=== PATIENT | male | born 1935 | race Caucasian/White ===

== ENCOUNTER 2017-10-03 16:31 | Emergency (ER) | payer MEDICARE ==
[~2017-10-03] VITALS: Ht 177.8 cm; Wt 114.3 kg
[~2017-10-03 16:31] MED LIST: ALLO300T PO; AMLO10TA2 PO; ASPI-630 PO; CLON0.1T PO; HYDR-2868 PO; HYDR25TA9 PO; INSU100I13 SQ; INSU200I SQ; LISI40TA PO; METF-620 PO; METF500T4 PO; METO-247 PO; OXYC30TA64 PO; POTASSIUM CHLO10 MEQ PO; PROAIR HFA8.5 GM IH
[2017-10-03 16:38] VITALS: BP 184/84
--- NOTE | 2017-10-03 17:23 | PHYS DOC ---
Past Medical History Past Medical History: Cancer, Diabetes-Type II, Hypertension Additional Past Medical Histor: hx prostate ca Past Surgical History: Other Additional Past Surgical Histo: prostate 2000 Alcohol Use: None Drug Use: None Adult General Chief Complaint Chief Complaint: MECHANICAL FALL [facility] HPI Patient is a 82 year old male who was blowing leaves off of his doorsteps as he was going down the steps he tripped and fell forward. In the process of falling twisted his body and landed on his back neck and head. He says that he is having head and neck pain primarily in his right occipital region. He lost consciousness for approximately 30 seconds and his says his pupils were not reactive during that time. Patient takes a full dose aspirin daily. He is able to ambulate back to baseline at this time and he says he is feeling back to normal. He has an abrasion to his right ring finger and he says that his tetanus status is up-to-date. He denies any chest abdomen mid back low back or other extremity pain. He is in no obvious distress with normal vital signs. Review of Systems Review of Systems Constitutional: Denies fever or chills [] Eyes: Denies change in visual acuity, redness, or eye pain [] Respiratory: Denies cough or shortness of breath [] Cardiovascular: No additional information not addressed in HPI [] GI: Denies abdominal pain, nausea, vomiting, bloody stools or diarrhea [] : Denies dysuria or hematuria [] Musculoskeletal: Denies back pain or joint pain [] Integument: + abrasion Neurologic: + headache. No focal weakness or sensory changes [] All other systems were reviewed and found to be within normal limits, except as documented in this note. Allergies Allergies Allergies Coded Allergies Type Severity Reaction Last Updated Verified sitagliptin Allergy Severe Anaphylaxis 10/07/14 Yes NSAIDS (Non-Steroidal Anti-Inflamma Allergy Intermediate 10/08/14 Yes Physical Exam Physical Exam Constitutional: Well developed, well nourished, no acute distress, non-toxic appearance. [] HENT: Normocephalic, small contusion to R occipital region, bilateral external ears normal, oropharynx moist, no oral exudates, nose normal. [] Eyes: PERRLA, EOMI, conjunctiva normal, no discharge. [] Neck: Normal range of motion, no midline tenderness, supple, no stridor. [] Cardiovascular:Heart rate regular rhythm, no murmur [] Lungs & Thorax: Bilateral breath sounds clear to auscultation [] Abdomen: Bowel sounds normal, soft, no tenderness, no masses, no pulsatile masses. [] Skin: Warm, dry, no erythema, no rash. [] Back: No tenderness, no CVA tenderness. [] Extremities: No tenderness, no cyanosis, no clubbing, ROM intact, no edema. R index finger abrasion distally Neurologic: Alert and oriented X 3, normal motor function, normal sensory function, no focal deficits noted. [] Current Patient Data Vital Signs Vital Signs Date Time Temp Pulse Resp B/P (MAP) Pulse Ox O2 Delivery O2 Flow Rate FiO2 10/03/17 16:38 97.7 83 20 184/84 (117) 96 Room Air 97.7 EKG EKG [] Radiology/Procedures Radiology/Procedures CT HEAD AND CERVICAL SPINE WO dated 10/03/2017 4:49 PM Indication: Pain, head and neck painpt fell off stairs and hit posterior head, bruising and pain
prior sent. Comparison: No comparison is available. Technique: Contiguous axial imaging the head was performed from skull base to vertex. No contrast administered. In addition, axial imaging of the cervical spine acquired with thin cut coronal and sagittal reconstruction. One or more of the following individualized dose reduction techniques were utilized for this examination: 1. Automated exposure control 2. Adjustment of the mA and/or kV according to patient size 3. Use of iterative reconstruction technique Findings: Ventricles and sulci are mildly prominent for age. No midline shift or mass effect. Mild patchy low density in the deep/subcortical periventricular white matter. No hemorrhage or extra axial collection. Posterior fossa and brainstem unremarkable. Visualized paranasal sinuses and mastoid air cells are clear. No apparent calvarial abnormality. Images of the cervical spine were acquired skull base to T2. Sagittal alignment is anatomic. Vertebral body heights are maintained. No prevertebral soft tissue swelling. Posterior elements are intact. No evidence of fracture. Mild to moderate hypertrophic change of the superior and inferior endplates throughout. Mild arthropathy of the posterior facet joints. No apparent focal disc herniation. There is mild central canal narrowing at C5-C6 and C6-C7 with mild multilevel foraminal narrowing. Visualized soft tissue structures unremarkable. Limited images of lung apices are clear. Nonspecific small calcifications of the left lobe thyroid gland. IMPRESSION HEAD: 1. No evidence of acute intracranial hemorrhage or mass. 2. Mild chronic small vessel ischemic changes and atrophy. IMPRESSION CERVICAL SPINE: 1. No evidence of fracture or malalignment. 2. Mild multilevel spondylosis. Electronically signed by: Pantera Laguerre MD (10/03/2017 5:40 PM) [facility] DICTATED and SIGNED BY: PANTERA LAGUERRE MD DATE: 10/03/171736 Hand x-ray showed no obvious fracture dislocation or foreign body Course & Med Decision Making Course & Med Decision Making Patient with prolonged loss of consciousness given he is on full dose aspirin and his age he'll get head and C-spine CT but I cannot see any reason to image any other parts of his body at this time given he looks well and is denying any other symptoms. Patient is observed in the emergency department for approximately 1.5 hours and his repeat neurologic exam is normal. Workup is negative and his vital signs are normal on repeat exam is well. Patient will be discharged home in stable condition and told to follow with his primary care provider in 3-4 days and come back to the ED sooner with worsening pain fevers vomiting or other general concerns. Aware and agreeable with plan for discharge and verbalized understanding of the above instructions. Dragon Disclaimer Dragon Disclaimer This electronic medical record was generated, in whole or in part, using a voice recognition dictation system. Departure Departure Impression: Primary Impression: CHI (closed head injury) Additional Impressions: Cervical sprain Finger abrasion Disposition: HOME, SELF-CARE Condition: STABLE Referrals: ZANE GATES MD (PCP) Patient Instructions: Concussion and Brain Injury Problem Qualifiers Primary Impression: CHI (closed head injury) Encounter type: initial encounter Qualified Codes: S09.90XA - Unspecified injury of head, initial encounter VIVIAN RICHMOND DO Oct 03, 2017 17:23
--- NOTE | 2017-10-03 17:43 | RAD ---
CT HEAD AND CERVICAL SPINE WO dated 10/03/2017 4:49 PM Indication: Pain, head and neck painpt fell off stairs and hit posterior head, bruising and pain
prior sent. Comparison: No comparison is available. Technique: Contiguous axial imaging the head was performed from skull base to vertex. No contrast administered. In addition, axial imaging of the cervical spine acquired with thin cut coronal and sagittal reconstruction. One or more of the following individualized dose reduction techniques were utilized for this examination: 1. Automated exposure control 2. Adjustment of the mA and/or kV according to patient size 3. Use of iterative reconstruction technique Findings: Ventricles and sulci are mildly prominent for age. No midline shift or mass effect. Mild patchy low density in the deep/subcortical periventricular white matter. No hemorrhage or extra axial collection. Posterior fossa and brainstem unremarkable. Visualized paranasal sinuses and mastoid air cells are clear. No apparent calvarial abnormality. Images of the cervical spine were acquired skull base to T2. Sagittal alignment is anatomic. Vertebral body heights are maintained. No prevertebral soft tissue swelling. Posterior elements are intact. No evidence of fracture. Mild to moderate hypertrophic change of the superior and inferior endplates throughout. Mild arthropathy of the posterior facet joints. No apparent focal disc herniation. There is mild central canal narrowing at C5-C6 and C6-C7 with mild multilevel foraminal narrowing. Visualized soft tissue structures unremarkable. Limited images of lung apices are clear. Nonspecific small calcifications of the left lobe thyroid gland. IMPRESSION HEAD: 1. No evidence of acute intracranial hemorrhage or mass. 2. Mild chronic small vessel ischemic changes and atrophy. IMPRESSION CERVICAL SPINE: 1. No evidence of fracture or malalignment. 2. Mild multilevel spondylosis. Electronically signed by: Jung Laguerre MD (10/03/2017 5:40 PM) [facility]
--- NOTE | 2017-10-04 08:36 | RAD ---
EXAM: Right hand 3 views. HISTORY: Right hand pain after fall. COMPARISON: None. FINDINGS: No fractures are identified. 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 It is also mild at the 1st carpometacarpal joint, and 1st and 2nd metacarpophalangeal joints. Atherosclerotic calcifications are noted. IMPRESSION: 1. No fractures are identified. Osteoarthritis as above.
== END 2017-10-03 18:04 | disposition home or self-care (01) ==
LOC: ER 16:31
DX: S13.4XXA Sprain of ligaments of cervical spine, initial encounter (principal); S00.03XA Contusion of scalp, initial encounter; S60.410A Abrasion of right index finger, initial encounter; E11.9 Type 2 diabetes mellitus without complications; I10 Essential (primary) hypertension; Z79.82 Long term (current) use of aspirin; Z88.8 Allergy status to other drugs, medicaments and biological substances; Z88.6 Allergy status to analgesic agent; W10.9XXA Fall (on) (from) unspecified stairs and steps, initial encounter; Y93.89 Activity, other specified; Y92.89 Other specified places as the place of occurrence of the external cause; Y99.8 Other external cause status
CPT/HCPCS: 70450; 72125; 73130; 99284-25

== ENCOUNTER 2018-04-25 10:56 | Emergency (ER) | payer MEDICARE ==
[2018-04-25 11:19] LABS: POC GLUCOSE 201 mg/dL (70-99)
[2018-04-25 11:57] LABS: ADD MAN DIFF? NO
[2018-04-25 12:01] LABS: BASO # 0.1 x10^3/uL (0.0-0.2); BASO % 1 % (0-3); EOS # 0.1 x10^3/uL (0.0-0.7); EOS % 1 % (0-3); HEMATOCRIT 39.7 % (39.0-53.0); HEMOGLOBIN 13.3 g/dL (13.0-17.5); LYMPH # 1.8 x10^3/uL (1.0-4.8); LYMPH % 15 % (24-48); MEAN CORPUSCULAR HEMOGLOBIN 33 pg (25-35); MEAN CORPUSCULAR HGB CONC 33 g/dL (31-37); MEAN CORPUSCULAR VOLUME 98 fL (79-100); MONO # 0.9 x10^3/uL (0.0-1.1); MONO % 7 % (0-9); NEUT # 9.6 x10^3uL (1.8-7.7); NEUT % 77 % (31-73); PLATELET COUNT 265 x10^3/uL (140-400); RED BLOOD COUNT 4.08 x10^6/uL (4.30-5.70); RED CELL DISTRIBUTION WIDTH 14.8 % (11.5-14.5); WHITE BLOOD COUNT 12.4 x10^3/uL (4.0-11.0)
[2018-04-25 12:14] LABS: ANION GAP 12 (6-14); BLOOD UREA NITROGEN 16 mg/dL (8-26); BUN/CREATININE RATIO 18 (6-20); CALCIUM 9.3 mg/dL (8.5-10.1); CARBON DIOXIDE 29 mmol/L (21-32); CHLORIDE 98 mmol/L (98-107); CREATININE 0.9 mg/dL (0.7-1.3); GFR 80.4; GLUCOSE 208 mg/dL (70-99); POTASSIUM 3.5 mmol/L (3.5-5.1); SODIUM 139 mmol/L (136-145)
[2018-04-25 12:21] LABS: ALBUMIN 3.9 g/dL (3.4-5.0); ALBUMIN/GLOBULIN RATIO 1.3 (1.0-1.7); ALK PHOS 92 U/L (46-116); ALT (SGPT) 31 U/L (16-63); AST (SGOT) 15 U/L (15-37); TOTAL BILIRUBIN 0.5 mg/dL (0.2-1.0)
[2018-04-25 13:26] LABS: BILIRUBIN,URINE NEGATIVE (NEG); CLARITY,URINE CLEAR; COLOR,URINE YELLOW; GLUCOSE,URINE NEGATIVE (NEG); NITRITE,URINE NEGATIVE (NEG); PROTEIN,URINE 30 mg/dL (NEG-TRACE); UROBILINOGEN,URINE 0.2 mg/dL (0.2 mg/dL)
[2018-04-25 13:33] LABS: BACTERIA,URINE FEW /HPF (0-FEW); SQUAMOUS EPITHELIAL CELL,UR OCC /LPF
[2018-04-25 13:34] LABS: RBC,URINE 0 /HPF (0-2)
== END 2018-04-25 13:57 | disposition home or self-care (01) ==
LOC: ER 13:57
DX: E11.65 Type 2 diabetes mellitus with hyperglycemia (principal); I10 Essential (primary) hypertension; I25.10 Atherosclerotic heart disease of native coronary artery without angina pectoris; Z88.6 Allergy status to analgesic agent; Z88.8 Allergy status to other drugs, medicaments and biological substances
CPT/HCPCS: 36415; 80053; 81001; 82962; 85025; 99284

== ENCOUNTER → 2018-09-03 | Outpatient (CLI) | payer MEDICARE ==
[2018-04-25 13:37] VITALS: BP 182/83
[~2018-09-03] MED LIST changes: -AMLO10TA2 PO; +AMLO10TA6 PO; +FERR325T14 PO; +FURO20TA3 PO; +GABA600T2 PO; +HYDR-2869 PO; +LISI-130 PO; -LISI40TA PO; -METF-620 PO; +METF10007 PO; +METF500T16 PO; -METF500T4 PO; +OXYC1TAB8 PO; +POTA10TA12 PO; -POTASSIUM CHLO10 MEQ PO; +ROPI1TAB PO
--- NOTE | 2018-09-03 14:32 | KCIC ---
PA and lateral chest x-ray compared to portal chest x-ray dated October 26, 2017 for cough, intermittent, sometimes productive in the morning. FINDINGS: There is a focal area of pleural the lateral aspect of the right midlung, which is new in the interval, and could reflect loculated pleural fluid or sessile pleural pathology. Further evaluation with CT scan of the chest is recommended in this regard. There is a subtle nodular opacity in the right lower lung, measuring roughly 8 mm. This could be a nipple shadow, or pulmonary nodule. No other lung parenchymal abnormality is are seen. Heart size is borderline enlarged but stable. There is anterior osseous fusion of all thoracic lumbar vertebral bodies in a pattern suggestive of ankylosing spondylitis. Atherosclerosis is seen within the abdominal aorta. IMPRESSION: 1. Focal pleural thickening in the right midlung, new. Considerations include small loculated pleural effusion, pleural thickening from recent prior infectious or inflammatory process, or less likely pleural malignancy. Further evaluation with CT scan of the chest is recommended. 2. 8 mm pulmonary nodule the right lower lung not previously seen. This may reflect a nipple shadow or a pulmonary nodule. This also can be definitively assessed with CT scan of the chest. 3. Fusion of the thoracic vertebral bodies in a pattern reminiscent of ankylosing spondylitis. Electronically signed by: Sulaiman Paredes MD (09/03/2018 2:29 PM) [facility]
== END | disposition home or self-care (01) ==
LOC: KCIC 10:50
PROVIDERS: ATTEND Family Medicine
DX: J90 Pleural effusion, not elsewhere classified (principal); M45.4 Ankylosing spondylitis of thoracic region; I70.0 Atherosclerosis of aorta
CPT/HCPCS: 71046

== ENCOUNTER → 2018-09-12 | Outpatient (CLI) | payer MEDICARE ==
[2018-04-25 13:37] VITALS: BP 182/83
[~2018-09-12] MED LIST changes: +IOHEXOL 300 MG/ML 100ML VIAL. IV ONE
--- NOTE | 2018-09-12 16:47 | KCIC ---
CT of the chest with contrast 09/12/2018 INDICATION: Lung nodule COMPARISON STUDY: Chest radiograph September 03, 2018 TECHNIQUE: Multidetector CT imaging of the chest performed following the administration of IV contrast FINDINGS: Heart size is within normal limits. No pericardial effusion is seen. Coronary calcification is noted. Scattered small mediastinal lymph nodes are noted without evidence of pathologically enlarged mediastinal adenopathy. The left thyroid gland is enlarged with areas of coarse calcification and probable cystic change. Thyroid ultrasound recommended for further characterization. There is no pneumothorax, pleural effusion, or acute consolidative infiltrate. No significant pleural-based mass is identified. Mildly prominent subcostal fat is seen right greater than left. This may be the cause of the apparent pleural thickening on prior radiograph. Small calcified granuloma noted in the right lung base. Limited visualization of the upper abdomen demonstrates cholelithiasis. No other acute changes are seen. No acute osseous abnormalities are identified. IMPRESSION: 1. No evidence of acute cardiopulmonary process is identified. No lung masses or abnormal pleural thickening is seen. 2. Enlargement of the left thyroid gland with areas of calcification and cystic change. Thyroid ultrasound recommended. CT DOSING PQRS STATEMENT: One or more of the following individualized dose reduction techniques were utilized for this examination: 1. Automated exposure control 2. Adjustment of the mA and/or kV according to patient size 3. Use of iterative reconstruction technique Electronically signed by: Kaiser Goodwin MD (09/12/2018 4:44 PM) [facility]
== END | disposition home or self-care (01) ==
LOC: KCIC CT 09:38
PROVIDERS: ATTEND Family Medicine
DX: I25.10 Atherosclerotic heart disease of native coronary artery without angina pectoris (principal); E04.8 Other specified nontoxic goiter; K80.20 Calculus of gallbladder without cholecystitis without obstruction; R59.0 Localized enlarged lymph nodes; J45.909 Unspecified asthma, uncomplicated; I10 Essential (primary) hypertension; E11.9 Type 2 diabetes mellitus without complications; Z79.01 Long term (current) use of anticoagulants
CPT/HCPCS: 71260; 82565; Q9967

== ENCOUNTER → 2018-09-26 | Outpatient (CLI) | payer MEDICARE ==
[2018-04-25 13:37] VITALS: BP 182/83
[~2018-09-26] MED LIST changes: -IOHEXOL 300 MG/ML 100ML VIAL. IV ONE
--- NOTE | 2018-09-26 15:31 | KCIC ---
Thyroid ultrasound HISTORY: Thyromegaly. Right thyroid: * 4.1 cm longitudinal by 1.4 cm AP by 1.7 cm wide. * Homogeneous echotexture without focal lesion. Isthmus: * 2 mm Left thyroid: * 4.7 cm longitudinal by 1.6 cm AP by 2.9 cm wide. * Large heterogeneous mass measures 3.0 x 2.7 x 3.7 cm diameter. Solid appearance with a heterogeneous echotexture. Areas of internal vascularity. There is some internal echogenic reflectors with posterior shadowing compatible with calcification. IMPRESSION:Large complex mass of the left thyroid, with findings concerning for possible malignancy and warranting further evaluation. Electronically signed by: Jung Guzmán MD (09/26/2018 3:25 PM) [facility]
== END | disposition home or self-care (01) ==
LOC: KCIC US 10:01
PROVIDERS: ATTEND Family Medicine
DX: E01.0 Iodine-deficiency related diffuse (endemic) goiter (principal)
CPT/HCPCS: 76536

== ENCOUNTER → 2018-10-23 | Outpatient (CLI) | payer MEDICARE ==
[2018-04-25 13:37] VITALS: BP 182/83
[~2018-10-23] MED LIST changes: +HYDR-2145 PO; -HYDR25TA9 PO
--- NOTE | 2018-10-23 11:16 | RAD ---
Indication: Left thyroid nodule biopsy. TECHNIQUE: After explaining risks and benefits of the procedure, informed consent was obtained. The skin was prepped and draped using usual sterile procedure. 1 percent lidocaine was used for local anesthesia. Under ultrasound guidance 5 FNA passes were made. Bandage was placed. COMPARISON: Ultrasound thyroid from 09/26/2018 FINDINGS/ impression: Left thyroid nodule biopsy without immediate palpitations. Pathology results pending. Electronically signed by: Ivan Torres DO (10/23/2018 11:11 AM) [facility]
--- NOTE | 2018-10-28 14:10 | PATHOLOGY ---
Note [facility] Accession Number: [id number] TESTS RESULT FLAG UNITS REF RANGE LAB Clinician Provided Cytology Information No. of containers..01 Other (Miscellaneous) Source: LEFT THYROID DIAGNOSIS: LEFT THYROID INADEQUATE, INSUFFICIENT CELLS FOR STUDY. BETHESDA CATEGORY I. NONDIAGNOSTIC. THIS INTERPRETATION INCLUDES EVALUATION OF A CELL BLOCK. Signed out by: Nino Navarrete MD, Pathologist NPI- [id number] Performed by: Hayden Bruce, Entry Processor ([facility]) Gross description: 30 ML, RED, CLEAR /LCS FLAG LEGEND: L-Low Normal,H-High Normal,LL-Alert Low,HH-Alert High <-Panic Low,>-Panic High,A-Abnormal,AA-Critical Abnormal Performed at: [address] [place] [address] Neno Harper MD, 02 [facility] [address] [place] [address] Nino Navarrete MD, Specimen Comment: A courtesy copy of this report has been sent to Specimen Comment: [phone]. Specimen Comment: Report sent to Performed at: [address], [place], [place] [id number] MD Neno Harper MD Phone: [phone]
== END | disposition home or self-care (01) ==
LOC: US 10:48
PROVIDERS: ATTEND Otolaryngology
DX: E04.1 Nontoxic single thyroid nodule (principal); Z88.8 Allergy status to other drugs, medicaments and biological substances
CPT/HCPCS: 10022; 60300; 76942

== ENCOUNTER 2019-02-23 12:19 | Inpatient (IN) | payer MEDICARE ==
[~2019-02-23] VITALS: Ht 177.8 cm; Wt 109.1 kg
[~2019-02-23 12:19] MED LIST changes: +ALBU2.5V8 IH; -AMLO10TA6 PO; +AMLO10TA8 PO; -GABA600T2 PO; +GABA600T7 PO; -PROAIR HFA8.5 GM IH
[2019-02-23] MEDS ORDERED: ONDANSETRON PF 4 MG/2 ML VIAL. IV ONE (13:30)
[2019-02-23] MEDS ORDERED: fentaNYL PF VIAL 100 MCG/2 ML VIAL IV ONE (13:30)
--- NOTE | 2019-02-23 13:31 | PHYS DOC ---
Past Medical History Past Medical History: CAD, Diabetes-Type II, Hypertension Additional Past Medical Histor: hx prostate ca Past Surgical History: Other Additional Past Surgical Histo: prostate 2000 Alcohol Use: None Drug Use: None Adult General Chief Complaint Chief Complaint: DIZZY/LIGHT HEADED HPI HPI Patient is a 83 year old male with a history of diabetes presents to the ED complaining of leg pain and vomiting 3 days. Patient states that 3 days ago he smoked some meat on the grill and worked on cleaning up the patio. Family states that that this is more activity than he normally does and states he mighth ave over done it. States since then he has been complaining of leg pain and pain with walking. States he feels weak. Family reports he had trouble finding the bathroom at his house today. Patient is alert and oriented x 3 in the ED. Patient states his blood sugar has been a little high (in the 200s). Patient is a poor historian. Denies chest pain, shortness of breath, abdominal pain, dizziness, weakness, headache, injury, fever. Review of Systems Review of Systems Constitutional: Denies fever or chills [] Eyes: Denies change in visual acuity, redness, or eye pain [] HENT: Denies nasal congestion or sore throat [] Respiratory: Denies cough or shortness of breath [] Cardiovascular: No additional information not addressed in HPI [] GI: Complains of vomiting. Denies abdominal pain, bloody stools or diarrhea [] : Denies dysuria or hematuria [] Musculoskeletal: Complains of hip pain. Denies back pain. [] Integument: Denies rash or skin lesions [] Neurologic: Denies headache, focal weakness or sensory changes [] All other systems were reviewed and found to be within normal limits, except as documented in this note. Current Medications Current Medications Current Medications Medications (Trade) Dose Ordered Sig/Cornelius Start Time Stop Time Status Last Admin Dose Admin Acetaminophen/ Hydrocodone Bitart (Lortab 5/325) 1 tab 1X ONCE 02/23/19 15:45 02/23/19 15:46 DC 02/23/19 15:59 1 TAB Fentanyl Citrate (Fentanyl 2ml Vial) 25 mcg 1X ONCE 02/23/19 13:30 02/23/19 13:31 DC 02/23/19 14:12 25 MCG Info (CONTRAST GIVEN -- Rx MONITORING) 1 each PRN DAILY PRN 02/23/19 15:00 02/25/19 14:59 Iohexol (Omnipaque 300 Mg/ml) 75 ml 1X ONCE 02/23/19 15:00 02/23/19 15:01 DC Ondansetron HCl (Zofran) 4 mg 1X ONCE 02/23/19 13:30 02/23/19 13:31 DC 02/23/19 14:11 4 MG Sodium Chloride 1,000 ml @ 1,000 mls/hr 1X ONCE 02/23/19 14:30 02/23/19 15:29 DC 02/23/19 14:30 1,000 MLS/HR Allergies Allergies Allergies Coded Allergies Type Severity Reaction Last Updated Verified sitagliptin Allergy Severe Anaphylaxis 10/07/14 Yes NSAIDS (Non-Steroidal Anti-Inflamma Allergy Intermediate 10/08/14 Yes Physical Exam Physical Exam Constitutional: Well developed, well nourished, no acute distress, non-toxic appearance. [] HENT: Normocephalic, atraumatic, bilateral external ears normal, oropharynx moist, no oral exudates, nose normal. [] normal, no discharge. [] Neck: Normal range of motion, no tenderness, supple, no stridor. [] Cardiovascular:Heart rate regular rhythm, no murmur [] Lungs & Thorax: Bilateral breath sounds clear to auscultation [] Abdomen: Bowel sounds normal, soft, no tenderness, no masses, no pulsatile masses. [] Skin: Warm, dry, no erythema, no rash. [] Back: No tenderness, no CVA tenderness. [] Extremities: No tenderness, no cyanosis, no clubbing, ROM intact, no edema. [] Neurologic: Alert and oriented X 3, normal motor function, normal sensory function, no focal deficits noted. [] Psychologic: Affect normal, judgement normal, mood normal. [] Current Patient Data Vital Signs Vital Signs Date Time Temp Pulse Resp B/P (MAP) Pulse Ox O2 Delivery O2 Flow Rate FiO2 02/23/19 15:40 82 20 98 02/23/19 14:12 Room Air 02/23/19 13:35 98.6 160/96 (117) 98.6 Lab Values Laboratory Tests Test 02/23/19 13:24 02/23/19 13:33 4/15/19 15:25 Glucose (Fingerstick) 246 mg/dL (70-99) H White Blood Count 16.1 x10^3/uL (4.0-11.0) H Red Blood Count 4.00 x10^6/uL (4.30-5.70) L Hemoglobin 12.8 g/dL (13.0-17.5) L Hematocrit 37.6 % (39.0-53.0) L Mean Corpuscular Volume 94 fL (79-100) Mean Corpuscular Hemoglobin 32 pg (25-35) Mean Corpuscular Hemoglobin Concent 34 g/dL (31-37) Red Cell Distribution Width 12.9 % (11.5-14.5) Platelet Count 272 x10^3/uL (140-400) Neutrophils (%) (Auto) 89 % (31-73) H Lymphocytes (%) (Auto) 5 % (24-48) L Monocytes (%) (Auto) 5 % (0-9) Eosinophils (%) (Auto) 0 % (0-3) Basophils (%) (Auto) 0 % (0-3) Neutrophils # (Auto) 14.4 x10^3uL (1.8-7.7) H Lymphocytes # (Auto) 0.8 x10^3/uL (1.0-4.8) L Monocytes # (Auto) 0.8 x10^3/uL (0.0-1.1) Eosinophils # (Auto) 0.0 x10^3/uL (0.0-0.7) Basophils # (Auto) 0.1 x10^3/uL (0.0-0.2) Segmented Neutrophils % 84 % (35-66) H Band Neutrophils % 4 % (0-9) Lymphocytes % 5 % (24-48) L Monocytes % 7 % (0-10) Platelet Estimate Adequate (ADEQUATE) Sodium Level 120 mmol/L (136-145) *L Potassium Level 4.5 mmol/L (3.5-5.1) Chloride Level 83 mmol/L (98-107) L Carbon Dioxide Level 23 mmol/L (21-32) Anion Gap 14 (6-14) Blood Urea Nitrogen 19 mg/dL (8-26) Creatinine 1.1 mg/dL (0.7-1.3) Estimated GFR (Cockcroft-Gault) 63.8 BUN/Creatinine Ratio 17 (6-20) Glucose Level 237 mg/dL (70-99) H Calcium Level 9.5 mg/dL (8.5-10.1) Total Bilirubin 0.5 mg/dL (0.2-1.0) Aspartate Amino Transferase (AST) 11 U/L (15-37) L Alanine Aminotransferase (ALT) 24 U/L (16-63) Alkaline Phosphatase 180 U/L (46-116) H Troponin I Quantitative < 0.017 ng/mL (0.000-0.055) Total Protein 7.5 g/dL (6.4-8.2) Albumin 3.6 g/dL (3.4-5.0) Albumin/Globulin Ratio 0.9 (1.0-1.7) L Lipase 135 U/L (73-393) Urine Collection Type Unknown Urine Color Yellow Urine Clarity Clear Urine pH 6.5 Urine Specific Rector >=1.030 Urine Protein Negative mg/dL (NEG-TRACE) Urine Glucose (UA) Negative mg/dL (NEG) Urine Ketones (Stick) Negative mg/dL (NEG) Urine Blood Negative (NEG) Urine Nitrite Negative (NEG) Urine Bilirubin Negative (NEG) Urine Urobilinogen Dipstick 0.2 mg/dL (0.2 mg/dL) Urine Leukocyte Esterase Negative (NEG) Urine RBC 0 /HPF (0-2) Urine WBC 0 /HPF (0-4) Urine Squamous Epithelial Cells Occ /LPF Urine Bacteria 0 /HPF (0-FEW) Urine Hyaline Casts Occasional /HPF Urine Mucus Slight /LPF Laboratory Tests 02/23/19 13:33 Laboratory Tests 02/23/19 13:33 EKG EKG [] Radiology/Procedures Radiology/Procedures []PROCEDURE: CT ABD PELV W/ IV CONTRST ONLY CT study abdomen and pelvis with contrast Clinical indications: Vomiting and nausea. Abdominal pain. History of prostate cancer with prostatectomy 19 years ago. COMPARISON: October 07, 2014. TECHNIQUE: After IV infusion of 75 cc of Omnipaque 300, helical CT scanning of abdomen and pelvis was performed. No GI contrast was administered. This may decrease the sensitivity to detect GI tract pathology. PQRS compliance Statement One or more of the following individualized dose reduction techniques were utilized for this study: 1. Automated exposure control 2. Adjustment of the mA and/or kV according to patient size 3. Use of iterative reconstruction technique FINDINGS: The liver and spleen and pancreas are normal. Small radiopaque gallstone is seen within the gallbladder measuring 8 mm in size. No gallbladder wall thickening is evident. No extrahepatic biliary ductal dilatation is seen. Duodenal diverticulum is seen. No adrenal mass is evident. No hydronephrosis or hydroureter is evident. Both kidneys are normal. Urinary bladder wall is smooth. Surgical clips and associated streaking artifact are seen within the pelvis related to a previous prostatectomy. No soft tissue mass is seen within the pelvis. No focal aneurysmal dilatation of the abdominal aorta is seen. No enlarged abdominal or pelvic lymphadenopathy is evident. Urinary bladder wall is smooth. The appendix and terminal ileum are unremarkable. No obstructive bowel pattern is evident. No free air or free fluid or mesenteric edema is evident. Calcified granuloma of the posterior right lung base is evident. No lytic process is evident. IMPRESSION: No acute abnormality of the abdomen or pelvis. 8 mm radiopaque gallstone. PROCEDURE: PORTABLE CHEST 1V EXAM: Chest, single view. HISTORY: Hypertension. Vomiting. COMPARISON: CT dated 09/12/2018. FINDINGS: A frontal view of the chest is obtained. There is no infiltrate, pleural effusion or pneumothorax. There is suspected lingular atelectasis. There is lateral right pleural thickening due to extrapleural fat. There is mild cardiomegaly. IMPRESSION: No acute pulmonary finding. CT HEAD WO CONTRAST History: Vomiting, nausea Comparison: October 03, 2017 Technique: Noncontrast CT imaging was performed of the head. Exposure: One or more of the following individualized dose reduction techniques were utilized for this examination: 1. Automated exposure control 2. Adjustment of the mA and/or kV according to patient size 3. Use of iterative reconstruction technique. Findings: No acute extra-axial or parenchymal hemorrhage is identified. There is no significant intra-axial mass effect, midline shift, or extra-axial fluid collection. The martino-white differentiation of the major vascular territories is preserved. Ventricular size is similar. There is again mild third and lateral ventriculomegaly although there is generalized supratentorial atrophy present. There is again scattered mild to moderate ill-defined low-density of the supratentorial parenchyma greater of the parietal lobes. Mastoid air cells are aerated. There is again small probable mucous retention cyst left sphenoid sinus. There is atherosclerotic calcification carotid siphons bilaterally. No acute calvarial abnormality is identified. Impression: 1. No acute intracranial abnormality is identified. There is again generalized supratentorial atrophy. Ill-defined low-density of the supratentorial parenchyma is most commonly due to chronic microvascular ischemic disease in a patient this age. Course & Med Decision Making Course & Med Decision Making Pertinent Labs and Imaging studies reviewed. (See chart for details) Patient given 1 liter of fluids in the ED. Alert and oriented. States he is feeling better with pain medication in the ED. No focal neuro deficits. []Discussed lab and imaging findings with hospitalist, Dr. Stoll. Agrees to admission further management of patient. Patient stable for admission. Dragon Disclaimer Dragon Disclaimer This electronic medical record was generated, in whole or in part, using a voice recognition dictation system. Departure Departure Impression: Primary Impression: Hyperglycemia Additional Impression: Hyponatremia Disposition: ADMITTED INPATIENT Admitting Physician: Other (Dodie) Condition: STABLE Referrals: MIGUEL DEVI MD (PCP) Problem Qualifiers LASHAWN CAIN Feb 23, 2019 13:31
[2019-02-23 13:45] LABS: BASO # 0.1 x10^3/uL (0.0-0.2); BASO % 0 % (0-3); EOS % 0 % (0-3); HEMATOCRIT 37.6 % (39.0-53.0); HEMOGLOBIN 12.8 g/dL (13.0-17.5); LYMPH # 0.8 x10^3/uL (1.0-4.8); LYMPH % 5 % (24-48); MEAN CORPUSCULAR HEMOGLOBIN 32 pg (25-35); MEAN CORPUSCULAR HGB CONC 34 g/dL (31-37); MEAN CORPUSCULAR VOLUME 94 fL (79-100); MONO # 0.8 x10^3/uL (0.0-1.1); MONO % 5 % (0-9); NEUT # 14.4 x10^3uL (1.8-7.7); NEUT % 89 % (31-73); PLATELET COUNT 272 x10^3/uL (140-400); RED CELL DISTRIBUTION WIDTH 12.9 % (11.5-14.5); WHITE BLOOD COUNT 16.1 x10^3/uL (4.0-11.0)
--- NOTE | 2019-02-23 14:14 | EKG ---
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
[2019-02-23 14:16] LABS: CALCIUM 9.5 mg/dL (8.5-10.1); CREATININE 1.1 mg/dL (0.7-1.3); GFR 63.8; POTASSIUM 4.5 mmol/L (3.5-5.1)
[2019-02-23 14:21] LABS: ALBUMIN 3.6 g/dL (3.4-5.0); ALBUMIN/GLOBULIN RATIO 0.9 (1.0-1.7); TOTAL BILIRUBIN 0.5 mg/dL (0.2-1.0); TOTAL PROTEIN 7.5 g/dL (6.4-8.2)
--- NOTE | 2019-02-23 14:26 | RAD ---
EXAM: Chest, single view. HISTORY: Hypertension. Vomiting. COMPARISON: CT dated 09/12/2018. FINDINGS: A frontal view of the chest is obtained. There is no infiltrate, pleural effusion or pneumothorax. There is suspected lingular atelectasis. There is lateral right pleural thickening due to extrapleural fat. There is mild cardiomegaly. IMPRESSION: No acute pulmonary finding. Electronically signed by: Sheila Anguiano MD (02/23/2019 2:23 PM) [place] [id number]
[2019-02-23 14:27] LABS: % BANDS 4 % (0-9); % LYMPHS 5 % (24-48); % MONOS 7 % (0-10); % SEGS 84 % (35-66); PLT ESTIMATE ADEQUATE (ADEQUATE)
[2019-02-23] MEDS ORDERED: IV NORMAL SALINE 1000ML BAG 1,000 ML IV ONE (14:30)
[2019-02-23] MEDS ORDERED: CONTRAST GIVEN. MC PRN (15:00)
[2019-02-23] MEDS ORDERED: IOHEXOL 300 MG/ML 100ML VIAL. IV ONE (15:00)
--- NOTE | 2019-02-23 15:15 | RAD ---
CT HEAD WO CONTRAST History: Vomiting, nausea Comparison: October 03, 2017 Technique: Noncontrast CT imaging was performed of the head. Exposure: One or more of the following individualized dose reduction techniques were utilized for this examination: 1. Automated exposure control 2. Adjustment of the mA and/or kV according to patient size 3. Use of iterative reconstruction technique. Findings: No acute extra-axial or parenchymal hemorrhage is identified. There is no significant intra-axial mass effect, midline shift, or extra-axial fluid collection. The martino-white differentiation of the major vascular territories is preserved. Ventricular size is similar. There is again mild third and lateral ventriculomegaly although there is generalized supratentorial atrophy present. There is again scattered mild to moderate ill-defined low-density of the supratentorial parenchyma greater of the parietal lobes. Mastoid air cells are aerated. There is again small probable mucous retention cyst left sphenoid sinus. There is atherosclerotic calcification carotid siphons bilaterally. No acute calvarial abnormality is identified. Impression: 1. No acute intracranial abnormality is identified. There is again generalized supratentorial atrophy. Ill-defined low-density of the supratentorial parenchyma is most commonly due to chronic microvascular ischemic disease in a patient this age. Electronically signed by: Pepe Torre MD (02/23/2019 3:13 PM) [id number]
--- NOTE | 2019-02-23 15:24 | RAD ---
CT study abdomen and pelvis with contrast Clinical indications: Vomiting and nausea. Abdominal pain. History of prostate cancer with prostatectomy 19 years ago. COMPARISON: October 07, 2014. TECHNIQUE: After IV infusion of 75 cc of Omnipaque 300, helical CT scanning of abdomen and pelvis was performed. No GI contrast was administered. This may decrease the sensitivity to detect GI tract pathology. PQRS compliance Statement One or more of the following individualized dose reduction techniques were utilized for this study: 1. Automated exposure control 2. Adjustment of the mA and/or kV according to patient size 3. Use of iterative reconstruction technique FINDINGS: The liver and spleen and pancreas are normal. Small radiopaque gallstone is seen within the gallbladder measuring 8 mm in size. No gallbladder wall thickening is evident. No extrahepatic biliary ductal dilatation is seen. Duodenal diverticulum is seen. No adrenal mass is evident. No hydronephrosis or hydroureter is evident. Both kidneys are normal. Urinary bladder wall is smooth. Surgical clips and associated streaking artifact are seen within the pelvis related to a previous prostatectomy. No soft tissue mass is seen within the pelvis. No focal aneurysmal dilatation of the abdominal aorta is seen. No enlarged abdominal or pelvic lymphadenopathy is evident. Urinary bladder wall is smooth. The appendix and terminal ileum are unremarkable. No obstructive bowel pattern is evident. No free air or free fluid or mesenteric edema is evident. Calcified granuloma of the posterior right lung base is evident. No lytic process is evident. IMPRESSION: No acute abnormality of the abdomen or pelvis. 8 mm radiopaque gallstone. Electronically signed by: Wilian Kilpatrick MD (02/23/2019 3:21 PM) [id number]
[2019-02-23 15:42] LABS: BILIRUBIN,URINE NEGATIVE (NEG); CLARITY,URINE CLEAR; COLOR,URINE YELLOW; NITRITE,URINE NEGATIVE (NEG); PH,URINE 6.5; PROTEIN,URINE NEGATIVE (NEG-TRACE); UROBILINOGEN,URINE 0.2 mg/dL (0.2 mg/dL)
[2019-02-23] MEDS ORDERED: HYDROcodone/APAP 5/325MG 1 TAB TABLET PO ONE (15:45)
[2019-02-23 15:47] LABS: BACTERIA,URINE 0 /HPF (0-FEW); RBC,URINE 0 /HPF (0-2); SQUAMOUS EPITHELIAL CELL,UR OCC /LPF; WBC,URINE 0 /HPF (0-4)
[2019-02-23 15:48] LABS: HYALINE CASTS, URINE OCCASIONAL /HPF
[2019-02-23] MEDS ORDERED: ONDANSETRON PF 4 MG/2 ML VIAL. IV PRN (16:15)
[2019-02-23] MEDS ORDERED: ACETAMINOPHEN 325 MG TABLET. PO PRN (16:15)
[2019-02-23] MEDS ORDERED: fentaNYL PF VIAL 100 MCG/2 ML VIAL IV PRN (16:15)
[2019-02-23 17:50] VITALS: BP 190/87
[2019-02-23] MEDS ORDERED: ACET325T9 PO (18:37)
[2019-02-23] MEDS ORDERED: CHOL10003 PO (18:37)
[2019-02-23] MEDS ORDERED: OMEG-165 PO (18:37)
[2019-02-23] MEDS ORDERED: NPH,100V SQ (18:37)
[2019-02-23] MEDS ORDERED: INSU100V5 IJ (18:37)
[2019-02-23 19:00] VITALS: BP 137/61
--- NOTE | 2019-02-23 19:13 | NUR ---
Pt arrived from ED at 1755 per W/C to room 506. Reviewed home meds with pt and his . Medicated for pain and clear liquids provided.
[2019-02-23] MEDS ORDERED: MAGNESIUM HYDROXIDE 2,400 MG/30 ML ORAL.SUSP. PO PRN (20:00)
[2019-02-23] MEDS ORDERED: DEXTROSE 50% 25 GM / 50ML DISP.SYRIN. IV PRN (20:00)
[2019-02-23] MEDS ORDERED: MAG HYDROX/ALUMINUM HYD/SIMETH 30 ML ORAL.SUSP PO PRN (20:00)
--- NOTE | 2019-02-23 20:14 | PDOC1 ---
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 family states he has not been eating or drinking much and has been falling alot. he reportedly had trouble finding bathroom at home today. sugars have been stable. takes all his meds as prescribed. denies chest pain, sob, diarrhea. no headache or fevers. patient takes lasix at home. states he has been unsteady on feet for 3-4 days. at bedside Na found to be 120 in ED. hospitalist called for admission. Past Medical History Cardiovascular: CAD, HTN Pulmonary: No pertinent hx GI: No pertinent hx Heme/Onc: Other Musculoskeletal: low back pain Endocrine: Diabetes Past Surgical History Past Surgical History: Other, No pertinent history Family History Family History: No Significant, Hypertension Social History ALCOHOL: none Drugs: None Current Problem List Problem List Problems Medical Problems: (1) Hyperglycemia Status: Acute (2) Hyponatremia Status: Acute Current Medications Current Medications Current Medications Fentanyl Citrate (Fentanyl 2ml Vial) 25 mcg 1X ONCE IV Last administered on at 14:12; Start 02/23/19 at 13:30; Stop 02/23/19 at 13:31; Status DC Ondansetron HCl (Zofran) 4 mg 1X ONCE IV Last administered on 02/23/19at 14:11 ; Start 02/23/19 at 13:30; Stop 02/23/19 at 13:31; Status DC Sodium Chloride 1,000 ml @ 1,000 mls/hr 1X ONCE IV Last administered on at 14:30; Start 02/23/19 at 14:30; Stop 02/23/19 at 15:29; Status DC Iohexol (Omnipaque 300 Mg/ml) 75 ml 1X ONCE IV ; Start 02/23/19 at 15:00; Stop 02/23/19 at 15:01; Status DC Info (CONTRAST GIVEN -- Rx MONITORING) 1 each PRN DAILY PRN MC SEE COMMENTS; Start 02/23/19 at 15:00; Stop 02/25/19 at 14:59 Acetaminophen/ Hydrocodone Bitart (Lortab 5/325) 1 tab 1X ONCE PO Last administered on 02/23/19at 15:59; Start 02/23/19 at 15:45; Stop 02/23/19 at 15:46 ; Status DC Ondansetron HCl (Zofran) 4 mg PRN Q8HRS PRN IV NAUSEA/VOMITING; Start 02/23/19 at 16:15; Stop 02/24/19 at 16:14 Fentanyl Citrate (Fentanyl 2ml Vial) 50 mcg PRN Q1HR PRN IV PAIN Last administered on 02/23/19at 18:12; Start 02/23/19 at 16:15; Stop 02/24/19 at 16:14 Acetaminophen (Tylenol) 650 mg PRN Q4HRS PRN PO FEVER; Start 02/23/19 at 16:15 ; Stop 02/24/19 at 16:14 Potassium Chloride/Sodium Chloride 1,000 ml @ 100 mls/hr Q10H IV ; Start at 20:30 Al Hydroxide/Mg Hydroxide (Mylanta Plus Xs) 30 ml PRN Q3HRS PRN PO HEARTBURN / GAS; Start 02/23/19 at 20:00 Senna/Docusate Sodium (Senna Plus) 1 tab BID PO ; Start 02/23/19 at 21:00 Magnesium Hydroxide (Milk Of Magnesia) 2,400 mg PRN Q12HR PRN PO CONSTIPATION; Start 02/23/19 at 20:00 Heparin Sodium (Porcine) (Heparin Sodium) 5,000 unit Q8HRS SQ ; Start 02/23/19 at 22:00 Active Scripts Active Reported Tylenol (Acetaminophen) 325 Mg Tablet 1 Tab PO HS Vitamin D3 (Cholecalciferol (Vitamin D3)) 1,000 Unit Tablet 1 Tab PO DAILY Fish Oil 1,000 mg Softgel (Snyder-3S/Dha/Epa/Fish Oil) 1 Each Capsule 1 Each PO DAILY Humulin N (Nph, Human Insulin Isophane) 100 Unit/1 Ml Vial 18 Unit SQ [id number] Humulin R (Insulin Regular, Human) 100 Unit/1 Ml Vial 15 Unit IJ [id number] Oxycodon-Acetaminophen 7.5-325 (Oxycodone Hcl/Acetaminophen) 1 Each Tablet 7.5- 325 Mg PO PRN Q6HRS PRN Furosemide 20 Mg Tablet 20 Mg PO DAILY Ferrous Sulfate 325 Mg Tablet 325 Mg PO TID Gabapentin 600 Mg Tablet 600 Mg PO BID Aspirin 81 Mg Tab.chew 81 Mg PO DAILY08 last dose this amnext dose tomorrow am Metoprolol Succinate ( Xl ) (Metoprolol Succinate) 100 Mg Tab.er.24h 100 Mg PO DAILY last dose this am next dose tomorrow am Metformin Hcl 500 Mg Tablet 1,000 Mg PO BIDWMEALS need to take with supper Lisinopril 40 Mg Tablet 40 Mg PO DAILY last dose this am next dose in am Allergies Allergies: Coded Allergies: sitagliptin (Verified Allergy, Severe, Anaphylaxis, 10/07/14) NSAIDS (Non-Steroidal Anti-Inflamma (Verified Allergy, Intermediate, 10/08) ROS Review of System CONSTITUTIONAL: No fever or chills EYES: No recent changes SKIN: No rash or itching CARDIOVASCULAR: No chest pain, syncope, palpitations, or edema RESPIRATORY: No SOB or cough GASTROINTESTINAL: No nausea, vomiting or abdominal pain NEUROLOGICAL: No headaches or weakness ENDOCRINE: No cold or heat intolerance GENITOURINARY: No urgency or frequency of urination MUSCULOSKELETAL: No back pain or joint pain LYMPHATICS: No enlarged lymph nodes PSYCHIATRIC: No anxiety or depression Physical Exam Physical Exam GENERAL: No apparent distress. Alert and oriented. HEENT: Head normocephalic, atraumatic. NECK: Supple LUNGS: Clear to auscultation. HEART: RRR, S1, S2 present, pulses intact ABDOMEN: Soft, positive bowel sounds. EXTREMITIES: No cyanosis or edema. NEUROLOGIC: Normal speech, normal tone PSYCHIATRIC: Normal affect, normal mood. SKIN: No ulceration. Vitals Vitals Vital Signs Date Time Temp Pulse Resp B/P (MAP) Pulse Ox O2 Delivery O2 Flow Rate FiO2 02/23/19 18:42 20 94 02/23/19 18:12 Room Air 02/23/19 17:50 97.9 81 190/87 (121) 97.9 Labs Labs Laboratory Tests Test 02/23/19 13:24 02/23/19 13:33 02/23/19 15:25 Glucose (Fingerstick) 246 mg/dL (70-99) White Blood Count 16.1 x10^3/uL (4.0-11.0) Red Blood Count 4.00 x10^6/uL (4.30-5.70) Hemoglobin 12.8 g/dL (13.0-17.5) Hematocrit 37.6 % (39.0-53.0) Mean Corpuscular Volume 94 fL (79-100) Mean Corpuscular Hemoglobin 32 pg (25-35) Mean Corpuscular Hemoglobin Concent 34 g/dL (31-37) Red Cell Distribution Width 12.9 % (11.5-14.5) Platelet Count 272 x10^3/uL (140-400) Neutrophils (%) (Auto) 89 % (31-73) Lymphocytes (%) (Auto) 5 % (24-48) Monocytes (%) (Auto) 5 % (0-9) Eosinophils (%) (Auto) 0 % (0-3) Basophils (%) (Auto) 0 % (0-3) Neutrophils # (Auto) 14.4 x10^3uL (1.8-7.7) Lymphocytes # (Auto) 0.8 x10^3/uL (1.0-4.8) Monocytes # (Auto) 0.8 x10^3/uL (0.0-1.1) Eosinophils # (Auto) 0.0 x10^3/uL (0.0-0.7) Basophils # (Auto) 0.1 x10^3/uL (0.0-0.2) Segmented Neutrophils % 84 % (35-66) Band Neutrophils % 4 % (0-9) Lymphocytes % 5 % (24-48) Monocytes % 7 % (0-10) Platelet Estimate Adequate (ADEQUATE) Sodium Level 120 mmol/L (136-145) Potassium Level 4.5 mmol/L (3.5-5.1) Chloride Level 83 mmol/L (98-107) Carbon Dioxide Level 23 mmol/L (21-32) Anion Gap 14 (6-14) Blood Urea Nitrogen 19 mg/dL (8-26) Creatinine 1.1 mg/dL (0.7-1.3) Estimated GFR (Cockcroft-Gault) 63.8 BUN/Creatinine Ratio 17 (6-20) Glucose Level 237 mg/dL (70-99) Calcium Level 9.5 mg/dL (8.5-10.1) Total Bilirubin 0.5 mg/dL (0.2-1.0) Aspartate Amino Transf (AST/SGOT) 11 U/L (15-37) Alanine Aminotransferase (ALT/SGPT) 24 U/L (16-63) Alkaline Phosphatase 180 U/L (46-116) Troponin I Quantitative < 0.017 ng/mL (0.000-0.055) Total Protein 7.5 g/dL (6.4-8.2) Albumin 3.6 g/dL (3.4-5.0) Albumin/Globulin Ratio 0.9 (1.0-1.7) Lipase 135 U/L (73-393) Urine Collection Type Unknown Urine Color Yellow Urine Clarity Clear Urine pH 6.5 Urine Specific [place] >=1.030 Urine Protein Negative mg/dL (NEG-TRACE) Urine Glucose (UA) Negative mg/dL (NEG) Urine Ketones (Stick) Negative mg/dL (NEG) Urine Blood Negative (NEG) Urine Nitrite Negative (NEG) Urine Bilirubin Negative (NEG) Urine Urobilinogen Dipstick 0.2 mg/dL (0.2 mg/dL) Urine Leukocyte Esterase Negative (NEG) Urine RBC 0 /HPF (0-2) Urine WBC 0 /HPF (0-4) Urine Squamous Epithelial Cells Occ /LPF Urine Bacteria 0 /HPF (0-FEW) Urine Hyaline Casts Occasional /HPF Urine Mucus Slight /LPF Laboratory Tests Test 02/23/19 13:24 02/23/19 13:33 02/23/19 15:25 Glucose (Fingerstick) 246 mg/dL (70-99) White Blood Count 16.1 x10^3/uL (4.0-11.0) Red Blood Count 4.00 x10^6/uL (4.30-5.70) Hemoglobin 12.8 g/dL (13.0-17.5) Hematocrit 37.6 % (39.0-53.0) Mean Corpuscular Volume 94 fL (79-100) Mean Corpuscular Hemoglobin 32 pg (25-35) Mean Corpuscular Hemoglobin Concent 34 g/dL (31-37) Red Cell Distribution Width 12.9 % (11.5-14.5) Platelet Count 272 x10^3/uL (140-400) Neutrophils (%) (Auto) 89 % (31-73) Lymphocytes (%) (Auto) 5 % (24-48) Monocytes (%) (Auto) 5 % (0-9) Eosinophils (%) (Auto) 0 % (0-3) Basophils (%) (Auto) 0 % (0-3) Neutrophils # (Auto) 14.4 x10^3uL (1.8-7.7) Lymphocytes # (Auto) 0.8 x10^3/uL (1.0-4.8) Monocytes # (Auto) 0.8 x10^3/uL (0.0-1.1) Eosinophils # (Auto) 0.0 x10^3/uL (0.0-0.7) Basophils # (Auto) 0.1 x10^3/uL (0.0-0.2) Segmented Neutrophils % 84 % (35-66) Band Neutrophils % 4 % (0-9) Lymphocytes % 5 % (24-48) Monocytes % 7 % (0-10) Platelet Estimate Adequate (ADEQUATE) Sodium Level 120 mmol/L (136-145) Potassium Level 4.5 mmol/L (3.5-5.1) Chloride Level 83 mmol/L (98-107) Carbon Dioxide Level 23 mmol/L (21-32) Anion Gap 14 (6-14) Blood Urea Nitrogen 19 mg/dL (8-26) Creatinine 1.1 mg/dL (0.7-1.3) Estimated GFR (Cockcroft-Gault) 63.8 BUN/Creatinine Ratio 17 (6-20) Glucose Level 237 mg/dL (70-99) Calcium Level 9.5 mg/dL (8.5-10.1) Total Bilirubin 0.5 mg/dL (0.2-1.0) Aspartate Amino Transf (AST/SGOT) 11 U/L (15-37) Alanine Aminotransferase (ALT/SGPT) 24 U/L (16-63) Alkaline Phosphatase 180 U/L (46-116) Troponin I Quantitative < 0.017 ng/mL (0.000-0.055) Total Protein 7.5 g/dL (6.4-8.2) Albumin 3.6 g/dL (3.4-5.0) Albumin/Globulin Ratio 0.9 (1.0-1.7) Lipase 135 U/L (73-393) Urine Collection Type Unknown Urine Color Yellow Urine Clarity Clear Urine pH 6.5 Urine Specific [place] >=1.030 Urine Protein Negative mg/dL (NEG-TRACE) Urine Glucose (UA) Negative mg/dL (NEG) Urine Ketones (Stick) Negative mg/dL (NEG) Urine Blood Negative (NEG) Urine Nitrite Negative (NEG) Urine Bilirubin Negative (NEG) Urine Urobilinogen Dipstick 0.2 mg/dL (0.2 mg/dL) Urine Leukocyte Esterase Negative (NEG) Urine RBC 0 /HPF (0-2) Urine WBC 0 /HPF (0-4) Urine Squamous Epithelial Cells Occ /LPF Urine Bacteria 0 /HPF (0-FEW) Urine Hyaline Casts Occasional /HPF Urine Mucus Slight /LPF VTE Prophylaxis Ordered VTE Prophylaxis Devices: Yes VTE Pharmacological Prophylaxi: Yes Assessment/Plan Assessment/Plan ASSESSMENT: Hyponatremia, severe Hypokalemia Vomiting, resolving Alkaline Phosphatemia Leukocytosis BL Hip pain CAD DM Obesity PLAN: admit to tele bed follow Na check serum osmolarity and urine Na check AM cortisol check TSH replace K repeat LFTs in AM given elevated alk phos IVF for now hold home lasix check bilateral xrays of hip PT consult continue home meds for DM, CAD check cbc in AM, defer abx, likely reactive. MICHAEL MATHEWS MD Feb 23, 2019 20:14
[2019-02-23] MEDS: GABAPENTIN 300 MG CAPSULE. PO SCH (21:15)
[2019-02-23] MEDS: FERROUS SULFATE 325 MG TABLET. PO SCH (21:15)
[2019-02-23] MEDS: SENNOSIDES/DOCUSATE 8.6/50MG TABLET. PO SCH (21:15)
[2019-02-23] MEDS: ACETAMINOPHEN 325 MG TABLET. PO SCH (21:16)
[2019-02-23] MEDS: INSULIN GLARGINE 300 UNITS/3 ML INSULN.PEN. SQ SCH (21:17)
[2019-02-23] MEDS: HEPARIN for SUB-Q USE 5,000 UNIT/ML VIAL. SQ SCH (21:18)
[2019-02-23 23:00] VITALS: BP 135/53
[2019-02-24 02:59] VITALS: BP 133/69
[2019-02-24 04:43] LABS: BASO % 0 % (0-3); EOS # 0.1 x10^3/uL (0.0-0.7); EOS % 1 % (0-3); HEMATOCRIT 35.2 % (39.0-53.0); HEMOGLOBIN 11.7 g/dL (13.0-17.5); LYMPH # 1.3 x10^3/uL (1.0-4.8); LYMPH % 11 % (24-48); MEAN CORPUSCULAR HEMOGLOBIN 32 pg (25-35); MEAN CORPUSCULAR HGB CONC 33 g/dL (31-37); MEAN CORPUSCULAR VOLUME 95 fL (79-100); MONO % 8 % (0-9); NEUT # 10.2 x10^3uL (1.8-7.7); NEUT % 81 % (31-73); PLATELET COUNT 247 x10^3/uL (140-400); RED BLOOD COUNT 3.71 x10^6/uL (4.30-5.70); RED CELL DISTRIBUTION WIDTH 12.9 % (11.5-14.5); WHITE BLOOD COUNT 12.6 x10^3/uL (4.0-11.0)
[2019-02-24 05:06] LABS: ALBUMIN 3.2 g/dL (3.4-5.0); ALBUMIN/GLOBULIN RATIO 0.9 (1.0-1.7); CALCIUM 8.8 mg/dL (8.5-10.1); CREATININE 0.9 mg/dL (0.7-1.3); DIRECT BILIRUBIN 0.1 mg/dL (0.0-0.2); GFR 80.4; POTASSIUM 4.5 mmol/L (3.5-5.1); TOTAL BILIRUBIN 0.4 mg/dL (0.2-1.0); TOTAL PROTEIN 6.8 g/dL (6.4-8.2)
[2019-02-24] MEDS: HEPARIN for SUB-Q USE 5,000 UNIT/ML VIAL. SQ SCH ×3 (06:05→22:20)
[2019-02-24 07:00] VITALS: BP 154/62
[2019-02-24] MEDS: INSULIN LISPRO 300 UNITS/3 ML INSULN.PEN. SQ SCH ×5 (07:23→17:23)
[2019-02-24] MEDS: ASPIRIN CHEWABLE 81 MG TABLET. PO SCH (08:02)
[2019-02-24] MEDS: FERROUS SULFATE 325 MG TABLET. PO SCH ×3 (08:02→20:33)
[2019-02-24] MEDS: OMEGA-3 FATTY ACIDS/FISH OIL 1,000 MG CAPSULE. PO SCH (08:03)
[2019-02-24] MEDS: LISINOPRIL 20 MG TABLET PO SCH (08:04)
[2019-02-24] MEDS: SENNOSIDES/DOCUSATE 8.6/50MG TABLET. PO SCH ×2 (08:05→20:32)
[2019-02-24] MEDS: CHOLECALCIFEROL (VITAMIN D3) 1,000 UNIT TABLET PO SCH (08:05)
[2019-02-24] MEDS: METOPROLOL SUCC 24HR ER 100 MG TAB.ER.24H. PO SCH (08:05)
[2019-02-24] MEDS: oxyCODONE/APAP 7.5/325 1 TAB TABLET PO PRN ×2 (08:06→17:40)
--- NOTE | 2019-02-24 08:07 | RAD ---
Pelvis with both hips, 3 views, 02/23/2019: HISTORY: Chronic hip pain The bony structures are demineralized. The hip joint spaces are well-maintained. There is mild marginal spurring at both hip joints. No fracture or dislocation is identified. Surgical clips are present in the lower pelvis bilaterally. A radiopaque surgical implant is evident in the lower lumbar spine. IMPRESSION: 1. Demineralization. 2. Mild spurring at both hip joints. 3. No acute bony abnormality is detected. Electronically signed by: Tacho Meehan MD (02/24/2019 8:04 AM) [facility]
[2019-02-24] MEDS: INSULIN GLARGINE 300 UNITS/3 ML INSULN.PEN. SQ SCH ×2 (08:17→20:42)
[2019-02-24] MEDS: GABAPENTIN 300 MG CAPSULE. PO SCH ×2 (08:19→20:33)
[2019-02-24 11:00] VITALS: BP 112/51
--- NOTE | 2019-02-24 14:43 | PDOC2 ---
SHANON HESTER [employer] 02/24/19 1443: CONSULT Date of Consult Date of Consult DATE: 02/24/19 TIME: 14:08 Reason for Consult Reason for Consult: Bilateral hip pain Referring Physician Referring Physician: Dr Stoll Identification/Chief Complaint Chief Complaint Bilater hip pain for approximately 3 weeks, with weakness in feet and hands that correspond to increased blood sugar levels. Source Source: Chart review, Patient History of Present Illness Reason for Visit: Three week history of pain in bilateral hips with associated weakness and numbness in feet causing the patient to fall repeatedly over this time. Past Medical History Cardiovascular: CAD, HTN Pulmonary: No pertinent hx GI: No pertinent hx Heme/Onc: Other Musculoskeletal: low back pain Endocrine: Diabetes Past Surgical History Past Surgical History: Other, No pertinent history Family History Family History: No Significant, Hypertension Social History No ALCOHOL: none Drugs: None Lives: with Family Current Problem List Problem List Problems Medical Problems: (1) Hyperglycemia Status: Acute (2) Hyponatremia Status: Acute Current Medications Current Medications Current Medications Fentanyl Citrate (Fentanyl 2ml Vial) 25 mcg 1X ONCE IV Last administered on at 14:12; Start 02/23/19 at 13:30; Stop 02/23/19 at 13:31; Status DC Ondansetron HCl (Zofran) 4 mg 1X ONCE IV Last administered on 02/23/19at 14:11 ; Start 02/23/19 at 13:30; Stop 02/23/19 at 13:31; Status DC Sodium Chloride 1,000 ml @ 1,000 mls/hr 1X ONCE IV Last administered on at 14:30; Start 02/23/19 at 14:30; Stop 02/23/19 at 15:29; Status DC Iohexol (Omnipaque 300 Mg/ml) 75 ml 1X ONCE IV ; Start 02/23/19 at 15:00; Stop 02/23/19 at 15:01; Status DC Info (CONTRAST GIVEN -- Rx MONITORING) 1 each PRN DAILY PRN MC SEE COMMENTS; Start 02/23/19 at 15:00; Stop 02/25/19 at 14:59 Acetaminophen/ Hydrocodone Bitart (Lortab 5/325) 1 tab 1X ONCE PO Last administered on 02/23/19at 15:59; Start 02/23/19 at 15:45; Stop 02/23/19 at 15:46 ; Status DC Ondansetron HCl (Zofran) 4 mg PRN Q8HRS PRN IV NAUSEA/VOMITING; Start 02/23/19 at 16:15; Stop 02/24/19 at 16:14 Fentanyl Citrate (Fentanyl 2ml Vial) 50 mcg PRN Q1HR PRN IV PAIN Last administered on 02/23/19at 18:12; Start 02/23/19 at 16:15; Stop 02/24/19 at 16:14 Acetaminophen (Tylenol) 650 mg PRN Q4HRS PRN PO FEVER; Start 02/23/19 at 16:15 ; Stop 02/24/19 at 16:14 Potassium Chloride/Sodium Chloride 1,000 ml @ 100 mls/hr Q10H IV Last administered on 02/24/19at 07:20; Start 02/23/19 at 20:30 Al Hydroxide/Mg Hydroxide (Mylanta Plus Xs) 30 ml PRN Q3HRS PRN PO HEARTBURN / GAS; Start 02/23/19 at 20:00 Senna/Docusate Sodium (Senna Plus) 1 tab BID PO Last administered on 02/24/19 08:05; Start 02/23/19 at 21:00 Magnesium Hydroxide (Milk Of Magnesia) 2,400 mg PRN Q12HR PRN PO CONSTIPATION; Start 02/23/19 at 20:00 Heparin Sodium (Porcine) (Heparin Sodium) 5,000 unit Q8HRS SQ Last administered on 02/24/19at 14:00; Start 02/23/19 at 22:00 Acetaminophen (Tylenol) 325 mg HS PO Last administered on 02/23/19at 21:16; Start 02/23/19 at 21:00 Aspirin (Children'S Aspirin) 81 mg DAILY08 PO Last administered on 02/24/19 08 :02; Start 02/24/19 at 08:00 Vitamin D (Vitamin D3) 1,000 unit DAILY PO Last administered on 02/24/19 08:05 ; Start 02/24/19 at 09:00 Ferrous Sulfate (Feosol) 325 mg TID PO Last administered on 02/24/19at 13:59; Start 02/23/19 at 21:00 Insulin Human Lispro (HumaLOG) 15 units BIDWMEALS SQ Last administered on 4/16/ 19at 08:16; Start 02/24/19 at 08:00 Lisinopril (Prinivil) 40 mg DAILY PO Last administered on 02/24/19at 08:04; Start 02/24/19 at 09:00 Metoprolol Succinate (Toprol Xl) 100 mg DAILY PO Last administered on at 08:05; Start 02/24/19 at 09:00 Oxycodone/ Acetaminophen (Percocet 7.5/ 325) 1 tab PRN Q6HRS PRN PO PAIN Last administered on 02/24/19at 08:06; Start 02/23/19 at 20:00 Gabapentin (Neurontin) 600 mg BID PO Last administered on 02/24/19at 08:19; Start 02/23/19 at 21:00 Metformin HCl (Glucophage) 1,000 mg BIDWMEALS PO ; Start 02/25/19 at 17:00 Insulin Glargine (Lantus) 18 units BID SQ Last administered on 02/24/19at 08:17 ; Start 02/23/19 at 21:00 Fish Oil (Fish Oil) 1,000 mg DAILY PO Last administered on 02/24/19at 08:03; Start 02/24/19 at 09:00 Insulin Human Lispro (HumaLOG) 0-7 UNITS TIDWMEALS SQ ; Start 02/24/19 at 08:00 Dextrose (Dextrose 50%-Water Syringe) 12.5 gm PRN Q15MIN PRN IV SEE COMMENTS; Start 02/23/19 at 20:00 Active Scripts Active Reported Tylenol (Acetaminophen) 325 Mg Tablet 1 Tab PO HS Vitamin D3 (Cholecalciferol (Vitamin D3)) 1,000 Unit Tablet 1 Tab PO DAILY Fish Oil 1,000 mg Softgel ([place]-3S/Dha/Epa/Fish Oil) 1 Each Capsule 1 Each PO DAILY Humulin N (Nph, Human Insulin Isophane) 100 Unit/1 Ml Vial 18 Unit SQ [id number] Humulin R (Insulin Regular, Human) 100 Unit/1 Ml Vial 15 Unit IJ [id number] Oxycodon-Acetaminophen 7.5-325 (Oxycodone Hcl/Acetaminophen) 1 Each Tablet 7.5- 325 Mg PO PRN Q6HRS PRN Furosemide 20 Mg Tablet 20 Mg PO DAILY Ferrous Sulfate 325 Mg Tablet 325 Mg PO TID Gabapentin 600 Mg Tablet 600 Mg PO BID Aspirin 81 Mg Tab.chew 81 Mg PO DAILY08 last dose this amnext dose tomorrow am Metoprolol Succinate ( Xl ) (Metoprolol Succinate) 100 Mg Tab.er.24h 100 Mg PO DAILY last dose this am next dose tomorrow am Metformin Hcl 500 Mg Tablet 1,000 Mg PO BIDWMEALS need to take with supper Lisinopril 40 Mg Tablet 40 Mg PO DAILY last dose this am next dose in am Allergies Allergies: Coded Allergies: sitagliptin (Verified Allergy, Severe, Anaphylaxis, 10/07/14) NSAIDS (Non-Steroidal Anti-Inflamma (Verified Allergy, Intermediate, 10/08) Physical Exam General: Alert, Oriented X3, Cooperative, No acute distress Extremities: No clubbing, No edema (distal pulses +1) Vitals VITALS Vital Signs Date Time Temp Pulse Resp B/P (MAP) Pulse Ox O2 Delivery O2 Flow Rate FiO2 02/24/19 11:00 98.6 77 18 112/51 (71) 94 Room Air 98.6 Labs Labs Laboratory Tests Test 02/23/19 13:24 02/23/19 13:33 02/23/19 15:25 02/23/19 20:43 Glucose (Fingerstick) 246 mg/dL (70-99) 195 mg/dL (70-99) White Blood Count 16.1 x10^3/uL (4.0-11.0) Red Blood Count 4.00 x10^6/uL (4.30-5.70) Hemoglobin 12.8 g/dL (13.0-17.5) Hematocrit 37.6 % (39.0-53.0) Mean Corpuscular Volume 94 fL (79-100) Mean Corpuscular Hemoglobin 32 pg (25-35) Mean Corpuscular Hemoglobin Concent 34 g/dL (31-37) Red Cell Distribution Width 12.9 % (11.5-14.5) Platelet Count 272 x10^3/uL (140-400) Neutrophils (%) (Auto) 89 % (31-73) Lymphocytes (%) (Auto) 5 % (24-48) Monocytes (%) (Auto) 5 % (0-9) Eosinophils (%) (Auto) 0 % (0-3) Basophils (%) (Auto) 0 % (0-3) Neutrophils # (Auto) 14.4 x10^3uL (1.8-7.7) Lymphocytes # (Auto) 0.8 x10^3/uL (1.0-4.8) Monocytes # (Auto) 0.8 x10^3/uL (0.0-1.1) Eosinophils # (Auto) 0.0 x10^3/uL (0.0-0.7) Basophils # (Auto) 0.1 x10^3/uL (0.0-0.2) Segmented Neutrophils % 84 % (35-66) Band Neutrophils % 4 % (0-9) Lymphocytes % 5 % (24-48) Monocytes % 7 % (0-10) Platelet Estimate Adequate (ADEQUATE) Sodium Level 120 mmol/L (136-145) Potassium Level 4.5 mmol/L (3.5-5.1) Chloride Level 83 mmol/L (98-107) Carbon Dioxide Level 23 mmol/L (21-32) Anion Gap 14 (6-14) Blood Urea Nitrogen 19 mg/dL (8-26) Creatinine 1.1 mg/dL (0.7-1.3) Estimated GFR (Cockcroft-Gault) 63.8 BUN/Creatinine Ratio 17 (6-20) Glucose Level 237 mg/dL (70-99) Calcium Level 9.5 mg/dL (8.5-10.1) Total Bilirubin 0.5 mg/dL (0.2-1.0) Aspartate Amino Transf (AST/SGOT) 11 U/L (15-37) Alanine Aminotransferase (ALT/SGPT) 24 U/L (16-63) Alkaline Phosphatase 180 U/L (46-116) Troponin I Quantitative < 0.017 ng/mL (0.000-0.055) Total Protein 7.5 g/dL (6.4-8.2) Albumin 3.6 g/dL (3.4-5.0) Albumin/Globulin Ratio 0.9 (1.0-1.7) Lipase 135 U/L (73-393) Thyroid Stimulating Hormone (TSH) 1.023 uIU/mL (0.358-3.74) Urine Collection Type Unknown Urine Color Yellow Urine Clarity Clear Urine pH 6.5 Urine Specific [place] >=1.030 Urine Protein Negative mg/dL (NEG-TRACE) Urine Glucose (UA) Negative mg/dL (NEG) Urine Ketones (Stick) Negative mg/dL (NEG) Urine Blood Negative (NEG) Urine Nitrite Negative (NEG) Urine Bilirubin Negative (NEG) Urine Urobilinogen Dipstick 0.2 mg/dL (0.2 mg/dL) Urine Leukocyte Esterase Negative (NEG) Urine RBC 0 /HPF (0-2) Urine WBC 0 /HPF (0-4) Urine Squamous Epithelial Cells Occ /LPF Urine Bacteria 0 /HPF (0-FEW) Urine Hyaline Casts Occasional /HPF Urine Mucus Slight /LPF Test 02/23/19 20:50 02/24/19 04:15 02/24/19 07:18 02/24/19 11:38 Urine Random Sodium 107 mmol/L (Not Estab.) White Blood Count 12.6 x10^3/uL (4.0-11.0) Red Blood Count 3.71 x10^6/uL (4.30-5.70) Hemoglobin 11.7 g/dL (13.0-17.5) Hematocrit 35.2 % (39.0-53.0) Mean Corpuscular Volume 95 fL (79-100) Mean Corpuscular Hemoglobin 32 pg (25-35) Mean Corpuscular Hemoglobin Concent 33 g/dL (31-37) Red Cell Distribution Width 12.9 % (11.5-14.5) Platelet Count 247 x10^3/uL (140-400) Neutrophils (%) (Auto) 81 % (31-73) Lymphocytes (%) (Auto) 11 % (24-48) Monocytes (%) (Auto) 8 % (0-9) Eosinophils (%) (Auto) 1 % (0-3) Basophils (%) (Auto) 0 % (0-3) Neutrophils # (Auto) 10.2 x10^3uL (1.8-7.7) Lymphocytes # (Auto) 1.3 x10^3/uL (1.0-4.8) Monocytes # (Auto) 1.0 x10^3/uL (0.0-1.1) Eosinophils # (Auto) 0.1 x10^3/uL (0.0-0.7) Basophils # (Auto) 0.0 x10^3/uL (0.0-0.2) Sodium Level 125 mmol/L (136-145) Potassium Level 4.5 mmol/L (3.5-5.1) Chloride Level 88 mmol/L (98-107) Carbon Dioxide Level 28 mmol/L (21-32) Anion Gap 9 (6-14) Blood Urea Nitrogen 14 mg/dL (8-26) Creatinine 0.9 mg/dL (0.7-1.3) Estimated GFR (Cockcroft-Gault) 80.4 BUN/Creatinine Ratio 16 (6-20) Glucose Level 170 mg/dL (70-99) Calcium Level 8.8 mg/dL (8.5-10.1) Total Bilirubin 0.4 mg/dL (0.2-1.0) Direct Bilirubin 0.1 mg/dL (0.0-0.2) Aspartate Amino Transf (AST/SGOT) 11 U/L (15-37) Alanine Aminotransferase (ALT/SGPT) 22 U/L (16-63) Alkaline Phosphatase 167 U/L (46-116) Total Protein 6.8 g/dL (6.4-8.2) Albumin 3.2 g/dL (3.4-5.0) Albumin/Globulin Ratio 0.9 (1.0-1.7) Cortisol AM Sample 18.1 ug/dL (4.3-22.4) Glucose (Fingerstick) 149 mg/dL (70-99) 146 mg/dL (70-99) Laboratory Tests Test 02/23/19 15:25 02/23/19 20:43 02/23/19 20:50 02/24/19 04:15 Urine Collection Type Unknown Urine Color Yellow Urine Clarity Clear Urine pH 6.5 Urine Specific [place] >=1.030 Urine Protein Negative mg/dL (NEG-TRACE) Urine Glucose (UA) Negative mg/dL (NEG) Urine Ketones (Stick) Negative mg/dL (NEG) Urine Blood Negative (NEG) Urine Nitrite Negative (NEG) Urine Bilirubin Negative (NEG) Urine Urobilinogen Dipstick 0.2 mg/dL (0.2 mg/dL) Urine Leukocyte Esterase Negative (NEG) Urine RBC 0 /HPF (0-2) Urine WBC 0 /HPF (0-4) Urine Squamous Epithelial Cells Occ /LPF Urine Bacteria 0 /HPF (0-FEW) Urine Hyaline Casts Occasional /HPF Urine Mucus Slight /LPF Glucose (Fingerstick) 195 mg/dL (70-99) Urine Random Sodium 107 mmol/L (Not Estab.) White Blood Count 12.6 x10^3/uL (4.0-11.0) Red Blood Count 3.71 x10^6/uL (4.30-5.70) Hemoglobin 11.7 g/dL (13.0-17.5) Hematocrit 35.2 % (39.0-53.0) Mean Corpuscular Volume 95 fL (79-100) Mean Corpuscular Hemoglobin 32 pg (25-35) Mean Corpuscular Hemoglobin Concent 33 g/dL (31-37) Red Cell Distribution Width 12.9 % (11.5-14.5) Platelet Count 247 x10^3/uL (140-400) Neutrophils (%) (Auto) 81 % (31-73) Lymphocytes (%) (Auto) 11 % (24-48) Monocytes (%) (Auto) 8 % (0-9) Eosinophils (%) (Auto) 1 % (0-3) Basophils (%) (Auto) 0 % (0-3) Neutrophils # (Auto) 10.2 x10^3uL (1.8-7.7) Lymphocytes # (Auto) 1.3 x10^3/uL (1.0-4.8) Monocytes # (Auto) 1.0 x10^3/uL (0.0-1.1) Eosinophils # (Auto) 0.1 x10^3/uL (0.0-0.7) Basophils # (Auto) 0.0 x10^3/uL (0.0-0.2) Sodium Level 125 mmol/L (136-145) Potassium Level 4.5 mmol/L (3.5-5.1) Chloride Level 88 mmol/L (98-107) Carbon Dioxide Level 28 mmol/L (21-32) Anion Gap 9 (6-14) Blood Urea Nitrogen 14 mg/dL (8-26) Creatinine 0.9 mg/dL (0.7-1.3) Estimated GFR (Cockcroft-Gault) 80.4 BUN/Creatinine Ratio 16 (6-20) Glucose Level 170 mg/dL (70-99) Calcium Level 8.8 mg/dL (8.5-10.1) Total Bilirubin 0.4 mg/dL (0.2-1.0) Direct Bilirubin 0.1 mg/dL (0.0-0.2) Aspartate Amino Transf (AST/SGOT) 11 U/L (15-37) Alanine Aminotransferase (ALT/SGPT) 22 U/L (16-63) Alkaline Phosphatase 167 U/L (46-116) Total Protein 6.8 g/dL (6.4-8.2) Albumin 3.2 g/dL (3.4-5.0) Albumin/Globulin Ratio 0.9 (1.0-1.7) Cortisol AM Sample 18.1 ug/dL (4.3-22.4) Test 02/24/19 07:18 02/24/19 11:38 Glucose (Fingerstick) 149 mg/dL (70-99) 146 mg/dL (70-99) Images Images xrays were reviewed showing demineralization with mild spurring and degeneration within bilateral hips. Assessment/Plan Assessment/Plan Recent weakness that corresponded with recent elevation in blood sugar levels. Hamstring tightness bilaterally complaint of numbness in bilateral feet may be related to neuropathy. On exam of the hips no pain on ROM to indicate severe arthritic pain. PT has been ordered and recommend hamstring stretching. Control of BS and treatment for neuropathy. FELIPE CARTAGENA II, MD 02/25/19 1149: CONSULT Assessment/Plan Assessment/Plan Patient was seen and examined by myself. I reviewed the imaging performed a history and physical examination and formulated the treatment plan. He has participated in physical therapy and feels that it was helpful. I recommend continued conservative therapies, consider consulting physiatry at some point as well. SHANON HESTER APRN Feb 24, 2019 14:43 FELIPE CARTAGENA II, MD Feb 25, 2019 11:49
[2019-02-24 15:00] VITALS: BP 129/60
--- NOTE | 2019-02-24 15:50 | PDOC ---
PROGRESS NOTES Chief Complaint Chief Complaint ASSESSMENT: Hyponatremia, resolving Hypokalemia, resolved Vomiting, resolved Leukocytosis resolving BL Hip pain secondary to demineralization with mild spurring and degeneration within bilateral hips seen on xray CAD DM Obesity PLAN: continue IVF follow Na, improved to 125 check serum osmolarity and urine Na TSH and cortisol pending replaced K elevated alk phos secondary to bone demineralization hold home lasix ortho consulted given hip pain PT consult continue home meds for DM, CAD bmp in AM Vitals Vitals Vital Signs Date Time Temp Pulse Resp B/P (MAP) Pulse Ox O2 Delivery O2 Flow Rate FiO2 02/24/19 11:00 98.6 77 18 112/51 (71) 94 Room Air 98.6 Physical Exam General: Alert, Oriented X3, Cooperative, No acute distress Lungs: Clear Extremities: No clubbing, No edema (distal pulses +1) Labs LABS Laboratory Tests Test 02/23/19 20:43 02/23/19 20:50 02/24/19 04:15 02/24/19 07:18 Glucose (Fingerstick) 195 mg/dL (70-99) 149 mg/dL (70-99) Urine Random Sodium 107 mmol/L (Not Estab.) White Blood Count 12.6 x10^3/uL (4.0-11.0) Red Blood Count 3.71 x10^6/uL (4.30-5.70) Hemoglobin 11.7 g/dL (13.0-17.5) Hematocrit 35.2 % (39.0-53.0) Mean Corpuscular Volume 95 fL (79-100) Mean Corpuscular Hemoglobin 32 pg (25-35) Mean Corpuscular Hemoglobin Concent 33 g/dL (31-37) Red Cell Distribution Width 12.9 % (11.5-14.5) Platelet Count 247 x10^3/uL (140-400) Neutrophils (%) (Auto) 81 % (31-73) Lymphocytes (%) (Auto) 11 % (24-48) Monocytes (%) (Auto) 8 % (0-9) Eosinophils (%) (Auto) 1 % (0-3) Basophils (%) (Auto) 0 % (0-3) Neutrophils # (Auto) 10.2 x10^3uL (1.8-7.7) Lymphocytes # (Auto) 1.3 x10^3/uL (1.0-4.8) Monocytes # (Auto) 1.0 x10^3/uL (0.0-1.1) Eosinophils # (Auto) 0.1 x10^3/uL (0.0-0.7) Basophils # (Auto) 0.0 x10^3/uL (0.0-0.2) Sodium Level 125 mmol/L (136-145) Potassium Level 4.5 mmol/L (3.5-5.1) Chloride Level 88 mmol/L (98-107) Carbon Dioxide Level 28 mmol/L (21-32) Anion Gap 9 (6-14) Blood Urea Nitrogen 14 mg/dL (8-26) Creatinine 0.9 mg/dL (0.7-1.3) Estimated GFR (Cockcroft-Gault) 80.4 BUN/Creatinine Ratio 16 (6-20) Glucose Level 170 mg/dL (70-99) Calcium Level 8.8 mg/dL (8.5-10.1) Total Bilirubin 0.4 mg/dL (0.2-1.0) Direct Bilirubin 0.1 mg/dL (0.0-0.2) Aspartate Amino Transf (AST/SGOT) 11 U/L (15-37) Alanine Aminotransferase (ALT/SGPT) 22 U/L (16-63) Alkaline Phosphatase 167 U/L (46-116) Total Protein 6.8 g/dL (6.4-8.2) Albumin 3.2 g/dL (3.4-5.0) Albumin/Globulin Ratio 0.9 (1.0-1.7) Cortisol AM Sample 18.1 ug/dL (4.3-22.4) Test 02/24/19 11:38 02/24/19 14:08 Glucose (Fingerstick) 146 mg/dL (70-99) 176 mg/dL (70-99) Assessment and Plan Assessmemt and Plan Problems Medical Problems: (1) Hyperglycemia Status: Acute (2) Hyponatremia Status: Acute Comment Review of Relevant I have reviewed the following items sy (where applicable) has been applied. Labs Laboratory Tests Test 02/23/19 13:24 02/23/19 13:33 02/23/19 15:25 02/23/19 20:43 Glucose (Fingerstick) 246 mg/dL (70-99) 195 mg/dL (70-99) White Blood Count 16.1 x10^3/uL (4.0-11.0) Red Blood Count 4.00 x10^6/uL (4.30-5.70) Hemoglobin 12.8 g/dL (13.0-17.5) Hematocrit 37.6 % (39.0-53.0) Mean Corpuscular Volume 94 fL (79-100) Mean Corpuscular Hemoglobin 32 pg (25-35) Mean Corpuscular Hemoglobin Concent 34 g/dL (31-37) Red Cell Distribution Width 12.9 % (11.5-14.5) Platelet Count 272 x10^3/uL (140-400) Neutrophils (%) (Auto) 89 % (31-73) Lymphocytes (%) (Auto) 5 % (24-48) Monocytes (%) (Auto) 5 % (0-9) Eosinophils (%) (Auto) 0 % (0-3) Basophils (%) (Auto) 0 % (0-3) Neutrophils # (Auto) 14.4 x10^3uL (1.8-7.7) Lymphocytes # (Auto) 0.8 x10^3/uL (1.0-4.8) Monocytes # (Auto) 0.8 x10^3/uL (0.0-1.1) Eosinophils # (Auto) 0.0 x10^3/uL (0.0-0.7) Basophils # (Auto) 0.1 x10^3/uL (0.0-0.2) Segmented Neutrophils % 84 % (35-66) Band Neutrophils % 4 % (0-9) Lymphocytes % 5 % (24-48) Monocytes % 7 % (0-10) Platelet Estimate Adequate (ADEQUATE) Sodium Level 120 mmol/L (136-145) Potassium Level 4.5 mmol/L (3.5-5.1) Chloride Level 83 mmol/L (98-107) Carbon Dioxide Level 23 mmol/L (21-32) Anion Gap 14 (6-14) Blood Urea Nitrogen 19 mg/dL (8-26) Creatinine 1.1 mg/dL (0.7-1.3) Estimated GFR (Cockcroft-Gault) 63.8 BUN/Creatinine Ratio 17 (6-20) Glucose Level 237 mg/dL (70-99) Calcium Level 9.5 mg/dL (8.5-10.1) Total Bilirubin 0.5 mg/dL (0.2-1.0) Aspartate Amino Transf (AST/SGOT) 11 U/L (15-37) Alanine Aminotransferase (ALT/SGPT) 24 U/L (16-63) Alkaline Phosphatase 180 U/L (46-116) Troponin I Quantitative < 0.017 ng/mL (0.000-0.055) Total Protein 7.5 g/dL (6.4-8.2) Albumin 3.6 g/dL (3.4-5.0) Albumin/Globulin Ratio 0.9 (1.0-1.7) Lipase 135 U/L (73-393) Thyroid Stimulating Hormone (TSH) 1.023 uIU/mL (0.358-3.74) Urine Collection Type Unknown Urine Color Yellow Urine Clarity Clear Urine pH 6.5 Urine Specific [place] >=1.030 Urine Protein Negative mg/dL (NEG-TRACE) Urine Glucose (UA) Negative mg/dL (NEG) Urine Ketones (Stick) Negative mg/dL (NEG) Urine Blood Negative (NEG) Urine Nitrite Negative (NEG) Urine Bilirubin Negative (NEG) Urine Urobilinogen Dipstick 0.2 mg/dL (0.2 mg/dL) Urine Leukocyte Esterase Negative (NEG) Urine RBC 0 /HPF (0-2) Urine WBC 0 /HPF (0-4) Urine Squamous Epithelial Cells Occ /LPF Urine Bacteria 0 /HPF (0-FEW) Urine Hyaline Casts Occasional /HPF Urine Mucus Slight /LPF Test 02/23/19 20:50 02/24/19 04:15 02/24/19 07:18 02/24/19 11:38 Urine Random Sodium 107 mmol/L (Not Estab.) White Blood Count 12.6 x10^3/uL (4.0-11.0) Red Blood Count 3.71 x10^6/uL (4.30-5.70) Hemoglobin 11.7 g/dL (13.0-17.5) Hematocrit 35.2 % (39.0-53.0) Mean Corpuscular Volume 95 fL (79-100) Mean Corpuscular Hemoglobin 32 pg (25-35) Mean Corpuscular Hemoglobin Concent 33 g/dL (31-37) Red Cell Distribution Width 12.9 % (11.5-14.5) Platelet Count 247 x10^3/uL (140-400) Neutrophils (%) (Auto) 81 % (31-73) Lymphocytes (%) (Auto) 11 % (24-48) Monocytes (%) (Auto) 8 % (0-9) Eosinophils (%) (Auto) 1 % (0-3) Basophils (%) (Auto) 0 % (0-3) Neutrophils # (Auto) 10.2 x10^3uL (1.8-7.7) Lymphocytes # (Auto) 1.3 x10^3/uL (1.0-4.8) Monocytes # (Auto) 1.0 x10^3/uL (0.0-1.1) Eosinophils # (Auto) 0.1 x10^3/uL (0.0-0.7) Basophils # (Auto) 0.0 x10^3/uL (0.0-0.2) Sodium Level 125 mmol/L (136-145) Potassium Level 4.5 mmol/L (3.5-5.1) Chloride Level 88 mmol/L (98-107) Carbon Dioxide Level 28 mmol/L (21-32) Anion Gap 9 (6-14) Blood Urea Nitrogen 14 mg/dL (8-26) Creatinine 0.9 mg/dL (0.7-1.3) Estimated GFR (Cockcroft-Gault) 80.4 BUN/Creatinine Ratio 16 (6-20) Glucose Level 170 mg/dL (70-99) Calcium Level 8.8 mg/dL (8.5-10.1) Total Bilirubin 0.4 mg/dL (0.2-1.0) Direct Bilirubin 0.1 mg/dL (0.0-0.2) Aspartate Amino Transf (AST/SGOT) 11 U/L (15-37) Alanine Aminotransferase (ALT/SGPT) 22 U/L (16-63) Alkaline Phosphatase 167 U/L (46-116) Total Protein 6.8 g/dL (6.4-8.2) Albumin 3.2 g/dL (3.4-5.0) Albumin/Globulin Ratio 0.9 (1.0-1.7) Cortisol AM Sample 18.1 ug/dL (4.3-22.4) Glucose (Fingerstick) 149 mg/dL (70-99) 146 mg/dL (70-99) Test 02/24/19 14:08 Glucose (Fingerstick) 176 mg/dL (70-99) Laboratory Tests Test 02/23/19 20:43 02/23/19 20:50 02/24/19 04:15 02/24/19 07:18 Glucose (Fingerstick) 195 mg/dL (70-99) 149 mg/dL (70-99) Urine Random Sodium 107 mmol/L (Not Estab.) White Blood Count 12.6 x10^3/uL (4.0-11.0) Red Blood Count 3.71 x10^6/uL (4.30-5.70) Hemoglobin 11.7 g/dL (13.0-17.5) Hematocrit 35.2 % (39.0-53.0) Mean Corpuscular Volume 95 fL (79-100) Mean Corpuscular Hemoglobin 32 pg (25-35) Mean Corpuscular Hemoglobin Concent 33 g/dL (31-37) Red Cell Distribution Width 12.9 % (11.5-14.5) Platelet Count 247 x10^3/uL (140-400) Neutrophils (%) (Auto) 81 % (31-73) Lymphocytes (%) (Auto) 11 % (24-48) Monocytes (%) (Auto) 8 % (0-9) Eosinophils (%) (Auto) 1 % (0-3) Basophils (%) (Auto) 0 % (0-3) Neutrophils # (Auto) 10.2 x10^3uL (1.8-7.7) Lymphocytes # (Auto) 1.3 x10^3/uL (1.0-4.8) Monocytes # (Auto) 1.0 x10^3/uL (0.0-1.1) Eosinophils # (Auto) 0.1 x10^3/uL (0.0-0.7) Basophils # (Auto) 0.0 x10^3/uL (0.0-0.2) Sodium Level 125 mmol/L (136-145) Potassium Level 4.5 mmol/L (3.5-5.1) Chloride Level 88 mmol/L (98-107) Carbon Dioxide Level 28 mmol/L (21-32) Anion Gap 9 (6-14) Blood Urea Nitrogen 14 mg/dL (8-26) Creatinine 0.9 mg/dL (0.7-1.3) Estimated GFR (Cockcroft-Gault) 80.4 BUN/Creatinine Ratio 16 (6-20) Glucose Level 170 mg/dL (70-99) Calcium Level 8.8 mg/dL (8.5-10.1) Total Bilirubin 0.4 mg/dL (0.2-1.0) Direct Bilirubin 0.1 mg/dL (0.0-0.2) Aspartate Amino Transf (AST/SGOT) 11 U/L (15-37) Alanine Aminotransferase (ALT/SGPT) 22 U/L (16-63) Alkaline Phosphatase 167 U/L (46-116) Total Protein 6.8 g/dL (6.4-8.2) Albumin 3.2 g/dL (3.4-5.0) Albumin/Globulin Ratio 0.9 (1.0-1.7) Cortisol AM Sample 18.1 ug/dL (4.3-22.4) Test 02/24/19 11:38 02/24/19 14:08 Glucose (Fingerstick) 146 mg/dL (70-99) 176 mg/dL (70-99) Medications Current Medications Fentanyl Citrate (Fentanyl 2ml Vial) 25 mcg 1X ONCE IV Last administered on at 14:12; Start 02/23/19 at 13:30; Stop 02/23/19 at 13:31; Status DC Ondansetron HCl (Zofran) 4 mg 1X ONCE IV Last administered on 02/23/19at 14:11 ; Start 02/23/19 at 13:30; Stop 02/23/19 at 13:31; Status DC Sodium Chloride 1,000 ml @ 1,000 mls/hr 1X ONCE IV Last administered on at 14:30; Start 02/23/19 at 14:30; Stop 02/23/19 at 15:29; Status DC Iohexol (Omnipaque 300 Mg/ml) 75 ml 1X ONCE IV ; Start 02/23/19 at 15:00; Stop 02/23/19 at 15:01; Status DC Info (CONTRAST GIVEN -- Rx MONITORING) 1 each PRN DAILY PRN MC SEE COMMENTS; Start 02/23/19 at 15:00; Stop 02/25/19 at 14:59 Acetaminophen/ Hydrocodone Bitart (Lortab 5/325) 1 tab 1X ONCE PO Last administered on 02/23/19at 15:59; Start 02/23/19 at 15:45; Stop 02/23/19 at 15:46 ; Status DC Ondansetron HCl (Zofran) 4 mg PRN Q8HRS PRN IV NAUSEA/VOMITING; Start 02/23/19 at 16:15; Stop 02/24/19 at 16:14 Fentanyl Citrate (Fentanyl 2ml Vial) 50 mcg PRN Q1HR PRN IV PAIN Last administered on 02/23/19at 18:12; Start 02/23/19 at 16:15; Stop 02/24/19 at 16:14 Acetaminophen (Tylenol) 650 mg PRN Q4HRS PRN PO FEVER; Start 02/23/19 at 16:15 ; Stop 02/24/19 at 16:14 Potassium Chloride/Sodium Chloride 1,000 ml @ 100 mls/hr Q10H IV Last administered on 02/24/19at 07:20; Start 02/23/19 at 20:30 Al Hydroxide/Mg Hydroxide (Mylanta Plus Xs) 30 ml PRN Q3HRS PRN PO HEARTBURN / GAS; Start 02/23/19 at 20:00 Senna/Docusate Sodium (Senna Plus) 1 tab BID PO Last administered on 02/24/19at 08:05; Start 02/23/19 at 21:00 Magnesium Hydroxide (Milk Of Magnesia) 2,400 mg PRN Q12HR PRN PO CONSTIPATION; Start 02/23/19 at 20:00 Heparin Sodium (Porcine) (Heparin Sodium) 5,000 unit Q8HRS SQ Last administered on 02/24/19at 14:00; Start 02/23/19 at 22:00 Acetaminophen (Tylenol) 325 mg HS PO Last administered on 02/23/19at 21:16; Start 02/23/19 at 21:00 Aspirin (Children'S Aspirin) 81 mg DAILY08 PO Last administered on 02/24/19at 08 :02; Start 02/24/19 at 08:00 Vitamin D (Vitamin D3) 1,000 unit DAILY PO Last administered on 02/24/19at 08:05 ; Start 02/24/19 at 09:00 Ferrous Sulfate (Feosol) 325 mg TID PO Last administered on 02/24/19 13:59; Start 02/23/19 at 21:00 Insulin Human Lispro (HumaLOG) 15 units BIDWMEALS SQ Last administered on 08:16; Start 02/24/19 at 08:00 Lisinopril (Prinivil) 40 mg DAILY PO Last administered on 02/24/19at 08:04; Start 02/24/19 at 09:00 Metoprolol Succinate (Toprol Xl) 100 mg DAILY PO Last administered on 08:05; Start 02/24/19 at 09:00 Oxycodone/ Acetaminophen (Percocet 7.5/ 325) 1 tab PRN Q6HRS PRN PO PAIN Last administered on 02/24/19 08:06; Start 02/23/19 at 20:00 Gabapentin (Neurontin) 600 mg BID PO Last administered on 02/24/19at 08:19; Start 02/23/19 at 21:00 Metformin HCl (Glucophage) 1,000 mg BIDWMEALS PO ; Start 02/25/19 at 17:00 Insulin Glargine (Lantus) 18 units BID SQ Last administered on 02/24/19at 08:17 ; Start 02/23/19 at 21:00 Fish Oil (Fish Oil) 1,000 mg DAILY PO Last administered on 02/24/19at 08:03; Start 02/24/19 at 09:00 Insulin Human Lispro (HumaLOG) 0-7 UNITS TIDWMEALS SQ ; Start 02/24/19 at 08:00 Dextrose (Dextrose 50%-Water Syringe) 12.5 gm PRN Q15MIN PRN IV SEE COMMENTS; Start 02/23/19 at 20:00 Active Scripts Active Reported Tylenol (Acetaminophen) 325 Mg Tablet 1 Tab PO HS Vitamin D3 (Cholecalciferol (Vitamin D3)) 1,000 Unit Tablet 1 Tab PO DAILY Fish Oil 1,000 mg Softgel ([place]-3S/Dha/Epa/Fish Oil) 1 Each Capsule 1 Each PO DAILY Humulin N (Nph, Human Insulin Isophane) 100 Unit/1 Ml Vial 18 Unit SQ BID94 Humulin R (Insulin Regular, Human) 100 Unit/1 Ml Vial 15 Unit IJ BID94 Oxycodon-Acetaminophen 7.5-325 (Oxycodone Hcl/Acetaminophen) 1 Each Tablet 7.5- 325 Mg PO PRN Q6HRS PRN Furosemide 20 Mg Tablet 20 Mg PO DAILY Ferrous Sulfate 325 Mg Tablet 325 Mg PO TID Gabapentin 600 Mg Tablet 600 Mg PO BID Aspirin 81 Mg Tab.chew 81 Mg PO DAILY08 last dose this amnext dose tomorrow am Metoprolol Succinate ( Xl ) (Metoprolol Succinate) 100 Mg Tab.er.24h 100 Mg PO DAILY last dose this am next dose tomorrow am Metformin Hcl 500 Mg Tablet 1,000 Mg PO BIDWMEALS need to take with supper Lisinopril 40 Mg Tablet 40 Mg PO DAILY last dose this am next dose in am Vitals/I & O Vital Sign - Last 24 Hours 02/23/19 02/23/19 02/23/19 02/23/19 15:59 16:30 17:30 17:50 Temp 97.9 97.9 Pulse 76 74 81 Resp 20 17 17 18 B/P (MAP) 190/87 (121) Pulse Ox 98 98 97 94 O2 Delivery Room Air 02/23/19 02/23/19 02/23/19 02/23/19 18:12 18:42 19:00 23:00 Temp 97.9 99.2 97.9 99.2 Pulse 73 75 Resp 20 20 18 18 B/P (MAP) 137/61 (86) 135/53 (80) Pulse Ox 94 94 95 95 O2 Delivery Room Air Room Air Room Air 02/24/19 02/24/19 02/24/19 02/24/19 02:59 07:00 08:00 08:04 Temp 98.2 98.8 98.2 98.8 Pulse 75 84 84 Resp 18 18 B/P (MAP) 133/69 (90) 154/62 (92) 154/62 Pulse Ox 94 96 O2 Delivery Room Air Room Air Room Air 02/24/19 02/24/19 02/24/19 02/24/19 08:05 08:06 09:06 11:00 Temp 98.6 98.6 Pulse 84 77 Resp 18 20 18 B/P (MAP) 154/62 112/51 (71) Pulse Ox 96 94 O2 Delivery Room Air Room Air Room Air Intake and Output 02/23/19 02/23/19 02/24/19 15:00 23:00 07:00 Intake Total 480 ml Output Total 1450 ml Balance -970 ml MICHAEL MATHEWS MD Feb 24, 2019 15:50
[2019-02-24] MEDS: tiZANidine 4 MG TABLET. PO PRN (18:28)
[2019-02-24] MEDS: predniSONE 10 MG TABLET PO SCH (18:28)
[2019-02-24] MEDS: PANTOPRAZOLE 40 MG TABLET.DR. PO SCH (18:28)
[2019-02-24 19:00] VITALS: BP 133/57
[2019-02-24] MEDS: ACETAMINOPHEN 325 MG TABLET. PO SCH (20:33)
[2019-02-24 23:00] VITALS: BP 132/62
[2019-02-24] MEDS ORDERED: guaiFENesin DM 600/30MG 1 TAB TAB.ER.12H PO PRN (23:00)
[2019-02-25 03:00] VITALS: BP 167/70
[2019-02-25] MEDS: HEPARIN for SUB-Q USE 5,000 UNIT/ML VIAL. SQ SCH ×3 (05:59→20:56)
[2019-02-25 07:00] VITALS: BP 175/80
[2019-02-25 07:42] LABS: CALCIUM 9.1 mg/dL (8.5-10.1); CREATININE 0.8 mg/dL (0.7-1.3); GFR 92.1; POTASSIUM 4.8 mmol/L (3.5-5.1)
[2019-02-25] MEDS: INSULIN LISPRO 300 UNITS/3 ML INSULN.PEN. SQ SCH ×5 (08:00→17:10)
[2019-02-25] MEDS: GABAPENTIN 300 MG CAPSULE. PO SCH ×2 (08:19→20:48)
[2019-02-25] MEDS: ASPIRIN CHEWABLE 81 MG TABLET. PO SCH (08:19)
[2019-02-25] MEDS: CHOLECALCIFEROL (VITAMIN D3) 1,000 UNIT TABLET PO SCH (08:19)
[2019-02-25] MEDS: LISINOPRIL 20 MG TABLET PO SCH (08:19)
[2019-02-25] MEDS: BISACODYL 5 MG TABLET.DR. PO SCH (08:19)
[2019-02-25] MEDS: FERROUS SULFATE 325 MG TABLET. PO SCH ×3 (08:19→20:49)
[2019-02-25] MEDS: PANTOPRAZOLE 40 MG TABLET.DR. PO SCH (08:19)
[2019-02-25] MEDS: SENNOSIDES/DOCUSATE 8.6/50MG TABLET. PO SCH ×2 (08:19→20:49)
[2019-02-25] MEDS: predniSONE 10 MG TABLET PO SCH (08:20)
[2019-02-25] MEDS: oxyCODONE/APAP 7.5/325 1 TAB TABLET PO PRN ×3 (08:20→22:50)
[2019-02-25] MEDS: OMEGA-3 FATTY ACIDS/FISH OIL 1,000 MG CAPSULE. PO SCH (08:20)
[2019-02-25] MEDS: METOPROLOL SUCC 24HR ER 100 MG TAB.ER.24H. PO SCH (08:20)
[2019-02-25] MEDS: INSULIN GLARGINE 300 UNITS/3 ML INSULN.PEN. SQ SCH ×2 (08:26→20:56)
--- NOTE | 2019-02-25 08:46 | CONS ---
DATE OF CONSULTATION: 02/24/2019 ATTENDING PHYSICIAN: Dr. Washington Stoll I saw him at the request of Dr. Stoll for evaluation about his hip and back pain. HISTORY OF PRESENT ILLNESS: This is an 83-year-old right-handed male admitted through the Emergency Room on 02/23/2019 with weakness and vomiting. He is with known coronary artery disease, hypertension, diabetes mellitus, on insulin, history of previous carcinoma of prostate, status post radiotherapy, mildly dilated ascending aorta 3.4 cm, admitted with bilateral hip pain and vomiting for about 2-3 times, nonbloody and not been eating and drinking much and has been falling a lot. He reportedly had trouble finding a bathroom at home on the day of admission. Blood sugar has been stable, takes the medication as prescribed. He denied any chest pain, shortness of breath, diarrhea. No headache or fevers. He has been unsteady on his feet for about 3-4 days as per his at bedside. The patient apparently did some yard work when the weather was good last week. The patient also with known lumbar spine surgery, chronic back pain, diabetes mellitus, diabetic peripheral neuropathy. He also had bilateral total knee arthroplasty, family history of hypertension. He lives with his , had stairs to manage. He uses a cane usually. His gets around using a roller walker. The patient was seen by physical therapy this afternoon and they noted him having significant discomfort with his hip area pain, worse in sitting, unable to tolerate sitting and standing, better supine. He was also seen as per consultation by Orthopedics. X-rays revealed demineralization with mild spurring and degeneration within bilateral hip joints and they noted him with tightness of heel cords. PHYSICAL EXAMINATION: The patient on physical examination today revealed an elderly male, obese. He is alert, in no acute distress. The patient had 5/5 grade muscle strength in his extremities. Deep tendon reflexes are decreased overall with absent knee and ankle jerks. He has had pain free range of motion on both hip joints. He has had painful limited movements of his lumbar spine and tenderness to palpation over lumbar paraspinal muscles extending over to sacroiliac joint area and straight leg raising test is negative bilaterally. The patient requires some help with rolling from side to side. I have not tested his transfers or ambulation skills at this time. His skin is intact at this time. The patient had minimal degree of lumbar paraspinal muscle spasm. He is obese with protuberant abdomen. ASSESSMENT: An elderly male with previous lumbar spine surgery and chronic back pain on and off with a recent lumbar sprain, superimposed on degenerative disk disease and degenerative joint disease. No clinical evidence of ongoing lumbar radiculopathy. His back sprain probably started after he hard worked in the last week or so. He presents with diabetes mellitus with peripheral neuropathy, obesity, hypertension, coronary artery disease, status post radiation therapy for carcinoma of prostate. RECOMMENDATION: To try physical modalities and lumbar support and try a course of prednisone to help ease some of the stiffness and soreness in his back. To consider an MRI scan of his lumbar vertebrae and trigger point injections if the pain persists. Dr. Stoll, appreciate asking me to participate in the care of this interesting patient. I will be glad to follow him with you as needed for the rehabilitation. ANISHA LOVELL MD DR: VICTORIANO/vale JOB#: [id number] / [id number]
--- NOTE | 2019-02-25 09:34 | PDOC ---
PROGRESS NOTES Subjective Subjective He admits continued low back pain and constipation. Objective Objective Vital Signs Date Time Temp Pulse Resp B/P (MAP) Pulse Ox O2 Delivery O2 Flow Rate FiO2 02/25/19 08:20 Room Air 02/25/19 08:20 67 175/80 02/25/19 07:00 97.5 18 95 97.5 Intake and Output 02/25/19 07:00 Output Total 2675 ml Balance -2675 ml Output Urine Total 2675 ml # Voids 100 Physical Exam Physical Exam He is upine in bed and continues with painfully limited lumbar spine ROM with tenderness to palpation over lumbar paraspinal muscles and sacroiliac joints and he requires help with bed mobility. Assessment Assessment Problems Medical Problems: (1) Hyperglycemia Status: Acute (2) Hyponatremia Status: Acute Plan Plan of Care To continue physical therapy and to consider trigger point injection to his low back area if pain persists and to SNF when medically stable. Comment Review of Relevant I have reviewed the following items sy (where applicable) has been applied. Labs Laboratory Tests Test 02/23/19 13:24 02/23/19 13:33 02/23/19 15:25 02/23/19 20:43 Glucose (Fingerstick) 246 mg/dL (70-99) 195 mg/dL (70-99) White Blood Count 16.1 x10^3/uL (4.0-11.0) Red Blood Count 4.00 x10^6/uL (4.30-5.70) Hemoglobin 12.8 g/dL (13.0-17.5) Hematocrit 37.6 % (39.0-53.0) Mean Corpuscular Volume 94 fL (79-100) Mean Corpuscular Hemoglobin 32 pg (25-35) Mean Corpuscular Hemoglobin Concent 34 g/dL (31-37) Red Cell Distribution Width 12.9 % (11.5-14.5) Platelet Count 272 x10^3/uL (140-400) Neutrophils (%) (Auto) 89 % (31-73) Lymphocytes (%) (Auto) 5 % (24-48) Monocytes (%) (Auto) 5 % (0-9) Eosinophils (%) (Auto) 0 % (0-3) Basophils (%) (Auto) 0 % (0-3) Neutrophils # (Auto) 14.4 x10^3uL (1.8-7.7) Lymphocytes # (Auto) 0.8 x10^3/uL (1.0-4.8) Monocytes # (Auto) 0.8 x10^3/uL (0.0-1.1) Eosinophils # (Auto) 0.0 x10^3/uL (0.0-0.7) Basophils # (Auto) 0.1 x10^3/uL (0.0-0.2) Segmented Neutrophils % 84 % (35-66) Band Neutrophils % 4 % (0-9) Lymphocytes % 5 % (24-48) Monocytes % 7 % (0-10) Platelet Estimate Adequate (ADEQUATE) Sodium Level 120 mmol/L (136-145) Potassium Level 4.5 mmol/L (3.5-5.1) Chloride Level 83 mmol/L (98-107) Carbon Dioxide Level 23 mmol/L (21-32) Anion Gap 14 (6-14) Blood Urea Nitrogen 19 mg/dL (8-26) Creatinine 1.1 mg/dL (0.7-1.3) Estimated GFR (Cockcroft-Gault) 63.8 BUN/Creatinine Ratio 17 (6-20) Glucose Level 237 mg/dL (70-99) Calcium Level 9.5 mg/dL (8.5-10.1) Total Bilirubin 0.5 mg/dL (0.2-1.0) Aspartate Amino Transf (AST/SGOT) 11 U/L (15-37) Alanine Aminotransferase (ALT/SGPT) 24 U/L (16-63) Alkaline Phosphatase 180 U/L (46-116) Troponin I Quantitative < 0.017 ng/mL (0.000-0.055) Total Protein 7.5 g/dL (6.4-8.2) Albumin 3.6 g/dL (3.4-5.0) Albumin/Globulin Ratio 0.9 (1.0-1.7) Lipase 135 U/L (73-393) Thyroid Stimulating Hormone (TSH) 1.023 uIU/mL (0.358-3.74) Urine Collection Type Unknown Urine Color Yellow Urine Clarity Clear Urine pH 6.5 Urine Specific [place] >=1.030 Urine Protein Negative mg/dL (NEG-TRACE) Urine Glucose (UA) Negative mg/dL (NEG) Urine Ketones (Stick) Negative mg/dL (NEG) Urine Blood Negative (NEG) Urine Nitrite Negative (NEG) Urine Bilirubin Negative (NEG) Urine Urobilinogen Dipstick 0.2 mg/dL (0.2 mg/dL) Urine Leukocyte Esterase Negative (NEG) Urine RBC 0 /HPF (0-2) Urine WBC 0 /HPF (0-4) Urine Squamous Epithelial Cells Occ /LPF Urine Bacteria 0 /HPF (0-FEW) Urine Hyaline Casts Occasional /HPF Urine Mucus Slight /LPF Test 02/23/19 20:50 02/24/19 04:15 02/24/19 07:18 02/24/19 11:38 Urine Random Sodium 107 mmol/L (Not Estab.) White Blood Count 12.6 x10^3/uL (4.0-11.0) Red Blood Count 3.71 x10^6/uL (4.30-5.70) Hemoglobin 11.7 g/dL (13.0-17.5) Hematocrit 35.2 % (39.0-53.0) Mean Corpuscular Volume 95 fL (79-100) Mean Corpuscular Hemoglobin 32 pg (25-35) Mean Corpuscular Hemoglobin Concent 33 g/dL (31-37) Red Cell Distribution Width 12.9 % (11.5-14.5) Platelet Count 247 x10^3/uL (140-400) Neutrophils (%) (Auto) 81 % (31-73) Lymphocytes (%) (Auto) 11 % (24-48) Monocytes (%) (Auto) 8 % (0-9) Eosinophils (%) (Auto) 1 % (0-3) Basophils (%) (Auto) 0 % (0-3) Neutrophils # (Auto) 10.2 x10^3uL (1.8-7.7) Lymphocytes # (Auto) 1.3 x10^3/uL (1.0-4.8) Monocytes # (Auto) 1.0 x10^3/uL (0.0-1.1) Eosinophils # (Auto) 0.1 x10^3/uL (0.0-0.7) Basophils # (Auto) 0.0 x10^3/uL (0.0-0.2) Sodium Level 125 mmol/L (136-145) Potassium Level 4.5 mmol/L (3.5-5.1) Chloride Level 88 mmol/L (98-107) Carbon Dioxide Level 28 mmol/L (21-32) Anion Gap 9 (6-14) Blood Urea Nitrogen 14 mg/dL (8-26) Creatinine 0.9 mg/dL (0.7-1.3) Estimated GFR (Cockcroft-Gault) 80.4 BUN/Creatinine Ratio 16 (6-20) Glucose Level 170 mg/dL (70-99) Calcium Level 8.8 mg/dL (8.5-10.1) Total Bilirubin 0.4 mg/dL (0.2-1.0) Direct Bilirubin 0.1 mg/dL (0.0-0.2) Aspartate Amino Transf (AST/SGOT) 11 U/L (15-37) Alanine Aminotransferase (ALT/SGPT) 22 U/L (16-63) Alkaline Phosphatase 167 U/L (46-116) Total Protein 6.8 g/dL (6.4-8.2) Albumin 3.2 g/dL (3.4-5.0) Albumin/Globulin Ratio 0.9 (1.0-1.7) Cortisol AM Sample 18.1 ug/dL (4.3-22.4) Glucose (Fingerstick) 149 mg/dL (70-99) 146 mg/dL (70-99) Test 02/24/19 14:08 02/24/19 16:28 02/24/19 20:31 02/25/19 05:25 Glucose (Fingerstick) 176 mg/dL (70-99) 163 mg/dL (70-99) 140 mg/dL (70-99) Sodium Level 128 mmol/L (136-145) Potassium Level 4.8 mmol/L (3.5-5.1) Chloride Level 93 mmol/L (98-107) Carbon Dioxide Level 25 mmol/L (21-32) Anion Gap 10 (6-14) Blood Urea Nitrogen 16 mg/dL (8-26) Creatinine 0.8 mg/dL (0.7-1.3) Estimated GFR (Cockcroft-Gault) 92.1 Glucose Level 191 mg/dL (70-99) Calcium Level 9.1 mg/dL (8.5-10.1) Test 02/25/19 07:26 Glucose (Fingerstick) 159 mg/dL (70-99) Laboratory Tests Test 02/24/19 11:38 02/24/19 14:08 02/24/19 16:28 02/24/19 20:31 Glucose (Fingerstick) 146 mg/dL (70-99) 176 mg/dL (70-99) 163 mg/dL (70-99) 140 mg/dL (70-99) Test 02/25/19 05:25 02/25/19 07:26 Sodium Level 128 mmol/L (136-145) Potassium Level 4.8 mmol/L (3.5-5.1) Chloride Level 93 mmol/L (98-107) Carbon Dioxide Level 25 mmol/L (21-32) Anion Gap 10 (6-14) Blood Urea Nitrogen 16 mg/dL (8-26) Creatinine 0.8 mg/dL (0.7-1.3) Estimated GFR (Cockcroft-Gault) 92.1 Glucose Level 191 mg/dL (70-99) Calcium Level 9.1 mg/dL (8.5-10.1) Glucose (Fingerstick) 159 mg/dL (70-99) Medications Current Medications Fentanyl Citrate (Fentanyl 2ml Vial) 25 mcg 1X ONCE IV Last administered on at 14:12; Start 02/23/19 at 13:30; Stop 02/23/19 at 13:31; Status DC Ondansetron HCl (Zofran) 4 mg 1X ONCE IV Last administered on 02/23/19at 14:11 ; Start 02/23/19 at 13:30; Stop 02/23/19 at 13:31; Status DC Sodium Chloride 1,000 ml @ 1,000 mls/hr 1X ONCE IV Last administered on at 14:30; Start 02/23/19 at 14:30; Stop 02/23/19 at 15:29; Status DC Iohexol (Omnipaque 300 Mg/ml) 75 ml 1X ONCE IV ; Start 02/23/19 at 15:00; Stop 02/23/19 at 15:01; Status DC Info (CONTRAST GIVEN -- Rx MONITORING) 1 each PRN DAILY PRN MC SEE COMMENTS; Start 02/23/19 at 15:00; Stop 02/25/19 at 14:59 Acetaminophen/ Hydrocodone Bitart (Lortab 5/325) 1 tab 1X ONCE PO Last administered on 02/23/19at 15:59; Start 02/23/19 at 15:45; Stop 02/23/19 at 15:46 ; Status DC Ondansetron HCl (Zofran) 4 mg PRN Q8HRS PRN IV NAUSEA/VOMITING; Start 02/23/19 at 16:15; Stop 02/24/19 at 16:14; Status DC Fentanyl Citrate (Fentanyl 2ml Vial) 50 mcg PRN Q1HR PRN IV PAIN Last administered on 02/23/19at 18:12; Start 02/23/19 at 16:15; Stop 02/24/19 at 16:14 ; Status DC Acetaminophen (Tylenol) 650 mg PRN Q4HRS PRN PO FEVER; Start 02/23/19 at 16:15 ; Stop 02/24/19 at 16:14; Status DC Potassium Chloride/Sodium Chloride 1,000 ml @ 100 mls/hr Q10H IV Last administered on 02/25/19at 02:00; Start 02/23/19 at 20:30 Al Hydroxide/Mg Hydroxide (Mylanta Plus Xs) 30 ml PRN Q3HRS PRN PO HEARTBURN / GAS; Start 02/23/19 at 20:00 Senna/Docusate Sodium (Senna Plus) 1 tab BID PO Last administered on 02/25/19at 08:19; Start 02/23/19 at 21:00 Magnesium Hydroxide (Milk Of Magnesia) 2,400 mg PRN Q12HR PRN PO CONSTIPATION; Start 02/23/19 at 20:00 Heparin Sodium (Porcine) (Heparin Sodium) 5,000 unit Q8HRS SQ Last administered on 02/25/19at 05:59; Start 02/23/19 at 22:00 Acetaminophen (Tylenol) 325 mg HS PO Last administered on 02/24/19at 20:33; Start 02/23/19 at 21:00 Aspirin (Children'S Aspirin) 81 mg DAILY08 PO Last administered on 02/25/19at 08 :19; Start 02/24/19 at 08:00 Vitamin D (Vitamin D3) 1,000 unit DAILY PO Last administered on 02/25/19at 08:19 ; Start 02/24/19 at 09:00 Ferrous Sulfate (Feosol) 325 mg TID PO Last administered on 02/25/19 08:19; Start 02/23/19 at 21:00 Insulin Human Lispro (HumaLOG) 15 units BIDWMEALS SQ Last administered on at 08:25; Start 02/24/19 at 08:00 Lisinopril (Prinivil) 40 mg DAILY PO Last administered on 02/25/19 08:19; Start 02/24/19 at 09:00 Metoprolol Succinate (Toprol Xl) 100 mg DAILY PO Last administered on 08:20; Start 02/24/19 at 09:00 Oxycodone/ Acetaminophen (Percocet 7.5/ 325) 1 tab PRN Q6HRS PRN PO PAIN Last administered on 02/25/19 08:20; Start 02/23/19 at 20:00 Gabapentin (Neurontin) 600 mg BID PO Last administered on 02/25/19 08:19; Start 02/23/19 at 21:00 Metformin HCl (Glucophage) 1,000 mg BIDWMEALS PO ; Start 02/25/19 at 17:00 Insulin Glargine (Lantus) 18 units BID SQ Last administered on 02/25/19 08:26 ; Start 02/23/19 at 21:00 Fish Oil (Fish Oil) 1,000 mg DAILY PO Last administered on 02/25/19 08:20; Start 02/24/19 at 09:00 Insulin Human Lispro (HumaLOG) 0-7 UNITS TIDWMEALS SQ Last administered on 02/24 17:23; Start 02/24/19 at 08:00 Dextrose (Dextrose 50%-Water Syringe) 12.5 gm PRN Q15MIN PRN IV SEE COMMENTS; Start 02/23/19 at 20:00 Prednisone (Prednisone) 10 mg DAILY PO Last administered on 02/25/19 08:20; Start 02/24/19 at 18:15 Pantoprazole Sodium (Protonix) 40 mg DAILYAC PO Last administered on 02/25/19 08:19; Start 02/24/19 at 18:15 Tizanidine HCl (Zanaflex) 4 mg PRN Q8HRS PRN PO MUSCLE SPASMS Last administered on 02/24/19at 18:28; Start 02/24/19 at 18:15 Bisacodyl (Dulcolax Tab) 10 mg DAILY PO Last administered on 02/25/19at 08:19; Start 02/25/19 at 09:00 Guaifenesin (MUCINEX ER with DM) 2 tab PRN Q12HR PRN PO COUGH 1ST CHOICE Last administered on 02/24/19at 23:10; Start 02/24/19 at 23:00 Active Scripts Active Reported Tylenol (Acetaminophen) 325 Mg Tablet 1 Tab PO HS Vitamin D3 (Cholecalciferol (Vitamin D3)) 1,000 Unit Tablet 1 Tab PO DAILY Fish Oil 1,000 mg Softgel ([place]-3S/Dha/Epa/Fish Oil) 1 Each Capsule 1 Each PO DAILY Humulin N (Nph, Human Insulin Isophane) 100 Unit/1 Ml Vial 18 Unit SQ [id number] Humulin R (Insulin Regular, Human) 100 Unit/1 Ml Vial 15 Unit IJ [id number] Oxycodon-Acetaminophen 7.5-325 (Oxycodone Hcl/Acetaminophen) 1 Each Tablet 7.5- 325 Mg PO PRN Q6HRS PRN Furosemide 20 Mg Tablet 20 Mg PO DAILY Ferrous Sulfate 325 Mg Tablet 325 Mg PO TID Gabapentin 600 Mg Tablet 600 Mg PO BID Aspirin 81 Mg Tab.chew 81 Mg PO DAILY08 last dose this amnext dose tomorrow am Metoprolol Succinate ( Xl ) (Metoprolol Succinate) 100 Mg Tab.er.24h 100 Mg PO DAILY last dose this am next dose tomorrow am Metformin Hcl 500 Mg Tablet 1,000 Mg PO BIDWMEALS need to take with supper Lisinopril 40 Mg Tablet 40 Mg PO DAILY last dose this am next dose in am Vitals/I & O Vital Sign - Last 24 Hours 02/24/19 02/24/19 02/24/19 02/24/19 11:00 15:00 17:40 19:00 Temp 98.6 98.5 98.9 98.6 98.5 98.9 Pulse 77 71 76 Resp 18 20 20 18 B/P (MAP) 112/51 (71) 129/60 (83) 133/57 (82) Pulse Ox 94 94 94 95 O2 Delivery Room Air Room Air Room Air Room Air 02/24/19 02/24/19 02/25/19 02/25/19 20:00 23:00 03:00 07:00 Temp 98.9 97.8 97.5 98.9 97.8 97.5 Pulse 69 67 67 Resp 18 18 18 B/P (MAP) 132/62 (85) 167/70 (102) 175/80 (111) Pulse Ox 96 95 95 O2 Delivery Room Air Room Air Room Air Room Air 02/25/19 02/25/19 02/25/19 08:19 08:20 08:20 Pulse 67 67 B/P (MAP) 175/80 175/80 O2 Delivery Room Air Intake and Output 02/24/19 02/24/19 02/25/19 15:00 23:00 07:00 Output Total 925 ml 1750 ml Balance -925 ml -1750 ml ANISHA LOVELL MD Feb 25, 2019 09:34
--- NOTE | 2019-02-25 10:18 | PDOC ---
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 ortho consulted and nothing further to add CAD DM Obesity PLAN: continue IVF follow Na, improved to 128 TSH and cortisol pending replaced K elevated alk phos secondary to bone demineralization hold home lasix PT consult continue home meds for DM, CAD bmp in AM patient very weak and would benefit from rehab. sw consult for placement would like Na to be 130 prior to discharge Vitals Vitals Vital Signs Date Time Temp Pulse Resp B/P (MAP) Pulse Ox O2 Delivery O2 Flow Rate FiO2 02/25/19 08:20 Room Air 02/25/19 08:20 67 175/80 02/25/19 07:00 97.5 18 95 97.5 Physical Exam General: Alert, Oriented X3, Cooperative, No acute distress Lungs: Clear Extremities: No clubbing, No edema (distal pulses +1) Labs LABS Laboratory Tests Test 02/24/19 11:38 02/24/19 14:08 02/24/19 16:28 02/24/19 20:31 Glucose (Fingerstick) 146 mg/dL (70-99) 176 mg/dL (70-99) 163 mg/dL (70-99) 140 mg/dL (70-99) Test 02/25/19 05:25 02/25/19 07:26 Sodium Level 128 mmol/L (136-145) Potassium Level 4.8 mmol/L (3.5-5.1) Chloride Level 93 mmol/L (98-107) Carbon Dioxide Level 25 mmol/L (21-32) Anion Gap 10 (6-14) Blood Urea Nitrogen 16 mg/dL (8-26) Creatinine 0.8 mg/dL (0.7-1.3) Estimated GFR (Cockcroft-Gault) 92.1 Glucose Level 191 mg/dL (70-99) Calcium Level 9.1 mg/dL (8.5-10.1) Glucose (Fingerstick) 159 mg/dL (70-99) Assessment and Plan Assessmemt and Plan Problems Medical Problems: (1) Hyperglycemia Status: Acute (2) Hyponatremia Status: Acute Comment Review of Relevant I have reviewed the following items sy (where applicable) has been applied. Labs Laboratory Tests Test 02/23/19 13:24 02/23/19 13:33 02/23/19 15:25 02/23/19 20:43 Glucose (Fingerstick) 246 mg/dL (70-99) 195 mg/dL (70-99) White Blood Count 16.1 x10^3/uL (4.0-11.0) Red Blood Count 4.00 x10^6/uL (4.30-5.70) Hemoglobin 12.8 g/dL (13.0-17.5) Hematocrit 37.6 % (39.0-53.0) Mean Corpuscular Volume 94 fL (79-100) Mean Corpuscular Hemoglobin 32 pg (25-35) Mean Corpuscular Hemoglobin Concent 34 g/dL (31-37) Red Cell Distribution Width 12.9 % (11.5-14.5) Platelet Count 272 x10^3/uL (140-400) Neutrophils (%) (Auto) 89 % (31-73) Lymphocytes (%) (Auto) 5 % (24-48) Monocytes (%) (Auto) 5 % (0-9) Eosinophils (%) (Auto) 0 % (0-3) Basophils (%) (Auto) 0 % (0-3) Neutrophils # (Auto) 14.4 x10^3uL (1.8-7.7) Lymphocytes # (Auto) 0.8 x10^3/uL (1.0-4.8) Monocytes # (Auto) 0.8 x10^3/uL (0.0-1.1) Eosinophils # (Auto) 0.0 x10^3/uL (0.0-0.7) Basophils # (Auto) 0.1 x10^3/uL (0.0-0.2) Segmented Neutrophils % 84 % (35-66) Band Neutrophils % 4 % (0-9) Lymphocytes % 5 % (24-48) Monocytes % 7 % (0-10) Platelet Estimate Adequate (ADEQUATE) Sodium Level 120 mmol/L (136-145) Potassium Level 4.5 mmol/L (3.5-5.1) Chloride Level 83 mmol/L (98-107) Carbon Dioxide Level 23 mmol/L (21-32) Anion Gap 14 (6-14) Blood Urea Nitrogen 19 mg/dL (8-26) Creatinine 1.1 mg/dL (0.7-1.3) Estimated GFR (Cockcroft-Gault) 63.8 BUN/Creatinine Ratio 17 (6-20) Glucose Level 237 mg/dL (70-99) Calcium Level 9.5 mg/dL (8.5-10.1) Total Bilirubin 0.5 mg/dL (0.2-1.0) Aspartate Amino Transf (AST/SGOT) 11 U/L (15-37) Alanine Aminotransferase (ALT/SGPT) 24 U/L (16-63) Alkaline Phosphatase 180 U/L (46-116) Troponin I Quantitative < 0.017 ng/mL (0.000-0.055) Total Protein 7.5 g/dL (6.4-8.2) Albumin 3.6 g/dL (3.4-5.0) Albumin/Globulin Ratio 0.9 (1.0-1.7) Lipase 135 U/L (73-393) Thyroid Stimulating Hormone (TSH) 1.023 uIU/mL (0.358-3.74) Urine Collection Type Unknown Urine Color Yellow Urine Clarity Clear Urine pH 6.5 Urine Specific Crenshaw >=1.030 Urine Protein Negative mg/dL (NEG-TRACE) Urine Glucose (UA) Negative mg/dL (NEG) Urine Ketones (Stick) Negative mg/dL (NEG) Urine Blood Negative (NEG) Urine Nitrite Negative (NEG) Urine Bilirubin Negative (NEG) Urine Urobilinogen Dipstick 0.2 mg/dL (0.2 mg/dL) Urine Leukocyte Esterase Negative (NEG) Urine RBC 0 /HPF (0-2) Urine WBC 0 /HPF (0-4) Urine Squamous Epithelial Cells Occ /LPF Urine Bacteria 0 /HPF (0-FEW) Urine Hyaline Casts Occasional /HPF Urine Mucus Slight /LPF Test 02/23/19 20:50 02/24/19 04:15 02/24/19 07:18 02/24/19 11:38 Urine Random Sodium 107 mmol/L (Not Estab.) White Blood Count 12.6 x10^3/uL (4.0-11.0) Red Blood Count 3.71 x10^6/uL (4.30-5.70) Hemoglobin 11.7 g/dL (13.0-17.5) Hematocrit 35.2 % (39.0-53.0) Mean Corpuscular Volume 95 fL (79-100) Mean Corpuscular Hemoglobin 32 pg (25-35) Mean Corpuscular Hemoglobin Concent 33 g/dL (31-37) Red Cell Distribution Width 12.9 % (11.5-14.5) Platelet Count 247 x10^3/uL (140-400) Neutrophils (%) (Auto) 81 % (31-73) Lymphocytes (%) (Auto) 11 % (24-48) Monocytes (%) (Auto) 8 % (0-9) Eosinophils (%) (Auto) 1 % (0-3) Basophils (%) (Auto) 0 % (0-3) Neutrophils # (Auto) 10.2 x10^3uL (1.8-7.7) Lymphocytes # (Auto) 1.3 x10^3/uL (1.0-4.8) Monocytes # (Auto) 1.0 x10^3/uL (0.0-1.1) Eosinophils # (Auto) 0.1 x10^3/uL (0.0-0.7) Basophils # (Auto) 0.0 x10^3/uL (0.0-0.2) Sodium Level 125 mmol/L (136-145) Potassium Level 4.5 mmol/L (3.5-5.1) Chloride Level 88 mmol/L (98-107) Carbon Dioxide Level 28 mmol/L (21-32) Anion Gap 9 (6-14) Blood Urea Nitrogen 14 mg/dL (8-26) Creatinine 0.9 mg/dL (0.7-1.3) Estimated GFR (Cockcroft-Gault) 80.4 BUN/Creatinine Ratio 16 (6-20) Glucose Level 170 mg/dL (70-99) Calcium Level 8.8 mg/dL (8.5-10.1) Total Bilirubin 0.4 mg/dL (0.2-1.0) Direct Bilirubin 0.1 mg/dL (0.0-0.2) Aspartate Amino Transf (AST/SGOT) 11 U/L (15-37) Alanine Aminotransferase (ALT/SGPT) 22 U/L (16-63) Alkaline Phosphatase 167 U/L (46-116) Total Protein 6.8 g/dL (6.4-8.2) Albumin 3.2 g/dL (3.4-5.0) Albumin/Globulin Ratio 0.9 (1.0-1.7) Cortisol AM Sample 18.1 ug/dL (4.3-22.4) Glucose (Fingerstick) 149 mg/dL (70-99) 146 mg/dL (70-99) Test 02/24/19 14:08 02/24/19 16:28 02/24/19 20:31 02/25/19 05:25 Glucose (Fingerstick) 176 mg/dL (70-99) 163 mg/dL (70-99) 140 mg/dL (70-99) Sodium Level 128 mmol/L (136-145) Potassium Level 4.8 mmol/L (3.5-5.1) Chloride Level 93 mmol/L (98-107) Carbon Dioxide Level 25 mmol/L (21-32) Anion Gap 10 (6-14) Blood Urea Nitrogen 16 mg/dL (8-26) Creatinine 0.8 mg/dL (0.7-1.3) Estimated GFR (Cockcroft-Gault) 92.1 Glucose Level 191 mg/dL (70-99) Calcium Level 9.1 mg/dL (8.5-10.1) Test 02/25/19 07:26 Glucose (Fingerstick) 159 mg/dL (70-99) Laboratory Tests Test 02/24/19 11:38 02/24/19 14:08 02/24/19 16:28 02/24/19 20:31 Glucose (Fingerstick) 146 mg/dL (70-99) 176 mg/dL (70-99) 163 mg/dL (70-99) 140 mg/dL (70-99) Test 02/25/19 05:25 02/25/19 07:26 Sodium Level 128 mmol/L (136-145) Potassium Level 4.8 mmol/L (3.5-5.1) Chloride Level 93 mmol/L (98-107) Carbon Dioxide Level 25 mmol/L (21-32) Anion Gap 10 (6-14) Blood Urea Nitrogen 16 mg/dL (8-26) Creatinine 0.8 mg/dL (0.7-1.3) Estimated GFR (Cockcroft-Gault) 92.1 Glucose Level 191 mg/dL (70-99) Calcium Level 9.1 mg/dL (8.5-10.1) Glucose (Fingerstick) 159 mg/dL (70-99) Medications Current Medications Fentanyl Citrate (Fentanyl 2ml Vial) 25 mcg 1X ONCE IV Last administered on at 14:12; Start 02/23/19 at 13:30; Stop 02/23/19 at 13:31; Status DC Ondansetron HCl (Zofran) 4 mg 1X ONCE IV Last administered on 02/23/19at 14:11 ; Start 02/23/19 at 13:30; Stop 02/23/19 at 13:31; Status DC Sodium Chloride 1,000 ml @ 1,000 mls/hr 1X ONCE IV Last administered on at 14:30; Start 02/23/19 at 14:30; Stop 02/23/19 at 15:29; Status DC Iohexol (Omnipaque 300 Mg/ml) 75 ml 1X ONCE IV ; Start 02/23/19 at 15:00; Stop 02/23/19 at 15:01; Status DC Info (CONTRAST GIVEN -- Rx MONITORING) 1 each PRN DAILY PRN MC SEE COMMENTS; Start 02/23/19 at 15:00; Stop 02/25/19 at 14:59 Acetaminophen/ Hydrocodone Bitart (Lortab 5/325) 1 tab 1X ONCE PO Last administered on 02/23/19at 15:59; Start 02/23/19 at 15:45; Stop 02/23/19 at 15:46 ; Status DC Ondansetron HCl (Zofran) 4 mg PRN Q8HRS PRN IV NAUSEA/VOMITING; Start 02/23/19 at 16:15; Stop 02/24/19 at 16:14; Status DC Fentanyl Citrate (Fentanyl 2ml Vial) 50 mcg PRN Q1HR PRN IV PAIN Last administered on 02/23/19at 18:12; Start 02/23/19 at 16:15; Stop 02/24/19 at 16:14 ; Status DC Acetaminophen (Tylenol) 650 mg PRN Q4HRS PRN PO FEVER; Start 02/23/19 at 16:15 ; Stop 02/24/19 at 16:14; Status DC Potassium Chloride/Sodium Chloride 1,000 ml @ 100 mls/hr Q10H IV Last administered on 02/25/19at 02:00; Start 02/23/19 at 20:30 Al Hydroxide/Mg Hydroxide (Mylanta Plus Xs) 30 ml PRN Q3HRS PRN PO HEARTBURN / GAS; Start 02/23/19 at 20:00 Senna/Docusate Sodium (Senna Plus) 1 tab BID PO Last administered on 02/25/19 08:19; Start 02/23/19 at 21:00 Magnesium Hydroxide (Milk Of Magnesia) 2,400 mg PRN Q12HR PRN PO CONSTIPATION; Start 02/23/19 at 20:00 Heparin Sodium (Porcine) (Heparin Sodium) 5,000 unit Q8HRS SQ Last administered on 02/25/19 05:59; Start 02/23/19 at 22:00 Acetaminophen (Tylenol) 325 mg HS PO Last administered on 02/24/19at 20:33; Start 02/23/19 at 21:00 Aspirin (Children'S Aspirin) 81 mg DAILY08 PO Last administered on 02/25/19 08 :19; Start 02/24/19 at 08:00 Vitamin D (Vitamin D3) 1,000 unit DAILY PO Last administered on 02/25/19 08:19 ; Start 02/24/19 at 09:00 Ferrous Sulfate (Feosol) 325 mg TID PO Last administered on 02/25/19 08:19; Start 02/23/19 at 21:00 Insulin Human Lispro (HumaLOG) 15 units BIDWMEALS SQ Last administered on at 08:25; Start 02/24/19 at 08:00 Lisinopril (Prinivil) 40 mg DAILY PO Last administered on 02/25/19 08:19; Start 02/24/19 at 09:00 Metoprolol Succinate (Toprol Xl) 100 mg DAILY PO Last administered on 08:20; Start 02/24/19 at 09:00 Oxycodone/ Acetaminophen (Percocet 7.5/ 325) 1 tab PRN Q6HRS PRN PO PAIN Last administered on 02/25/19 08:20; Start 02/23/19 at 20:00 Gabapentin (Neurontin) 600 mg BID PO Last administered on 02/25/19 08:19; Start 02/23/19 at 21:00 Metformin HCl (Glucophage) 1,000 mg BIDWMEALS PO ; Start 02/25/19 at 17:00 Insulin Glargine (Lantus) 18 units BID SQ Last administered on 02/25/19at 08:26 ; Start 02/23/19 at 21:00 Fish Oil (Fish Oil) 1,000 mg DAILY PO Last administered on 02/25/19at 08:20; Start 02/24/19 at 09:00 Insulin Human Lispro (HumaLOG) 0-7 UNITS TIDWMEALS SQ Last administered on 02/24at 17:23; Start 02/24/19 at 08:00 Dextrose (Dextrose 50%-Water Syringe) 12.5 gm PRN Q15MIN PRN IV SEE COMMENTS; Start 02/23/19 at 20:00 Prednisone (Prednisone) 10 mg DAILY PO Last administered on 02/25/19at 08:20; Start 02/24/19 at 18:15 Pantoprazole Sodium (Protonix) 40 mg DAILYAC PO Last administered on 02/25/19at 08:19; Start 02/24/19 at 18:15 Tizanidine HCl (Zanaflex) 4 mg PRN Q8HRS PRN PO MUSCLE SPASMS Last administered on 02/24/19at 18:28; Start 02/24/19 at 18:15 Bisacodyl (Dulcolax Tab) 10 mg DAILY PO Last administered on 02/25/19at 08:19; Start 02/25/19 at 09:00 Guaifenesin (MUCINEX ER with DM) 2 tab PRN Q12HR PRN PO COUGH 1ST CHOICE Last administered on 02/24/19at 23:10; Start 02/24/19 at 23:00 Active Scripts Active Reported Tylenol (Acetaminophen) 325 Mg Tablet 1 Tab PO HS Vitamin D3 (Cholecalciferol (Vitamin D3)) 1,000 Unit Tablet 1 Tab PO DAILY Fish Oil 1,000 mg Softgel (Mobile-3S/Dha/Epa/Fish Oil) 1 Each Capsule 1 Each PO DAILY Humulin N (Nph, Human Insulin Isophane) 100 Unit/1 Ml Vial 18 Unit SQ BID94 Humulin R (Insulin Regular, Human) 100 Unit/1 Ml Vial 15 Unit IJ BID94 Oxycodon-Acetaminophen 7.5-325 (Oxycodone Hcl/Acetaminophen) 1 Each Tablet 7.5- 325 Mg PO PRN Q6HRS PRN Furosemide 20 Mg Tablet 20 Mg PO DAILY Ferrous Sulfate 325 Mg Tablet 325 Mg PO TID Gabapentin 600 Mg Tablet 600 Mg PO BID Aspirin 81 Mg Tab.chew 81 Mg PO DAILY08 last dose this amnext dose tomorrow am Metoprolol Succinate ( Xl ) (Metoprolol Succinate) 100 Mg Tab.er.24h 100 Mg PO DAILY last dose this am next dose tomorrow am Metformin Hcl 500 Mg Tablet 1,000 Mg PO BIDWMEALS need to take with supper Lisinopril 40 Mg Tablet 40 Mg PO DAILY last dose this am next dose in am Vitals/I & O Vital Sign - Last 24 Hours 02/24/19 02/24/19 02/24/19 02/24/19 11:00 15:00 17:40 19:00 Temp 98.6 98.5 98.9 98.6 98.5 98.9 Pulse 77 71 76 Resp 18 20 20 18 B/P (MAP) 112/51 (71) 129/60 (83) 133/57 (82) Pulse Ox 94 94 94 95 O2 Delivery Room Air Room Air Room Air Room Air 02/24/19 02/24/19 02/25/19 02/25/19 20:00 23:00 03:00 07:00 Temp 98.9 97.8 97.5 98.9 97.8 97.5 Pulse 69 67 67 Resp 18 18 18 B/P (MAP) 132/62 (85) 167/70 (102) 175/80 (111) Pulse Ox 96 95 95 O2 Delivery Room Air Room Air Room Air Room Air 02/25/19 02/25/19 02/25/19 08:19 08:20 08:20 Pulse 67 67 B/P (MAP) 175/80 175/80 O2 Delivery Room Air Intake and Output 02/24/19 02/24/19 02/25/19 15:00 23:00 07:00 Output Total 925 ml 1750 ml Balance -925 ml -1750 ml MICHAEL MATHEWS MD Feb 25, 2019 10:18
[2019-02-25 11:00] VITALS: BP 122/71
--- NOTE | 2019-02-25 11:00 | NUR ---
SW following pt for anticipated dc needs. Chart reviewed and DW RN. Pt lives at home with spouse. PT/OT recommends SNU. Spoke with pt and regarding SNU options and insurance coverage. Pt and agreeable with [facility]. SW phoned and faxed referral to [facility]. Pt acceptance and admission pending. SW will continue to follow.
[2019-02-25] MEDS: tiZANidine 4 MG TABLET. PO PRN ×2 (11:19→20:51)
[2019-02-25] MEDS: IV NORMAL SALINE 1000ML BAG 1,000 ML IV SCH (11:50)
[2019-02-25 15:00] VITALS: BP 141/66
--- NOTE | 2019-02-25 15:27 | NUR ---
SUNNI following pt. Pt has been accepted at [facility] and facility will have a bed available on Saturday. Will continue to follow.
[2019-02-25] MEDS: metFORMIN 500 MG TABLET PO SCH (17:06)
[2019-02-25 19:00] VITALS: BP 154/58
[2019-02-25] MEDS: ACETAMINOPHEN 325 MG TABLET. PO SCH (20:48)
[2019-02-25 23:00] VITALS: BP 134/59
[2019-02-26 03:00] VITALS: BP 148/68
[2019-02-26] MEDS: HEPARIN for SUB-Q USE 5,000 UNIT/ML VIAL. SQ SCH ×3 (06:27→21:01)
[2019-02-26 07:00] VITALS: BP 134/72
[2019-02-26] MEDS: INSULIN LISPRO 300 UNITS/3 ML INSULN.PEN. SQ SCH ×5 (08:00→17:20)
[2019-02-26] MEDS: CHOLECALCIFEROL (VITAMIN D3) 1,000 UNIT TABLET PO SCH (08:32)
[2019-02-26] MEDS: metFORMIN 500 MG TABLET PO SCH ×2 (08:32→17:17)
[2019-02-26] MEDS: predniSONE 10 MG TABLET PO SCH (08:33)
[2019-02-26] MEDS: PANTOPRAZOLE 40 MG TABLET.DR. PO SCH (08:33)
[2019-02-26] MEDS: SENNOSIDES/DOCUSATE 8.6/50MG TABLET. PO SCH ×2 (08:33→20:55)
[2019-02-26] MEDS: FERROUS SULFATE 325 MG TABLET. PO SCH ×3 (08:33→20:55)
[2019-02-26] MEDS: OMEGA-3 FATTY ACIDS/FISH OIL 1,000 MG CAPSULE. PO SCH (08:33)
[2019-02-26] MEDS: ASPIRIN CHEWABLE 81 MG TABLET. PO SCH (08:33)
[2019-02-26] MEDS: LISINOPRIL 20 MG TABLET PO SCH (08:33)
[2019-02-26] MEDS: GABAPENTIN 300 MG CAPSULE. PO SCH ×2 (08:33→20:55)
[2019-02-26] MEDS: METOPROLOL SUCC 24HR ER 100 MG TAB.ER.24H. PO SCH (08:34)
[2019-02-26] MEDS: IV NORMAL SALINE 1000ML BAG 1,000 ML IV SCH (08:34)
[2019-02-26] MEDS: BISACODYL 5 MG TABLET.DR. PO SCH (08:34)
--- NOTE | 2019-02-26 08:34 | PDOC ---
PROGRESS NOTES Subjective Subjective He feels better and he got up with physical therapy using abdominal binder. He stood only for one minute. Objective Objective Vital Signs Date Time Temp Pulse Resp B/P (MAP) Pulse Ox O2 Delivery O2 Flow Rate FiO2 02/26/19 03:00 98.0 69 18 148/68 (94) 94 Room Air 98.0 Intake and Output 02/26/19 06:59 Intake Total 1250 ml Output Total 2275 ml Balance -1025 ml Intake Oral 1250 ml Output Urine Total 2275 ml # Voids 4 # Bowel Movements 1 Physical Exam Physical Exam To [facility] when medically stable. Assessment Assessment Problems Medical Problems: (1) Hyperglycemia Status: Acute (2) Hyponatremia Status: Acute Comment Review of Relevant I have reviewed the following items sy (where applicable) has been applied. Labs Laboratory Tests Test 02/24/19 11:38 02/24/19 14:08 02/24/19 16:28 02/24/19 20:31 Glucose (Fingerstick) 146 mg/dL (70-99) 176 mg/dL (70-99) 163 mg/dL (70-99) 140 mg/dL (70-99) Test 02/25/19 05:25 02/25/19 07:26 02/25/19 11:46 02/25/19 16:24 Sodium Level 128 mmol/L (136-145) Potassium Level 4.8 mmol/L (3.5-5.1) Chloride Level 93 mmol/L (98-107) Carbon Dioxide Level 25 mmol/L (21-32) Anion Gap 10 (6-14) Blood Urea Nitrogen 16 mg/dL (8-26) Creatinine 0.8 mg/dL (0.7-1.3) Estimated GFR (Cockcroft-Gault) 92.1 Glucose Level 191 mg/dL (70-99) Calcium Level 9.1 mg/dL (8.5-10.1) Glucose (Fingerstick) 159 mg/dL (70-99) 133 mg/dL (70-99) 293 mg/dL (70-99) Test 02/25/19 20:31 02/26/19 07:40 Glucose (Fingerstick) 147 mg/dL (70-99) 114 mg/dL (70-99) Laboratory Tests Test 02/25/19 11:46 4/17/19 16:24 02/25/19 20:31 02/26/19 07:40 Glucose (Fingerstick) 133 mg/dL (70-99) 293 mg/dL (70-99) 147 mg/dL (70-99) 114 mg/dL (70-99) Medications Current Medications Fentanyl Citrate (Fentanyl 2ml Vial) 25 mcg 1X ONCE IV Last administered on 14:12; Start 02/23/19 at 13:30; Stop 02/23/19 at 13:31; Status DC Ondansetron HCl (Zofran) 4 mg 1X ONCE IV Last administered on 02/23/19at 14:11 ; Start 02/23/19 at 13:30; Stop 02/23/19 at 13:31; Status DC Sodium Chloride 1,000 ml @ 1,000 mls/hr 1X ONCE IV Last administered on at 14:30; Start 02/23/19 at 14:30; Stop 02/23/19 at 15:29; Status DC Iohexol (Omnipaque 300 Mg/ml) 75 ml 1X ONCE IV ; Start 02/23/19 at 15:00; Stop 02/23/19 at 15:01; Status DC Info (CONTRAST GIVEN -- Rx MONITORING) 1 each PRN DAILY PRN MC SEE COMMENTS; Start 02/23/19 at 15:00; Stop 02/25/19 at 14:59; Status DC Acetaminophen/ Hydrocodone Bitart (Lortab 5/325) 1 tab 1X ONCE PO Last administered on 02/23/19at 15:59; Start 02/23/19 at 15:45; Stop 02/23/19 at 15:46 ; Status DC Ondansetron HCl (Zofran) 4 mg PRN Q8HRS PRN IV NAUSEA/VOMITING; Start 02/23/19 at 16:15; Stop 02/24/19 at 16:14; Status DC Fentanyl Citrate (Fentanyl 2ml Vial) 50 mcg PRN Q1HR PRN IV PAIN Last administered on 02/23/19at 18:12; Start 02/23/19 at 16:15; Stop 02/24/19 at 16:14 ; Status DC Acetaminophen (Tylenol) 650 mg PRN Q4HRS PRN PO FEVER; Start 02/23/19 at 16:15 ; Stop 02/24/19 at 16:14; Status DC Potassium Chloride/Sodium Chloride 1,000 ml @ 100 mls/hr Q10H IV Last administered on 02/25/19at 02:00; Start 02/23/19 at 20:30; Stop 02/25/19 at 11:28 ; Status DC Al Hydroxide/Mg Hydroxide (Mylanta Plus Xs) 30 ml PRN Q3HRS PRN PO HEARTBURN / GAS; Start 02/23/19 at 20:00 Senna/Docusate Sodium (Senna Plus) 1 tab BID PO Last administered on 02/25/19at 20:49; Start 02/23/19 at 21:00 Magnesium Hydroxide (Milk Of Magnesia) 2,400 mg PRN Q12HR PRN PO CONSTIPATION; Start 02/23/19 at 20:00 Heparin Sodium (Porcine) (Heparin Sodium) 5,000 unit Q8HRS SQ Last administered on 02/26/19at 06:27; Start 02/23/19 at 22:00 Acetaminophen (Tylenol) 325 mg HS PO Last administered on 02/25/19at 20:48; Start 02/23/19 at 21:00 Aspirin (Children'S Aspirin) 81 mg DAILY08 PO Last administered on 02/25/19 08 :19; Start 02/24/19 at 08:00 Vitamin D (Vitamin D3) 1,000 unit DAILY PO Last administered on 02/25/19 08:19 ; Start 02/24/19 at 09:00 Ferrous Sulfate (Feosol) 325 mg TID PO Last administered on 02/25/19 20:49; Start 02/23/19 at 21:00 Insulin Human Lispro (HumaLOG) 15 units BIDWMEALS SQ Last administered on at 17:10; Start 02/24/19 at 08:00 Lisinopril (Prinivil) 40 mg DAILY PO Last administered on 02/25/19 08:19; Start 02/24/19 at 09:00 Metoprolol Succinate (Toprol Xl) 100 mg DAILY PO Last administered on at 08:20; Start 02/24/19 at 09:00 Oxycodone/ Acetaminophen (Percocet 7.5/ 325) 1 tab PRN Q6HRS PRN PO PAIN Last administered on 02/25/19at 22:50; Start 02/23/19 at 20:00 Gabapentin (Neurontin) 600 mg BID PO Last administered on 02/25/19at 20:48; Start 02/23/19 at 21:00 Metformin HCl (Glucophage) 1,000 mg BIDWMEALS PO Last administered on at 17:06; Start 02/25/19 at 17:00 Insulin Glargine (Lantus) 18 units BID SQ Last administered on 02/25/19at 20:56 ; Start 02/23/19 at 21:00 Fish Oil (Fish Oil) 1,000 mg DAILY PO Last administered on 02/25/19at 08:20; Start 02/24/19 at 09:00 Insulin Human Lispro (HumaLOG) 0-7 UNITS TIDWMEALS SQ Last administered on 02/25at 17:09; Start 02/24/19 at 08:00 Dextrose (Dextrose 50%-Water Syringe) 12.5 gm PRN Q15MIN PRN IV SEE COMMENTS; Start 02/23/19 at 20:00 Prednisone (Prednisone) 10 mg DAILY PO Last administered on 02/25/19at 08:20; Start 02/24/19 at 18:15 Pantoprazole Sodium (Protonix) 40 mg DAILYAC PO Last administered on 02/25/19 08:19; Start 02/24/19 at 18:15 Tizanidine HCl (Zanaflex) 4 mg PRN Q8HRS PRN PO MUSCLE SPASMS Last administered on 02/25/19at 20:51; Start 02/24/19 at 18:15 Bisacodyl (Dulcolax Tab) 10 mg DAILY PO Last administered on 02/25/19at 08:19; Start 02/25/19 at 09:00 Guaifenesin (MUCINEX ER with DM) 2 tab PRN Q12HR PRN PO COUGH 1ST CHOICE Last administered on 02/24/19at 23:10; Start 02/24/19 at 23:00 Sodium Chloride 1,000 ml @ 50 mls/hr Q20H IV Last administered on 02/25/19at 11 :50; Start 02/25/19 at 11:30 Active Scripts Active Reported Tylenol (Acetaminophen) 325 Mg Tablet 1 Tab PO HS Vitamin D3 (Cholecalciferol (Vitamin D3)) 1,000 Unit Tablet 1 Tab PO DAILY Fish Oil 1,000 mg Softgel ([place]-3S/Dha/Epa/Fish Oil) 1 Each Capsule 1 Each PO DAILY Humulin N (Nph, Human Insulin Isophane) 100 Unit/1 Ml Vial 18 Unit SQ BID94 Humulin R (Insulin Regular, Human) 100 Unit/1 Ml Vial 15 Unit IJ BID94 Oxycodon-Acetaminophen 7.5-325 (Oxycodone Hcl/Acetaminophen) 1 Each Tablet 7.5- 325 Mg PO PRN Q6HRS PRN Furosemide 20 Mg Tablet 20 Mg PO DAILY Ferrous Sulfate 325 Mg Tablet 325 Mg PO TID Gabapentin 600 Mg Tablet 600 Mg PO BID Aspirin 81 Mg Tab.chew 81 Mg PO DAILY08 last dose this amnext dose tomorrow am Metoprolol Succinate ( Xl ) (Metoprolol Succinate) 100 Mg Tab.er.24h 100 Mg PO DAILY last dose this am next dose tomorrow am Metformin Hcl 500 Mg Tablet 1,000 Mg PO BIDWMEALS need to take with supper Lisinopril 40 Mg Tablet 40 Mg PO DAILY last dose this am next dose in am Vitals/I & O Vital Sign - Last 24 Hours 02/25/19 02/25/19 02/25/19 02/25/19 11:00 14:00 15:00 19:00 Temp 97.7 98.2 98.6 97.7 98.2 98.6 Pulse 70 71 76 Resp 18 18 18 B/P (MAP) 122/71 (88) 141/66 (91) 154/58 (90) Pulse Ox 96 96 96 O2 Delivery Room Air Room Air Room Air Room Air 02/25/19 02/25/19 02/25/19 02/25/19 19:30 22:50 23:00 23:50 Temp 98.5 98.5 Pulse 73 Resp 17 18 16 B/P (MAP) 134/59 (84) Pulse Ox 96 97 97 O2 Delivery Room Air Room Air Room Air Room Air 02/26/19 03:00 Temp 98.0 98.0 Pulse 69 Resp 18 B/P (MAP) 148/68 (94) Pulse Ox 94 O2 Delivery Room Air Intake and Output 02/25/19 02/25/19 02/26/19 14:59 22:59 06:59 Intake Total 750 ml 500 ml Output Total 550 ml 925 ml 800 ml Balance 200 ml -425 ml -800 ml ANISHA LOVELL MD Feb 26, 2019 08:34
[2019-02-26] MEDS: INSULIN GLARGINE 300 UNITS/3 ML INSULN.PEN. SQ SCH ×2 (08:45→21:00)
[2019-02-26 11:00] VITALS: BP 151/66
[2019-02-26] MEDS: oxyCODONE/APAP 7.5/325 1 TAB TABLET PO PRN ×2 (11:39→20:56)
[2019-02-26] MEDS: tiZANidine 4 MG TABLET. PO PRN (11:39)
[2019-02-26 15:00] VITALS: BP 146/73
--- NOTE | 2019-02-26 17:51 | PDOC ---
PROGRESS NOTES Chief Complaint Chief Complaint ASSESSMENT: Hyponatremia, resolving Na now 128 Hypokalemia, resolved Vomiting, resolved Leukocytosis resolving BL Hip pain secondary to demineralization with mild spurring and degeneration within bilateral hips seen on xray. ortho consulted and nothing further to add. PMR consulted CAD DM Obesity PLAN: continue IVF follow Na, improved to 128 TSH and cortisol pending replaced K as needed elevated alk phos secondary to bone demineralization hold home lasix PT consult continue home meds for DM, CAD bmp in AM patient very weak and would benefit from rehab. sw consult for placement would like Na to be 130 prior to discharge hip pain improved with steroids Vitals Vitals Vital Signs Date Time Temp Pulse Resp B/P (MAP) Pulse Ox O2 Delivery O2 Flow Rate FiO2 02/26/19 15:04 94 Room Air 02/26/19 15:00 97.9 70 16 146/73 (97) 97.9 Physical Exam General: Alert, Oriented X3, Cooperative, No acute distress Lungs: Clear Extremities: No clubbing, No edema (distal pulses +1) Labs LABS Laboratory Tests Test 02/25/19 20:31 02/26/19 07:40 02/26/19 10:57 02/26/19 16:38 Glucose (Fingerstick) 147 mg/dL (70-99) 114 mg/dL (70-99) 121 mg/dL (70-99) 160 mg/dL (70-99) Assessment and Plan Assessmemt and Plan Problems Medical Problems: (1) Hyperglycemia Status: Acute (2) Hyponatremia Status: Acute Comment Review of Relevant I have reviewed the following items sy (where applicable) has been applied. Labs Laboratory Tests Test 02/24/19 20:31 02/25/19 05:25 02/25/19 07:26 02/25/19 11:46 Glucose (Fingerstick) 140 mg/dL (70-99) 159 mg/dL (70-99) 133 mg/dL (70-99) Sodium Level 128 mmol/L (136-145) Potassium Level 4.8 mmol/L (3.5-5.1) Chloride Level 93 mmol/L (98-107) Carbon Dioxide Level 25 mmol/L (21-32) Anion Gap 10 (6-14) Blood Urea Nitrogen 16 mg/dL (8-26) Creatinine 0.8 mg/dL (0.7-1.3) Estimated GFR (Cockcroft-Gault) 92.1 Glucose Level 191 mg/dL (70-99) Calcium Level 9.1 mg/dL (8.5-10.1) Test 02/25/19 16:24 02/25/19 20:31 02/26/19 07:40 02/26/19 10:57 Glucose (Fingerstick) 293 mg/dL (70-99) 147 mg/dL (70-99) 114 mg/dL (70-99) 121 mg/dL (70-99) Test 02/26/19 16:38 Glucose (Fingerstick) 160 mg/dL (70-99) Laboratory Tests Test 02/25/19 20:31 02/26/19 07:40 02/26/19 10:57 02/26/19 16:38 Glucose (Fingerstick) 147 mg/dL (70-99) 114 mg/dL (70-99) 121 mg/dL (70-99) 160 mg/dL (70-99) Medications Current Medications Fentanyl Citrate (Fentanyl 2ml Vial) 25 mcg 1X ONCE IV Last administered on at 14:12; Start 02/23/19 at 13:30; Stop 02/23/19 at 13:31; Status DC Ondansetron HCl (Zofran) 4 mg 1X ONCE IV Last administered on 02/23/19at 14:11 ; Start 02/23/19 at 13:30; Stop 02/23/19 at 13:31; Status DC Sodium Chloride 1,000 ml @ 1,000 mls/hr 1X ONCE IV Last administered on at 14:30; Start 02/23/19 at 14:30; Stop 02/23/19 at 15:29; Status DC Iohexol (Omnipaque 300 Mg/ml) 75 ml 1X ONCE IV ; Start 02/23/19 at 15:00; Stop 02/23/19 at 15:01; Status DC Info (CONTRAST GIVEN -- Rx MONITORING) 1 each PRN DAILY PRN MC SEE COMMENTS; Start 02/23/19 at 15:00; Stop 02/25/19 at 14:59; Status DC Acetaminophen/ Hydrocodone Bitart (Lortab 5/325) 1 tab 1X ONCE PO Last administered on 02/23/19at 15:59; Start 02/23/19 at 15:45; Stop 02/23/19 at 15:46 ; Status DC Ondansetron HCl (Zofran) 4 mg PRN Q8HRS PRN IV NAUSEA/VOMITING; Start 02/23/19 at 16:15; Stop 02/24/19 at 16:14; Status DC Fentanyl Citrate (Fentanyl 2ml Vial) 50 mcg PRN Q1HR PRN IV PAIN Last administered on 02/23/19 18:12; Start 02/23/19 at 16:15; Stop 02/24/19 at 16:14 ; Status DC Acetaminophen (Tylenol) 650 mg PRN Q4HRS PRN PO FEVER; Start 02/23/19 at 16:15 ; Stop 02/24/19 at 16:14; Status DC Potassium Chloride/Sodium Chloride 1,000 ml @ 100 mls/hr Q10H IV Last administered on 02/25/19 02:00; Start 02/23/19 at 20:30; Stop 02/25/19 at 11:28 ; Status DC Al Hydroxide/Mg Hydroxide (Mylanta Plus Xs) 30 ml PRN Q3HRS PRN PO HEARTBURN / GAS; Start 02/23/19 at 20:00 Senna/Docusate Sodium (Senna Plus) 1 tab BID PO Last administered on 02/26/19 08:33; Start 02/23/19 at 21:00 Magnesium Hydroxide (Milk Of Magnesia) 2,400 mg PRN Q12HR PRN PO CONSTIPATION; Start 02/23/19 at 20:00 Heparin Sodium (Porcine) (Heparin Sodium) 5,000 unit Q8HRS SQ Last administered on 02/26/19at 14:36; Start 02/23/19 at 22:00 Acetaminophen (Tylenol) 325 mg HS PO Last administered on 02/25/19 20:48; Start 02/23/19 at 21:00 Aspirin (Children'S Aspirin) 81 mg DAILY08 PO Last administered on 02/26/19 08 :33; Start 02/24/19 at 08:00 Vitamin D (Vitamin D3) 1,000 unit DAILY PO Last administered on 02/26/19 08:32 ; Start 02/24/19 at 09:00 Ferrous Sulfate (Feosol) 325 mg TID PO Last administered on 02/26/19 14:32; Start 02/23/19 at 21:00 Insulin Human Lispro (HumaLOG) 15 units BIDWMEALS SQ Last administered on 17:19; Start 02/24/19 at 08:00 Lisinopril (Prinivil) 40 mg DAILY PO Last administered on 02/26/19 08:33; Start 02/24/19 at 09:00 Metoprolol Succinate (Toprol Xl) 100 mg DAILY PO Last administered on 08:34; Start 02/24/19 at 09:00 Oxycodone/ Acetaminophen (Percocet 7.5/ 325) 1 tab PRN Q6HRS PRN PO PAIN Last administered on 02/26/19 11:39; Start 02/23/19 at 20:00 Gabapentin (Neurontin) 600 mg BID PO Last administered on 02/26/19 08:33; Start 02/23/19 at 21:00 Metformin HCl (Glucophage) 1,000 mg BIDWMEALS PO Last administered on 17:17; Start 02/25/19 at 17:00 Insulin Glargine (Lantus) 18 units BID SQ Last administered on 02/26/19 08:45 ; Start 02/23/19 at 21:00 Fish Oil (Fish Oil) 1,000 mg DAILY PO Last administered on 02/26/19 08:33; Start 02/24/19 at 09:00 Insulin Human Lispro (HumaLOG) 0-7 UNITS TIDWMEALS SQ Last administered on 02/26 17:20; Start 02/24/19 at 08:00 Dextrose (Dextrose 50%-Water Syringe) 12.5 gm PRN Q15MIN PRN IV SEE COMMENTS; Start 02/23/19 at 20:00 Prednisone (Prednisone) 10 mg DAILY PO Last administered on 02/26/19 08:33; Start 02/24/19 at 18:15 Pantoprazole Sodium (Protonix) 40 mg DAILYAC PO Last administered on 02/26/19 08:33; Start 02/24/19 at 18:15 Tizanidine HCl (Zanaflex) 4 mg PRN Q8HRS PRN PO MUSCLE SPASMS Last administered on 02/26/19 11:39; Start 02/24/19 at 18:15 Bisacodyl (Dulcolax Tab) 10 mg DAILY PO Last administered on 02/26/19at 08:34; Start 02/25/19 at 09:00 Guaifenesin (MUCINEX ER with DM) 2 tab PRN Q12HR PRN PO COUGH 1ST CHOICE Last administered on 02/24/19at 23:10; Start 02/24/19 at 23:00 Sodium Chloride 1,000 ml @ 50 mls/hr Q20H IV Last administered on 02/26/19at 08 :34; Start 02/25/19 at 11:30 Active Scripts Active Reported Tylenol (Acetaminophen) 325 Mg Tablet 1 Tab PO HS Vitamin D3 (Cholecalciferol (Vitamin D3)) 1,000 Unit Tablet 1 Tab PO DAILY Fish Oil 1,000 mg Softgel ([place]-3S/Dha/Epa/Fish Oil) 1 Each Capsule 1 Each PO DAILY Humulin N (Nph, Human Insulin Isophane) 100 Unit/1 Ml Vial 18 Unit SQ BID94 Humulin R (Insulin Regular, Human) 100 Unit/1 Ml Vial 15 Unit IJ BID94 Oxycodon-Acetaminophen 7.5-325 (Oxycodone Hcl/Acetaminophen) 1 Each Tablet 7.5- 325 Mg PO PRN Q6HRS PRN Furosemide 20 Mg Tablet 20 Mg PO DAILY Ferrous Sulfate 325 Mg Tablet 325 Mg PO TID Gabapentin 600 Mg Tablet 600 Mg PO BID Aspirin 81 Mg Tab.chew 81 Mg PO DAILY08 last dose this amnext dose tomorrow am Metoprolol Succinate ( Xl ) (Metoprolol Succinate) 100 Mg Tab.er.24h 100 Mg PO DAILY last dose this am next dose tomorrow am Metformin Hcl 500 Mg Tablet 1,000 Mg PO BIDWMEALS need to take with supper Lisinopril 40 Mg Tablet 40 Mg PO DAILY last dose this am next dose in am Vitals/I & O Vital Sign - Last 24 Hours 02/25/19 02/25/19 02/25/19 02/25/19 19:00 19:30 22:50 23:00 Temp 98.6 98.5 98.6 98.5 Pulse 76 73 Resp 18 B/P (MAP) 154/58 (90) 134/59 (84) Pulse Ox 96 96 97 O2 Delivery Room Air Room Air Room Air Room Air 02/25/19 02/26/19 02/26/1918/19 23:50 03:00 07:00 08:00 Temp 98.0 97.6 98.0 97.6 Pulse 69 64 Resp 16 18 16 B/P (MAP) 148/68 (94) 134/72 (92) Pulse Ox 94 94 O2 Delivery Room Air Room Air Room Air 02/26/19 02/26/19 02/26/19 02/26/19 08:33 08:34 11:00 11:39 Temp 98.4 98.4 Pulse 69 64 67 Resp 16 B/P (MAP) 148/68 134/72 151/66 (94) Pulse Ox 95 94 O2 Delivery Room Air Room Air 02/26/19 02/26/19 15:00 15:04 Temp 97.9 97.9 Pulse 70 Resp 16 B/P (MAP) 146/73 (97) Pulse Ox 96 94 O2 Delivery Room Air Room Air Intake and Output 02/25/19 02/25/19 02/26/19 15:00 23:00 07:00 Intake Total 750 ml 500 ml Output Total 550 ml 925 ml 800 ml Balance 200 ml -425 ml -800 ml MICHAEL MATHEWS MD Feb 26, 2019 17:51
[2019-02-26 19:00] VITALS: BP 151/76
[2019-02-26] MEDS: ACETAMINOPHEN 325 MG TABLET. PO SCH (20:55)
[2019-02-26 23:00] VITALS: BP 134/68
[2019-02-27 03:00] VITALS: BP 157/69
[2019-02-27] MEDS: IV NORMAL SALINE 1000ML BAG 1,000 ML IV SCH (05:48)
[2019-02-27] MEDS: HEPARIN for SUB-Q USE 5,000 UNIT/ML VIAL. SQ SCH (05:49)
[2019-02-27 07:00] VITALS: BP 178/76
[2019-02-27 07:13] LABS: CREATININE 0.8 mg/dL (0.7-1.3); GFR 92.1
[2019-02-27] MEDS: GABAPENTIN 300 MG CAPSULE. PO SCH (07:50)
[2019-02-27] MEDS: SENNOSIDES/DOCUSATE 8.6/50MG TABLET. PO SCH (07:50)
[2019-02-27] MEDS: CHOLECALCIFEROL (VITAMIN D3) 1,000 UNIT TABLET PO SCH (07:50)
[2019-02-27] MEDS: FERROUS SULFATE 325 MG TABLET. PO SCH (07:51)
[2019-02-27] MEDS: tiZANidine 4 MG TABLET. PO PRN (07:51)
[2019-02-27] MEDS: PANTOPRAZOLE 40 MG TABLET.DR. PO SCH (07:51)
[2019-02-27] MEDS: OMEGA-3 FATTY ACIDS/FISH OIL 1,000 MG CAPSULE. PO SCH (07:51)
[2019-02-27] MEDS: LISINOPRIL 20 MG TABLET PO SCH (07:51)
[2019-02-27] MEDS: predniSONE 10 MG TABLET PO SCH (07:51)
[2019-02-27] MEDS: oxyCODONE/APAP 7.5/325 1 TAB TABLET PO PRN (07:52)
[2019-02-27] MEDS: ASPIRIN CHEWABLE 81 MG TABLET. PO SCH (07:52)
[2019-02-27] MEDS: metFORMIN 500 MG TABLET PO SCH (07:52)
[2019-02-27] MEDS: BISACODYL 5 MG TABLET.DR. PO SCH (07:52)
[2019-02-27] MEDS: METOPROLOL SUCC 24HR ER 100 MG TAB.ER.24H. PO SCH (07:53)
[2019-02-27] MEDS: INSULIN LISPRO 300 UNITS/3 ML INSULN.PEN. SQ SCH ×3 (07:59→12:00)
[2019-02-27] MEDS: INSULIN GLARGINE 300 UNITS/3 ML INSULN.PEN. SQ SCH (08:00)
--- NOTE | 2019-02-27 09:44 | PDOC ---
PROGRESS NOTES Subjective Subjective He admits continued low back pain but he is moving in bed with less pain and he did make 6 steps with roller walker with physical therapy. Objective Objective Vital Signs Date Time Temp Pulse Resp B/P (MAP) Pulse Ox O2 Delivery O2 Flow Rate FiO2 02/27/19 08:58 96 Room Air 02/27/19 07:53 78 178/76 02/27/19 07:00 98.2 18 98.2 Intake and Output 02/27/19 07:00 Intake Total 1000 ml Output Total 1925 ml Balance -925 ml IV Total 1000 ml Output Urine Total 1925 ml # Voids 4 # Bowel Movements 1 Physical Exam Physical Exam He is supine in bed and seems to be in no acute distress and he continues with painfully limited lumbar spine ROM with tenderness to palpation over sacroiliac joints. Assessment Assessment Problems Medical Problems: (1) Hyperglycemia Status: Acute (2) Hyponatremia Status: Acute Plan Plan of Care To consider sacroiliac joint injections if pain persists. Comment Review of Relevant I have reviewed the following items sy (where applicable) has been applied. Labs Laboratory Tests Test 02/25/19 11:46 02/25/19 16:24 02/25/19 20:31 02/26/19 07:40 Glucose (Fingerstick) 133 mg/dL (70-99) 293 mg/dL (70-99) 147 mg/dL (70-99) 114 mg/dL (70-99) Test 02/26/19 10:57 02/26/19 16:38 02/26/19 20:53 02/27/19 06:23 Glucose (Fingerstick) 121 mg/dL (70-99) 160 mg/dL (70-99) 158 mg/dL (70-99) Sodium Level 131 mmol/L (136-145) Potassium Level 4.0 mmol/L (3.5-5.1) Chloride Level 96 mmol/L (98-107) Carbon Dioxide Level 26 mmol/L (21-32) Anion Gap 9 (6-14) Blood Urea Nitrogen 12 mg/dL (8-26) Creatinine 0.8 mg/dL (0.7-1.3) Estimated GFR (Cockcroft-Gault) 92.1 Glucose Level 111 mg/dL (70-99) Calcium Level 9.0 mg/dL (8.5-10.1) Test 02/27/19 07:34 Glucose (Fingerstick) 107 mg/dL (70-99) Laboratory Tests Test 02/26/19 10:57 02/26/19 16:38 02/26/19 20:53 02/27/19 06:23 Glucose (Fingerstick) 121 mg/dL (70-99) 160 mg/dL (70-99) 158 mg/dL (70-99) Sodium Level 131 mmol/L (136-145) Potassium Level 4.0 mmol/L (3.5-5.1) Chloride Level 96 mmol/L (98-107) Carbon Dioxide Level 26 mmol/L (21-32) Anion Gap 9 (6-14) Blood Urea Nitrogen 12 mg/dL (8-26) Creatinine 0.8 mg/dL (0.7-1.3) Estimated GFR (Cockcroft-Gault) 92.1 Glucose Level 111 mg/dL (70-99) Calcium Level 9.0 mg/dL (8.5-10.1) Test 02/27/19 07:34 Glucose (Fingerstick) 107 mg/dL (70-99) Medications Current Medications Fentanyl Citrate (Fentanyl 2ml Vial) 25 mcg 1X ONCE IV Last administered on at 14:12; Start 02/23/19 at 13:30; Stop 02/23/19 at 13:31; Status DC Ondansetron HCl (Zofran) 4 mg 1X ONCE IV Last administered on 02/23/19at 14:11 ; Start 02/23/19 at 13:30; Stop 02/23/19 at 13:31; Status DC Sodium Chloride 1,000 ml @ 1,000 mls/hr 1X ONCE IV Last administered on at 14:30; Start 02/23/19 at 14:30; Stop 02/23/19 at 15:29; Status DC Iohexol (Omnipaque 300 Mg/ml) 75 ml 1X ONCE IV ; Start 02/23/19 at 15:00; Stop 02/23/19 at 15:01; Status DC Info (CONTRAST GIVEN -- Rx MONITORING) 1 each PRN DAILY PRN MC SEE COMMENTS; Start 02/23/19 at 15:00; Stop 02/25/19 at 14:59; Status DC Acetaminophen/ Hydrocodone Bitart (Lortab 5/325) 1 tab 1X ONCE PO Last administered on 02/23/19 15:59; Start 02/23/19 at 15:45; Stop 02/23/19 at 15:46 ; Status DC Ondansetron HCl (Zofran) 4 mg PRN Q8HRS PRN IV NAUSEA/VOMITING; Start 02/23/19 at 16:15; Stop 02/24/19 at 16:14; Status DC Fentanyl Citrate (Fentanyl 2ml Vial) 50 mcg PRN Q1HR PRN IV PAIN Last administered on 02/23/19at 18:12; Start 02/23/19 at 16:15; Stop 02/24/19 at 16:14 ; Status DC Acetaminophen (Tylenol) 650 mg PRN Q4HRS PRN PO FEVER; Start 02/23/19 at 16:15 ; Stop 02/24/19 at 16:14; Status DC Potassium Chloride/Sodium Chloride 1,000 ml @ 100 mls/hr Q10H IV Last administered on 02/25/19 02:00; Start 02/23/19 at 20:30; Stop 02/25/19 at 11:28 ; Status DC Al Hydroxide/Mg Hydroxide (Mylanta Plus Xs) 30 ml PRN Q3HRS PRN PO HEARTBURN / GAS; Start 02/23/19 at 20:00 Senna/Docusate Sodium (Senna Plus) 1 tab BID PO Last administered on 02/27/19 07:50; Start 02/23/19 at 21:00 Magnesium Hydroxide (Milk Of Magnesia) 2,400 mg PRN Q12HR PRN PO CONSTIPATION; Start 02/23/19 at 20:00 Heparin Sodium (Porcine) (Heparin Sodium) 5,000 unit Q8HRS SQ Last administered on 02/27/19 05:49; Start 02/23/19 at 22:00 Acetaminophen (Tylenol) 325 mg HS PO Last administered on 02/26/19 20:55; Start 02/23/19 at 21:00 Aspirin (Children'S Aspirin) 81 mg DAILY08 PO Last administered on 02/27/19 07 :52; Start 02/24/19 at 08:00 Vitamin D (Vitamin D3) 1,000 unit DAILY PO Last administered on 02/27/19 07:50 ; Start 02/24/19 at 09:00 Ferrous Sulfate (Feosol) 325 mg TID PO Last administered on 02/27/19 07:51; Start 02/23/19 at 21:00 Insulin Human Lispro (HumaLOG) 15 units BIDWMEALS SQ Last administered on 07:59; Start 02/24/19 at 08:00 Lisinopril (Prinivil) 40 mg DAILY PO Last administered on 02/27/19 07:51; Start 02/24/19 at 09:00 Metoprolol Succinate (Toprol Xl) 100 mg DAILY PO Last administered on 07:53; Start 02/24/19 at 09:00 Oxycodone/ Acetaminophen (Percocet 7.5/ 325) 1 tab PRN Q6HRS PRN PO PAIN Last administered on 02/27/19 07:52; Start 02/23/19 at 20:00 Gabapentin (Neurontin) 600 mg BID PO Last administered on 02/27/19 07:50; Start 02/23/19 at 21:00 Metformin HCl (Glucophage) 1,000 mg BIDWMEALS PO Last administered on 07:52; Start 02/25/19 at 17:00 Insulin Glargine (Lantus) 18 units BID SQ Last administered on 02/27/19 08:00 ; Start 02/23/19 at 21:00 Fish Oil (Fish Oil) 1,000 mg DAILY PO Last administered on 02/27/19 07:51; Start 02/24/19 at 09:00 Insulin Human Lispro (HumaLOG) 0-7 UNITS TIDWMEALS SQ Last administered on 02/26 17:20; Start 02/24/19 at 08:00 Dextrose (Dextrose 50%-Water Syringe) 12.5 gm PRN Q15MIN PRN IV SEE COMMENTS; Start 02/23/19 at 20:00 Prednisone (Prednisone) 10 mg DAILY PO Last administered on 02/27/19 07:51; Start 02/24/19 at 18:15 Pantoprazole Sodium (Protonix) 40 mg DAILYAC PO Last administered on 02/27/19 07:51; Start 02/24/19 at 18:15 Tizanidine HCl (Zanaflex) 4 mg PRN Q8HRS PRN PO MUSCLE SPASMS Last administered on 02/27/19at 07:51; Start 02/24/19 at 18:15 Bisacodyl (Dulcolax Tab) 10 mg DAILY PO Last administered on 02/27/19at 07:52; Start 02/25/19 at 09:00 Guaifenesin (MUCINEX ER with DM) 2 tab PRN Q12HR PRN PO COUGH 1ST CHOICE Last administered on 02/24/19at 23:10; Start 02/24/19 at 23:00 Sodium Chloride 1,000 ml @ 50 mls/hr Q20H IV Last administered on 02/27/19at 05 :48; Start 02/25/19 at 11:30 Active Scripts Active Reported Tylenol (Acetaminophen) 325 Mg Tablet 1 Tab PO HS Vitamin D3 (Cholecalciferol (Vitamin D3)) 1,000 Unit Tablet 1 Tab PO DAILY Fish Oil 1,000 mg Softgel ([place]-3S/Dha/Epa/Fish Oil) 1 Each Capsule 1 Each PO DAILY Humulin N (Nph, Human Insulin Isophane) 100 Unit/1 Ml Vial 18 Unit SQ BID94 Humulin R (Insulin Regular, Human) 100 Unit/1 Ml Vial 15 Unit IJ BID94 Oxycodon-Acetaminophen 7.5-325 (Oxycodone Hcl/Acetaminophen) 1 Each Tablet 7.5- 325 Mg PO PRN Q6HRS PRN Furosemide 20 Mg Tablet 20 Mg PO DAILY Ferrous Sulfate 325 Mg Tablet 325 Mg PO TID Gabapentin 600 Mg Tablet 600 Mg PO BID Aspirin 81 Mg Tab.chew 81 Mg PO DAILY08 last dose this amnext dose tomorrow am Metoprolol Succinate ( Xl ) (Metoprolol Succinate) 100 Mg Tab.er.24h 100 Mg PO DAILY last dose this am next dose tomorrow am Metformin Hcl 500 Mg Tablet 1,000 Mg PO BIDWMEALS need to take with supper Lisinopril 40 Mg Tablet 40 Mg PO DAILY last dose this am next dose in am Vitals/I & O Vital Sign - Last 24 Hours 02/26/19 02/26/19 02/26/19 02/26/19 11:00 11:39 15:00 19:00 Temp 98.4 97.9 98.3 98.4 97.9 98.3 Pulse 67 70 89 Resp 16 16 16 B/P (MAP) 151/66 (94) 146/73 (97) 151/76 (101) Pulse Ox 95 94 96 96 O2 Delivery Room Air Room Air Room Air Room Air 02/26/19 02/26/19 02/26/19 02/27/19 19:25 20:56 23:00 03:00 Temp 98.3 97.9 98.3 97.9 Pulse 70 71 Resp 16 16 B/P (MAP) 134/68 (90) 157/69 (98) Pulse Ox 96 95 96 O2 Delivery Room Air Room Air Room Air Room Air 02/27/19 02/27/19 02/27/19 02/27/19 07:00 07:51 07:52 07:53 Temp 98.2 98.2 Pulse 78 78 78 Resp 18 B/P (MAP) 178/76 (110) 178/78 178/76 Pulse Ox 96 96 O2 Delivery Room Air Room Air 02/27/19 02/27/19 08:00 08:58 Pulse Ox 96 O2 Delivery Room Air Room Air Intake and Output 02/26/19 02/26/19 02/27/19 15:00 23:00 07:00 Intake Total 1000 ml Output Total 550 ml 875 ml 500 ml Balance -550 ml -875 ml 500 ml ANISHA LOVELL MD Feb 27, 2019 09:44
[2019-02-27 11:00] VITALS: BP 159/63
--- NOTE | 2019-02-27 11:57 | SNU/HH DC ---
DISCHARGE ORDERS DISCHARGE INFORMATION: FINAL DIAGNOSIS Problems Medical Problems: (1) Hyperglycemia Status: Acute (2) Hyponatremia Status: Acute CONDITION ON DISCHARGE: Stable CODE STATUS: Code Status: Full SENIOR CARE: SNF STAY <30 DAYS: Yes HOSPICE: HOSPICE: No HOSPICE EVAL & TREAT: No LTAC: ADMIT TO LTAC: No POST DISCHARGE ORDERS: ACTIVITY ORDERS: Activity as tolerated DIET AFTER DISCHARGE: Cardiac CHECKS AFTER DISCHARGE: CHECKS AFTER DISCHARGE: Check blood press - daily, Check blood sugar, ac/hs TREATMENT/EQUIPMENT ORDERS: ADAPTIVE EQUIPMENT NEEDED: None Physical Therapy For: Evalulation/Treatment Occupational Therapy For: Evaluation/Treatment DISCHARGE MEDICATIONS: Home Meds Reported Medications Acetaminophen (TYLENOL) 325 Mg Tablet, 1 TAB PO HS for pain, #30 TAB 02/23/19 Cholecalciferol (Vitamin D3) (VITAMIN D3) 1,000 Unit Tablet, 1 TAB PO DAILY for supplement, #30 TAB 5 Refills 02/23/19 [place]-3S/Dha/Epa/Fish Oil (Fish Oil 1,000 mg Softgel) 1 Each Capsule, 1 EACH PO DAILY for supplement, CAP 02/23/19 Nph, Human Insulin Isophane (HUMULIN N) 100 Unit/1 Ml Vial, 18 UNIT SQ BID94 for dm, EACH 02/23/19 Insulin Regular, Human (HUMULIN R) 100 Unit/1 Ml Vial, 15 UNIT IJ BID94 for dm, EACH 02/23/19 Oxycodone Hcl/Acetaminophen (OXYCODON-ACETAMINOPHEN 7.5-325) 1 Each Tablet, 7.5- 325 MG PO PRN Q6HRS PRN for PAIN 03/19/18 Furosemide (FUROSEMIDE) 20 Mg Tablet, 20 MG PO DAILY for water pill 03/19/18 Ferrous Sulfate (FERROUS SULFATE) 325 Mg Tablet, 325 MG PO TID for anemia 03/19/18 Gabapentin (GABAPENTIN) 600 Mg Tablet, 600 MG PO BID for nerve pain 10/26/17 Aspirin (ASPIRIN) 81 Mg Tab.chew, 81 MG PO DAILY08 for heart healthy, TAB.CHEW last dose this amnext dose tomorrow am 09/16/15 Metoprolol Succinate (METOPROLOL SUCCINATE ( XL )) 100 Mg Tab.er.24h, 100 MG PO DAILY for FOR HYPERTENSION, #30 TAB 0 Refills last dose this am next dose tomorrow am 09/16/15 Metformin Hcl (METFORMIN HCL) 500 Mg Tablet, 1000 MG PO BIDWMEALS for ANTI- DIABETIC, TAB 0 Refills need to take with supper 09/16/15 Lisinopril (LISINOPRIL) 40 Mg Tablet, 40 MG PO DAILY for FOR HYPERTENSION, #30 TAB 0 Refills last dose this am next dose in am 09/16/15 DWAIN RENTERIA III DO Feb 27, 2019 11:57
--- NOTE | 2019-02-27 12:50 | NUR ---
SW following pt. Orders faxed to [facility] and packet on chart. Pt will transport to at 1400 via central transport. Pt's choice and rights forms signed by pt and copies on chart. Pt's in room and agreeable with plans. KAI STEVENS.
--- NOTE | 2019-02-27 13:00 | PDOC ---
PROGRESS NOTES Chief Complaint Chief Complaint Weakness History of Present Illness History of Present Illness Patient resting comfortably in bed with at bedside. He is eager to discharge to rehab, plan to go to [facility]. Vitals Vitals Vital Signs Date Time Temp Pulse Resp B/P (MAP) Pulse Ox O2 Delivery O2 Flow Rate FiO2 02/27/19 11:00 97.5 65 16 159/63 (95) 97 Room Air 97.5 Physical Exam General: Alert, Oriented X3, Cooperative, No acute distress Heart: Regular rate, Normal S1, Normal S2, No murmurs Lungs: Clear Abdomen: Soft, No tenderness Extremities: No clubbing, No edema (distal pulses +1) Skin: No rashes, No breakdown Labs LABS Laboratory Tests Test 02/26/19 16:38 02/26/19 20:53 02/27/19 06:23 02/27/19 07:34 Glucose (Fingerstick) 160 mg/dL (70-99) 158 mg/dL (70-99) 107 mg/dL (70-99) Sodium Level 131 mmol/L (136-145) Potassium Level 4.0 mmol/L (3.5-5.1) Chloride Level 96 mmol/L (98-107) Carbon Dioxide Level 26 mmol/L (21-32) Anion Gap 9 (6-14) Blood Urea Nitrogen 12 mg/dL (8-26) Creatinine 0.8 mg/dL (0.7-1.3) Estimated GFR (Cockcroft-Gault) 92.1 Glucose Level 111 mg/dL (70-99) Calcium Level 9.0 mg/dL (8.5-10.1) Test 02/27/19 10:54 Glucose (Fingerstick) 113 mg/dL (70-99) Review of Systems Review of Systems as per above Assessment and Plan Assessmemt and Plan Problems Medical Problems: (1) Hyperglycemia Status: Acute (2) Hyponatremia Status: Acute ASSESSMENT: Hyponatremia, resolving Na now 131 Hypokalemia, resolved Generalized weakness Vomiting, resolved Leukocytosis resolving BL 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 Continue home meds Follow up with PCP within 7-10 days Discharge to rehab at [facility] today Comment Review of Relevant I have reviewed the following items sy (where applicable) has been applied. Labs Laboratory Tests Test 02/25/19 16:24 02/25/19 20:31 02/26/19 07:40 02/26/19 10:57 Glucose (Fingerstick) 293 mg/dL (70-99) 147 mg/dL (70-99) 114 mg/dL (70-99) 121 mg/dL (70-99) Test 02/26/19 16:38 02/26/19 20:53 02/27/19 06:23 02/27/19 07:34 Glucose (Fingerstick) 160 mg/dL (70-99) 158 mg/dL (70-99) 107 mg/dL (70-99) Sodium Level 131 mmol/L (136-145) Potassium Level 4.0 mmol/L (3.5-5.1) Chloride Level 96 mmol/L (98-107) Carbon Dioxide Level 26 mmol/L (21-32) Anion Gap 9 (6-14) Blood Urea Nitrogen 12 mg/dL (8-26) Creatinine 0.8 mg/dL (0.7-1.3) Estimated GFR (Cockcroft-Gault) 92.1 Glucose Level 111 mg/dL (70-99) Calcium Level 9.0 mg/dL (8.5-10.1) Test 02/27/19 10:54 Glucose (Fingerstick) 113 mg/dL (70-99) Laboratory Tests Test 02/26/19 16:38 02/26/19 20:53 02/27/19 06:23 02/27/19 07:34 Glucose (Fingerstick) 160 mg/dL (70-99) 158 mg/dL (70-99) 107 mg/dL (70-99) Sodium Level 131 mmol/L (136-145) Potassium Level 4.0 mmol/L (3.5-5.1) Chloride Level 96 mmol/L (98-107) Carbon Dioxide Level 26 mmol/L (21-32) Anion Gap 9 (6-14) Blood Urea Nitrogen 12 mg/dL (8-26) Creatinine 0.8 mg/dL (0.7-1.3) Estimated GFR (Cockcroft-Gault) 92.1 Glucose Level 111 mg/dL (70-99) Calcium Level 9.0 mg/dL (8.5-10.1) Test 02/27/19 10:54 Glucose (Fingerstick) 113 mg/dL (70-99) Medications Current Medications Fentanyl Citrate (Fentanyl 2ml Vial) 25 mcg 1X ONCE IV Last administered on at 14:12; Start 02/23/19 at 13:30; Stop 02/23/19 at 13:31; Status DC Ondansetron HCl (Zofran) 4 mg 1X ONCE IV Last administered on 02/23/19at 14:11 ; Start 02/23/19 at 13:30; Stop 02/23/19 at 13:31; Status DC Sodium Chloride 1,000 ml @ 1,000 mls/hr 1X ONCE IV Last administered on at 14:30; Start 02/23/19 at 14:30; Stop 02/23/19 at 15:29; Status DC Iohexol (Omnipaque 300 Mg/ml) 75 ml 1X ONCE IV ; Start 02/23/19 at 15:00; Stop 02/23/19 at 15:01; Status DC Info (CONTRAST GIVEN -- Rx MONITORING) 1 each PRN DAILY PRN MC SEE COMMENTS; Start 02/23/19 at 15:00; Stop 02/25/19 at 14:59; Status DC Acetaminophen/ Hydrocodone Bitart (Lortab 5/325) 1 tab 1X ONCE PO Last administered on 02/23/19at 15:59; Start 02/23/19 at 15:45; Stop 02/23/19 at 15:46 ; Status DC Ondansetron HCl (Zofran) 4 mg PRN Q8HRS PRN IV NAUSEA/VOMITING; Start 02/23/19 at 16:15; Stop 02/24/19 at 16:14; Status DC Fentanyl Citrate (Fentanyl 2ml Vial) 50 mcg PRN Q1HR PRN IV PAIN Last administered on 02/23/19at 18:12; Start 02/23/19 at 16:15; Stop 02/24/19 at 16:14 ; Status DC Acetaminophen (Tylenol) 650 mg PRN Q4HRS PRN PO FEVER; Start 02/23/19 at 16:15 ; Stop 02/24/19 at 16:14; Status DC Potassium Chloride/Sodium Chloride 1,000 ml @ 100 mls/hr Q10H IV Last administered on 02/25/19 02:00; Start 02/23/19 at 20:30; Stop 02/25/19 at 11:28 ; Status DC Al Hydroxide/Mg Hydroxide (Mylanta Plus Xs) 30 ml PRN Q3HRS PRN PO HEARTBURN / GAS; Start 02/23/19 at 20:00 Senna/Docusate Sodium (Senna Plus) 1 tab BID PO Last administered on 02/27/19 07:50; Start 02/23/19 at 21:00 Magnesium Hydroxide (Milk Of Magnesia) 2,400 mg PRN Q12HR PRN PO CONSTIPATION; Start 02/23/19 at 20:00 Heparin Sodium (Porcine) (Heparin Sodium) 5,000 unit Q8HRS SQ Last administered on 02/27/19 05:49; Start 02/23/19 at 22:00 Acetaminophen (Tylenol) 325 mg HS PO Last administered on 02/26/19 20:55; Start 02/23/19 at 21:00 Aspirin (Children'S Aspirin) 81 mg DAILY08 PO Last administered on 02/27/19 07 :52; Start 02/24/19 at 08:00 Vitamin D (Vitamin D3) 1,000 unit DAILY PO Last administered on 02/27/19 07:50 ; Start 02/24/19 at 09:00 Ferrous Sulfate (Feosol) 325 mg TID PO Last administered on 02/27/19 07:51; Start 02/23/19 at 21:00 Insulin Human Lispro (HumaLOG) 15 units BIDWMEALS SQ Last administered on 07:59; Start 02/24/19 at 08:00 Lisinopril (Prinivil) 40 mg DAILY PO Last administered on 02/27/19 07:51; Start 02/24/19 at 09:00 Metoprolol Succinate (Toprol Xl) 100 mg DAILY PO Last administered on 07:53; Start 02/24/19 at 09:00 Oxycodone/ Acetaminophen (Percocet 7.5/ 325) 1 tab PRN Q6HRS PRN PO PAIN Last administered on 02/27/19 07:52; Start 02/23/19 at 20:00 Gabapentin (Neurontin) 600 mg BID PO Last administered on 02/27/19 07:50; Start 02/23/19 at 21:00 Metformin HCl (Glucophage) 1,000 mg BIDWMEALS PO Last administered on 07:52; Start 02/25/19 at 17:00 Insulin Glargine (Lantus) 18 units BID SQ Last administered on 02/27/19 08:00 ; Start 02/23/19 at 21:00 Fish Oil (Fish Oil) 1,000 mg DAILY PO Last administered on 02/27/19 07:51; Start 02/24/19 at 09:00 Insulin Human Lispro (HumaLOG) 0-7 UNITS TIDWMEALS SQ Last administered on 02/26 17:20; Start 02/24/19 at 08:00 Dextrose (Dextrose 50%-Water Syringe) 12.5 gm PRN Q15MIN PRN IV SEE COMMENTS; Start 02/23/19 at 20:00 Prednisone (Prednisone) 10 mg DAILY PO Last administered on 02/27/19 07:51; Start 02/24/19 at 18:15 Pantoprazole Sodium (Protonix) 40 mg DAILYAC PO Last administered on 02/27/19 07:51; Start 02/24/19 at 18:15 Tizanidine HCl (Zanaflex) 4 mg PRN Q8HRS PRN PO MUSCLE SPASMS Last administered on 02/27/19 07:51; Start 02/24/19 at 18:15 Bisacodyl (Dulcolax Tab) 10 mg DAILY PO Last administered on 02/27/19 07:52; Start 02/25/19 at 09:00 Guaifenesin (MUCINEX ER with DM) 2 tab PRN Q12HR PRN PO COUGH 1ST CHOICE Last administered on 02/24/19 23:10; Start 02/24/19 at 23:00 Sodium Chloride 1,000 ml @ 50 mls/hr Q20H IV Last administered on 02/27/19 05 :48; Start 02/25/19 at 11:30 Active Scripts Active Reported Tylenol (Acetaminophen) 325 Mg Tablet 1 Tab PO HS Vitamin D3 (Cholecalciferol (Vitamin D3)) 1,000 Unit Tablet 1 Tab PO DAILY Fish Oil 1,000 mg Softgel ([place]-3S/Dha/Epa/Fish Oil) 1 Each Capsule 1 Each PO DAILY Humulin N (Nph, Human Insulin Isophane) 100 Unit/1 Ml Vial 18 Unit SQ BID94 Humulin R (Insulin Regular, Human) 100 Unit/1 Ml Vial 15 Unit IJ BID94 Oxycodon-Acetaminophen 7.5-325 (Oxycodone Hcl/Acetaminophen) 1 Each Tablet 7.5- 325 Mg PO PRN Q6HRS PRN Furosemide 20 Mg Tablet 20 Mg PO DAILY Ferrous Sulfate 325 Mg Tablet 325 Mg PO TID Gabapentin 600 Mg Tablet 600 Mg PO BID Aspirin 81 Mg Tab.chew 81 Mg PO DAILY08 last dose this amnext dose tomorrow am Metoprolol Succinate ( Xl ) (Metoprolol Succinate) 100 Mg Tab.er.24h 100 Mg PO DAILY last dose this am next dose tomorrow am Metformin Hcl 500 Mg Tablet 1,000 Mg PO BIDWMEALS need to take with supper Lisinopril 40 Mg Tablet 40 Mg PO DAILY last dose this am next dose in am Vitals/I & O Vital Sign - Last 24 Hours 02/26/19 02/26/19 02/26/19 02/26/19 15:00 19:00 19:25 20:56 Temp 97.9 98.3 97.9 98.3 Pulse 70 89 Resp 16 16 B/P (MAP) 146/73 (97) 151/76 (101) Pulse Ox 96 96 96 O2 Delivery Room Air Room Air Room Air Room Air 02/26/19 02/27/19 02/27/19 02/27/19 23:00 03:00 07:00 07:51 Temp 98.3 97.9 98.2 98.3 97.9 98.2 Pulse 70 71 78 78 Resp 16 16 18 B/P (MAP) 134/68 (90) 157/69 (98) 178/76 (110) 178/78 Pulse Ox 95 96 96 O2 Delivery Room Air Room Air Room Air 02/27/19 02/27/19 02/27/19 02/27/19 07:52 07:53 08:00 08:58 Pulse 78 B/P (MAP) 178/76 Pulse Ox 96 96 O2 Delivery Room Air Room Air Room Air 02/27/19 11:00 Temp 97.5 97.5 Pulse 65 Resp 16 B/P (MAP) 159/63 (95) Pulse Ox 97 O2 Delivery Room Air Intake and Output 02/26/19 02/26/19 02/27/19 14:59 22:59 06:59 Intake Total 1000 ml Output Total 550 ml 875 ml 500 ml Balance -550 ml -875 ml 500 ml DWAIN RENTERIA III DO Feb 27, 2019 12:59
--- NOTE | 2019-02-27 13:48 | PDOC3 ---
Discharge Summary Visit Information Date of Admission: Feb 21, 2019 Date of Discharge: Feb 27, 2019 Admitting Diagnosis: hyponatremia and weakness Final Diagnosis Problems Medical Problems: (1) Hyperglycemia Status: Acute (2) Hyponatremia Status: Acute Brief Hospital Course Allergies Allergies Coded Allergies Type Severity Reaction Last Updated Verified sitagliptin Allergy Severe Anaphylaxis 10/07/14 Yes NSAIDS (Non-Steroidal Anti-Inflamma Allergy Intermediate 10/08/14 Yes Vital Signs Vital Signs Date Time Temp Pulse Resp B/P (MAP) Pulse Ox O2 Delivery O2 Flow Rate FiO2 02/27/19 11:00 97.5 65 16 159/63 (95) 97 Room Air 97.5 Lab Results Laboratory Tests Test 02/25/19 16:24 02/25/19 20:31 02/26/19 07:40 02/26/19 10:57 Glucose (Fingerstick) 293 mg/dL (70-99) 147 mg/dL (70-99) 114 mg/dL (70-99) 121 mg/dL (70-99) Test 02/26/19 16:38 02/26/19 20:53 02/27/19 06:23 02/27/19 07:34 Glucose (Fingerstick) 160 mg/dL (70-99) 158 mg/dL (70-99) 107 mg/dL (70-99) Sodium Level 131 mmol/L (136-145) Potassium Level 4.0 mmol/L (3.5-5.1) Chloride Level 96 mmol/L (98-107) Carbon Dioxide Level 26 mmol/L (21-32) Anion Gap 9 (6-14) Blood Urea Nitrogen 12 mg/dL (8-26) Creatinine 0.8 mg/dL (0.7-1.3) Estimated GFR (Cockcroft-Gault) 92.1 Glucose Level 111 mg/dL (70-99) Calcium Level 9.0 mg/dL (8.5-10.1) Test 02/27/19 10:54 Glucose (Fingerstick) 113 mg/dL (70-99) Laboratory Tests Test 02/26/19 16:38 02/26/19 20:53 02/27/19 06:23 02/27/19 07:34 Glucose (Fingerstick) 160 mg/dL (70-99) 158 mg/dL (70-99) 107 mg/dL (70-99) Sodium Level 131 mmol/L (136-145) Potassium Level 4.0 mmol/L (3.5-5.1) Chloride Level 96 mmol/L (98-107) Carbon Dioxide Level 26 mmol/L (21-32) Anion Gap 9 (6-14) Blood Urea Nitrogen 12 mg/dL (8-26) Creatinine 0.8 mg/dL (0.7-1.3) Estimated GFR (Cockcroft-Gault) 92.1 Glucose Level 111 mg/dL (70-99) Calcium Level 9.0 mg/dL (8.5-10.1) Test 02/27/19 10:54 Glucose (Fingerstick) 113 mg/dL (70-99) Brief Hospital Course Mr. Dave is a 83 old [sex] who presented with hyponatremia and weakness. He was admitted we gave him physical therapy occupational therapy and IV normal saline. I resume his home meds. This morning I saw and examined the patient he was alert and oriented but weak. His heart tones were normal. His lungs were clear his abdomen was soft. Skin he had no rashes . Overall he is stable but debilitated we plan [facility]. Disposition is home Activity as tolerated Diet regular Medications please see below[ ] Discharge Information Follow Up: Weeks (2 weeks) Scheduled Acetaminophen (Tylenol) 325 Mg Tablet, 1 TAB PO HS for pain, #30 (Reported) Entered as Reported by: SAJAN BARCENAS on 02/23/191836 Last Taken: Unknown Dose on 02/22/19 2100 Last Action: Continued on 1955 by MICHAEL MATHEWS MD Aspirin (Aspirin) 81 Mg Tab.chew, 81 MG PO DAILY08 for heart healthy, (Reported) last dose this amnext dose tomorrow am Entered as Reported by: MIKE COBB [facility] on 09/16/15 1447 Last Taken: Unknown Dose on 02/23/19 0800 Last Action: Continued on 1955 by MICHAEL MATHEWS MD Cholecalciferol (Vitamin D3) (Vitamin D3) 1,000 Unit Tablet, 1 TAB PO DAILY for supplement, #30 Ref 5 (Reported) Entered as Reported by: SAJAN BARCENAS on 02/23/191836 Last Taken: Unknown Dose on 02/23/19 0800 Last Action: Continued on 1955 by MICHAEL MATHEWS MD Ferrous Sulfate (Ferrous Sulfate) 325 Mg Tablet, 325 MG PO TID for anemia, ( Reported) Entered as Reported by: ERVIN PAN on 03/19/18 1034 Last Taken: Unknown Dose on 02/23/19 0800 Last Action: Continued on 1955 by MICHAEL MATHEWS MD Furosemide (Furosemide) 20 Mg Tablet, 20 MG PO DAILY for water pill, (Reported) Entered as Reported by: ERVIN PAN on 03/19/18 1034 Last Taken: Unknown Dose on 02/23/19 0800 Last Action: HELD on 02/23/191955 by MICHAEL MATHEWS MD Gabapentin (Gabapentin) 600 Mg Tablet, 600 MG PO BID for nerve pain, (Reported) Entered as Reported by: Taryn Zhong on 10/26/17 1522 Last Action: Converted on 02/23/191955 by MICHAEL MATHEWS MD Insulin Regular, Human (Humulin R) 100 Unit/1 Ml Vial, 15 UNIT IJ BID94 for dm, (Reported) Entered as Reported by: SAJAN BARCENAS on 02/23/191836 Last Taken: Unknown Dose on 02/23/19 0800 Last Action: Continued on 1955 by MICHAEL MATHEWS MD Lisinopril (Lisinopril) 40 Mg Tablet, 40 MG PO DAILY for FOR HYPERTENSION, #30 Ref 0 (Reported) last dose this am next dose in am Entered as Reported by: MIKE COBB R[facility] on 09/16/15 1445 Last Taken: Unknown Dose on 02/23/19 08 Last Action: Continued on 1955 by MICHAEL MATHEWS MD Metformin Hcl (Metformin Hcl) 500 Mg Tablet, 1,000 MG PO BIDWMEALS for ANTI- DIABETIC, Ref 0 (Reported) need to take with supper Entered as Reported by: MIKE COBB R[facility] on 09/16/151446 Last Taken: Unknown Dose on 02/23/19 0800 Last Action: Converted on 1955 by MICHAEL MATHEWS MD Metoprolol Succinate (Metoprolol Succinate ( Xl )) 100 Mg Tab.er.24h, 100 MG PO DAILY for FOR HYPERTENSION, #30 Ref 0 (Reported) last dose this am next dose tomorrow am Entered as Reported by: MIKE COBB [facility] on 09/16/15 1447 Last Taken: Unknown Dose on 02/23/19 08 Last Action: Continued on 1955 by MICHAEL MATHEWS MD Nph, Human Insulin Isophane (Humulin N) 100 Unit/1 Ml Vial, 18 UNIT SQ BID94 for dm, (Reported) Entered as Reported by: SAJAN BARCENAS on 02/23/191836 Last Taken: Unknown Dose on 02/23/19799 Last Action: Converted on 1955 by MICHAEL MATHEWS MD [place]-3S/Dha/Epa/Fish Oil (Fish Oil 1,000 mg Softgel) 1 Each Capsule, 1 EACH PO DAILY for supplement, (Reported) Entered as Reported by: SAJAN BARCENAS on 02/23/191836 Last Taken: Unknown Dose on 02/23/19799 Last Action: Converted on 1955 by MICHAEL MATHEWS MD Scheduled PRN Oxycodone Hcl/Acetaminophen (Oxycodon-Acetaminophen 7.5-325) 1 Each Tablet, 7.5- 325 MG PO PRN Q6HRS PRN for PAIN, (Reported) Entered as Reported by: ERVIN PAN on 03/19/18 1109 Last Taken: Unknown Dose on 02/23/19 08 Last Action: Continued on 1955 by MD MYRA WHITE NIAL K III DO Feb 27, 2019 13:47
--- NOTE | 2019-02-27 15:01 | NUR ---
Discharge Note: RAISA VELASCO Discharge instructions and discharge home medications reviewed with Other facility and a copy given. All questions have been answered and understanding verbalized. The following instructions and handouts were given: Weakness Discontinued lines and drains: Peripheral IV intact. Patient discharged to Rehab Facility with Spouse via Wheelchair, transport by facility.
== END 2019-02-27 15:02 | DRG 638 ==
LOC: ER 12:19 → 5 NORTH 15:50 → OBSVTOIN 02-24 10:41
PROVIDERS: ADMIT Internal Medicine; ATTEND Internal Medicine
DX: E11.65 Type 2 diabetes mellitus with hyperglycemia (principal); E87.1 Hypo-osmolality and hyponatremia; E87.6 Hypokalemia; I25.10 Atherosclerotic heart disease of native coronary artery without angina pectoris; I10 Essential (primary) hypertension; E66.9 Obesity, unspecified; E11.42 Type 2 diabetes mellitus with diabetic polyneuropathy; Z68.34 Body mass index [BMI] 34.0-34.9, adult; Z88.8 Allergy status to other drugs, medicaments and biological substances; Z79.899 Other long term (current) drug therapy; D72.829 Elevated white blood cell count, unspecified; E83.39 Other disorders of phosphorus metabolism; G89.29 Other chronic pain; K59.00 Constipation, unspecified; Z79.4 Long term (current) use of insulin; Z92.3 Personal history of irradiation; Z85.46 Personal history of malignant neoplasm of prostate; Z82.49 Family history of ischemic heart disease and other diseases of the circulatory system; Z87.891 Personal history of nicotine dependence; Z96.653 Presence of artificial knee joint, bilateral; M54.5 Low back pain
CPT/HCPCS: 36415; 70450; 71045; 73521; 74177; 80048; 80053; 81001; 82248; 82533; 82962; 83690; 84300; 84443; 84484; 85007; 85025; 93005; 96374; 96375; G0378; G0379; J1644; J1815; J2405; J3010; J7030; J7512; 97110; 97140; 97530; 97535; 99285-25